=== PATIENT | male | born 1985 | race Caucasian/White ===

== ENCOUNTER 2021-10-20 22:40 | Emergency (ER) | payer MEDICARE, MEDICAID, SELFPAY ==
--- NOTE | ~2021-10-20 | XR_ITS ---
EXAMINATION: XR CHEST CLINICAL INFORMATION: Chest pain. COMPARISON: None TECHNIQUE: PA view of the chest was obtained. FINDINGS: Normal appearance of the cardiomediastinal silhouette. Adequately expanded lungs without airspace opacities, pleural effusions or pneumothorax. Healing bilateral rib fractures. No acute osseous abnormalities. XR/XR chest 1V IMPRESSION: No acute cardiopulmonary findings.
[2021-10-20 22:43] VITALS: BP 127/81; PULSE 85; RESP 18; TEMP 36.5; O2SAT 96; BMI 29.0
--- NOTE | 2021-10-20 22:50 | ECG_ITS ---
Test Reason : Chest Pain Blood Pressure : / mmHG Vent. Rate : 082 BPM Atrial Rate : 082 BPM P-R Int : 162 ms QRS Dur : 082 ms QT Int : 378 ms P-R-T Axes : 051 017 055 degrees QTc Int : 441 ms Normal sinus rhythm Normal ECG No previous ECGs available Referred By: Generic ED Physician Electronically Signed By:RYANN PALENCIA MD
--- NOTE | 2021-10-21 00:06 | ED_ITS ---
HPI - Chest Pain General Chief Complaint: Chest Pain Stated Complaint: Chest pain Time Seen by Provider: 10/21/21 00:06 Source: patient Mode of arrival: ambulatory Limitations: no limitations History of Present Illness HPI narrative: Patient with history of substance abuse cocaine and heroin clear for last 3 months smokes cigarettes no cardiac history noticed pain on the left side of chest after walking about 2 miles, patient does walk couple of miles every day which is usual for him. Pain is dull in character, constant since 16:00 no radiation get worse on palpation and movements , feels slight shortness of breath. Not been vaccinated lungs COVID no cough Related Data Allergies Allergy/AdvReac Type Severity Reaction Status Date / Time acetaminophen [ACETAMINOPHEN] Allergy Mild HIVES Unverified 08/15/20 17:23 Review of Systems Review of Systems: Yes all other systems are reviewed and are negative [facility] Past Medical History Medical History Drug abuse Social History Social History Alcohol intake: former Patient Tobacco Use Status: Current everyday Tobacco user Use of substances other than those prescribed or required for medical reasons: Unknown Advance Directives: No Advance Directives Information Provided: No Physical Exam Vital Signs: Vital Signs: Last Vital Signs Temp 97.9 F 10/21/21 00:16 Pulse 74 10/21/21 00:16 Resp 16 10/21/21 00:16 BP 123/90 H 10/21/21 00:16 Pulse Ox 98 10/21/21 00:16 Body Mass Index 29.0 Appearance: Alert. Oriented X3. No acute distress. Eyes: No pallor or icterus ENT: Pharynx normal. Oral Mucosa moist Neck: Normal inspection. Neck supple. CVS: Normal heart rate and rhythm. Pulses normal. Left chest wall tenderness++ Respiratory: No respiratory distress. Equal air entry bilateral, no wheezing/rales/rhonchi Abdomen: Soft and nontender. Bowel sounds are present, no mass palpable, no CVA tenderness Skin: Skin warm and dry. Normal skin color. Normal skin turgor. Extremities: No lower extremity edema. No calf tenderness Neuro: Oriented X 3. No motor deficit. MDM - Chest Pain MDM Narrative Medical decision making narrative: Patient atypical chest pain normal EKG normal high sensitive troponin with no risk factors heart score of 0 will discharge patient home advised to follow up with PCP/[facility] Lab Data Attestation: I reviewed the patient's lab results. Result diagrams: 10/21/21 00:14 10/21/21 00:14 Labs: Lab Results 10/21/21 10/21/21 10/21/21 Range/Units 00:14 00:14 00:14 WBC 11.3 H (4.8-10.8) X10*3/uL RBC 3.75 L (4.60-5.80) X10*6/uL Hgb 11.5 L (14.0-18.0) g/dl Hct 36.2 L (42.0-52.0) % MCV 96.5 (80.0-98.0) fL MCH 30.7 (27.0-33.0) pg MCHC 31.8 (31.0-36.0) g/dl RDW 14.0 (11.0-16.0) % Plt Count 463 H (160-400) X10*3/uL MPV 9.1 L (9.4-12.4) fL Immature Gran % (Auto) 0.4 (0.0-0.4) % Neut % (Auto) 53.0 (45-73) % Lymph % (Auto) 34.0 (20-40) % [place] % (Auto) 8.8 (2-11) % Eos % (Auto) 3.5 (0-4) % Baso % (Auto) 0.3 (0-2) % Lymph # (Auto) 3.8 (1.2-4.9) X10*3/uL [place] # (Auto) 1.0 (0.1-1.2) X10*3/uL Eos # (Auto) 0.4 (0.0-0.4) X10*3/uL Baso # (Auto) 0.0 (0.0-0.2) X10*3/uL Abs Immat Gran (auto) 0.05 H (0.00-0.03) X10*3/uL Absolute Neuts (auto) 6.0 (2.0-8.3) x10*3/uL Absolute Nucleated RBC 0.000 (0.0-0.012) X10*3/uL Nucleated RBC % (auto) 0.0 (0.0-0.2) /100WBC Sodium 144 (135-145) mmol/L Potassium 3.5 (3.3-5.1) mmol/L Chloride 106 (96-108) mmol/L Carbon Dioxide 31 H (22-29) mmol/L Anion Gap 11 L (12-20) BUN 15 (9-16) mg/dL Creatinine 1.22 (0.5-1.4) mg/dL Estim Creat Clear Calc 87.5 Estimated GFR > 60 Random Glucose 110 (60-115) mg/dL Calcium 9.1 (8.4-10.2) mg/dL Troponin I High Sens 4.2 (<3.5-35.0) ng/L ECG Data ECG #1: Interpretation: Normal sinus rhythm heart rate 82 beats per minute normal intervals normal axis no acute ST-T changes no acute ischemia impression normal EKG Scores Heart Score History: -0- slightly suspicious ECG: -0- normal Age: -0- < or = 45 Risk factory: -0- no risk factors known Troponin: -0- < or = normal limit Score: 0 Risk: 1.7% Discharge Plan Discharge Clinical Impression: Chest pain Qualifiers: Chest pain type: precordial pain Qualified Code(s): R07.2 - Precordial pain Patient Disposition: Home, Self-Care Instructions: Chest Pain (ED) Additional Instructions: Follow-up with your PCP for further evaluation your chest pain is unlikely from the heart Do not use cocaine
[2021-10-21 00:16] VITALS: BP 123/90; PULSE 74; RESP 16; TEMP 36.6; O2SAT 98
[2021-10-21 00:22] LABS: MANUAL DIFF FLAG NO
[2021-10-21 00:23] LABS: Basophils Percent Auto 0.3 % (0-2); Eosinophils Absolute Auto 0.4 X10*3/uL (0.0-0.4); Eosinophils Percent Auto 3.5 % (0-4); Hematocrit 36.2 % (42.0-52.0); Hemoglobin 11.5 g/dl (14.0-18.0); Imm Gran Abs Auto 0.05 X10*3/uL (0.00-0.03); Imm Gran Pct Auto 0.4 % (0.0-0.4); Lymphocytes Absolute Auto 3.8 X10*3/uL (1.2-4.9); Mean Corpuscular HGB Conc 31.8 g/dl (31.0-36.0); Mean Corpuscular Hemoglobin 30.7 pg (27.0-33.0); Mean Corpuscular Volume 96.5 fL (80.0-98.0); Mean Platelet Volume 9.1 fL (9.4-12.4); Monocytes Percent Auto 8.8 % (2-11); Platelet Count 463 X10*3/uL (160-400); Red Blood Count 3.75 X10*6/uL (4.60-5.80); White Blood Count 11.3 X10*3/uL (4.8-10.8)
[2021-10-21 00:37] LABS: Anion Gap 11 (12-20); Blood Urea Nitrogen 15 mg/dL (9-16); Calcium 9.1 mg/dL (8.4-10.2); Carbon Dioxide 31 mmol/L (22-29); Chloride 106 mmol/L (96-108); Creatinine Clr Calc Pharmacy 87.5; Estimated Glomerular Filt Rate > 60; Glucose Random 110 mg/dL (60-115); Potassium 3.5 mmol/L (3.3-5.1); Sodium 144 mmol/L (135-145)
[2021-10-21 00:42] LABS: Troponin-I High Sensitivity 4.2 ng/L (<3.5-35.0)
[2021-10-21] MEDS: Aspirin 81 MG TAB.CHEW 162 MG PO (00:51)
== END 2021-10-21 01:34 | disposition home or self-care (01) ==
PROVIDERS: Emergency Provider Internal Medicine
DX: R07.2 Precordial pain (principal); Z79.899 Other long term (current) drug therapy; Z87.891 Personal history of nicotine dependence
CPT/HCPCS: 36415; 71045; 80048; 84484; 85025; 93005; 99284; 99285

== ENCOUNTER 2021-11-24 14:32 | Emergency (ER) | payer MEDICARE, MEDICAID, SELFPAY ==
[2021-11-24 14:41] VITALS: BP 145/81; PULSE 18; O2SAT 95
== END 2021-11-24 19:03 | disposition left against medical advice (07) ==
PROVIDERS: Emergency Provider Emergency Medicine
DX: S01.91XA Laceration without foreign body of unspecified part of head, initial encounter (principal); X58.XXXA Exposure to other specified factors, initial encounter; Y93.9 Activity, unspecified; Y92.9 Unspecified place or not applicable; Y99.9 Unspecified external cause status

== ENCOUNTER 2022-09-18 22:40 | Emergency (ER) | payer MEDICARE, MEDICAID, SELFPAY ==
--- NOTE | ~2022-09-18 | XR_ITS ---
EXAMINATION: XR CHEST CLINICAL INFORMATION: Cough COMPARISON: 06/19/2021 TECHNIQUE: 2 views of the chest were obtained. FINDINGS: Streaky airspace opacities in the left perihilar region. Right hilar fullness favored to be projectional. Normal cardiac mediastinal silhouette. No pleural effusion or pneumothorax. No acute osseous abnormalities. XR/XR chest 2V IMPRESSION: Left perihilar streaky airspace opacity suspicious for pneumonia.
[2022-09-18 22:46] VITALS: PULSE 90; O2SAT 98; BMI 23.6
[2022-09-18 23:02] VITALS: BP 153/88; PULSE 88; RESP 16; TEMP 36.9; O2SAT 95
[2022-09-18 23:26] LABS: COVID-19 Test Negative (Negative)
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
--- NOTE | 2022-09-19 02:06 | PC.NURSE ---
Pt sleeping in no apparent distress. Breaths are even and unlabored with equal chest rises. Will continue to monitor.
[2022-09-19 06:01] VITALS: BP 125/66; PULSE 67; RESP 18; TEMP 36.5; O2SAT 98
[2022-09-19] MEDS: Naloxone HCl Nasal TAKE HOME 4 MG SPRAY NOSTRILALT (07:47)
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
== END 2022-09-19 08:11 | disposition home or self-care (01) ==
PROVIDERS: Emergency Provider Student in an Organized Health Care Education/Training Program
DX: F19.10 Other psychoactive substance abuse, uncomplicated (principal); J18.9 Pneumonia, unspecified organism; R45.1 Restlessness and agitation; F17.200 Nicotine dependence, unspecified, uncomplicated; Z20.822 Contact with and (suspected) exposure to COVID-19
CPT/HCPCS: 71046; 87635; 99283; 99284

== ENCOUNTER 2022-09-26 14:20 | Emergency (ER) | payer MEDICARE, MEDICAID, SELFPAY ==
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
[2022-09-26 14:29] VITALS: BP 128/80; PULSE 99; RESP 18; TEMP 36.7; O2SAT 95; BMI 23.5
--- NOTE | 2022-09-26 16:04 | ECG_ITS ---
Test Reason : CHEST PAIN Blood Pressure : / mmHG Vent. Rate : 078 BPM Atrial Rate : 078 BPM P-R Int : 152 ms QRS Dur : 078 ms QT Int : 366 ms P-R-T Axes : 057 050 052 degrees QTc Int : 417 ms Normal sinus rhythm Normal ECG When compared with ECG of 20-OCT-2021 22:57, No significant change was found Referred By: Wendy Jay Electronically Signed By:RYANN PALENCIA MD
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
[2022-09-26] MEDS: Diphth,Pertus(ACell),Tet Adult 0.5 ML SYRINGE IM (16:40)
[2022-09-26] MEDS: cefTRIAXone sodium 500 MG, Lidocaine HCl 1 % MPF 1 ML IM (17:12)
--- NOTE | 2022-09-26 17:12 | PC.NURSE ---
Nica from pharmacy instructed to orverride lidocaine from [facility] pyxis for ceftriaxone
== END 2022-09-26 17:17 | disposition home or self-care (01) ==
PROVIDERS: Emergency Provider Emergency Medicine
DX: S00.212A Abrasion of left eyelid and periocular area, initial encounter (principal); J18.9 Pneumonia, unspecified organism; R07.89 Other chest pain; F14.90 Cocaine use, unspecified, uncomplicated; Y04.2XXA Assault by strike against or bumped into by another person, initial encounter; Y93.9 Activity, unspecified; Y92.9 Unspecified place or not applicable; Y99.9 Unspecified external cause status; Z79.899 Other long term (current) drug therapy
CPT/HCPCS: 71046; 90471; 90715; 93005; 96372; 99284; J0696

== ENCOUNTER 2022-10-21 01:28 | Observation (INO) | payer MEDICARE, MEDICAID, SELFPAY ==
--- NOTE | ~2022-10-21 | CT_ITS ---
EXAMINATION: CT ELBOW, LEFT WITH CONTRAST CLINICAL INFORMATION: Pain. Rule out abscess. COMPARISON: None TECHNIQUE: Multidetector volumetric imaging of the left elbow performed after administration of 85 mL of Omnipaque 350 IV contrast. Coronal and sagittal reformatted images are obtained and reviewed. This CT examination was performed using dose optimization techniques as appropriate, variously including the following: *Automated exposure control *Adjustment of mA and/or kV according to patient size (this includes techniques or standardized protocols for targeted exams where dose is matched to indication/reason for exam; i.e. extremities or head) *Use of iterative reconstruction technique DLP: 108 mGy-cm FINDINGS: There is no fracture or dislocation. Appropriate alignment at the elbow. Joint spaces are maintained. There is no elbow joint effusion. There is a 0.4 cm radiopaque BB in the soft tissues along the radial aspect of the elbow at the level of the radial neck. This is within the musculature. Mild superficial edema over the dorsal aspect of the elbow. There is superficial skin irregularity. In this area there is more confluent fluid concerning for a developing collection. This measures approximately 1.9 x [address]/CT elbow LT w IV con IMPRESSION: 1. Superficial edema over the dorsal aspect of the elbow with superficial skin irregularity. There is underlying more confluent fluid concerning for a developing collection. This measures 1.9 x 1 x 1.2 cm. 2. Radiopaque BB in the musculature along the radial aspect of the elbow. 3. No acute osseous abnormality. No elbow joint effusion.
[2022-10-21 01:39] VITALS: BP 142/92; PULSE 92; RESP 18; TEMP 37.1; O2SAT 96; BMI 22.4
[2022-10-21 02:03] LABS: MANUAL DIFF FLAG NO
[2022-10-21 02:04] LABS: Basophils Absolute Auto 0.1 X10*3/uL (0.0-0.2); Basophils Percent Auto 0.6 % (0-2); Eosinophils Absolute Auto 0.3 X10*3/uL (0.0-0.4); Eosinophils Percent Auto 1.5 % (0-4); Hematocrit 38.3 % (42.0-52.0); Hemoglobin 12.3 g/dl (14.0-18.0); Imm Gran Abs Auto 0.07 X10*3/uL (0.00-0.03); Imm Gran Pct Auto 0.4 % (0.0-0.4); Lymphocytes Absolute Auto 3.1 X10*3/uL (1.2-4.9); Lymphocytes Percent Auto 19.2 % (20-40); Mean Corpuscular HGB Conc 32.1 g/dl (31.0-36.0); Mean Corpuscular Hemoglobin 28.3 pg (27.0-33.0); Mean Corpuscular Volume 88.2 fL (80.0-98.0); Mean Platelet Volume 8.9 fL (9.4-12.4); Monocytes Absolute Auto 1.1 X10*3/uL (0.1-1.2); Monocytes Percent Auto 6.9 % (2-11); Neutrophils Absolute Auto 11.7 x10*3/uL (2.0-8.3); Neutrophils Percent Auto 71.4 % (45-73); Platelet Count 423 X10*3/uL (160-400); Red Blood Count 4.34 X10*6/uL (4.60-5.80); Red Cell Distribution Width 12.7 % (11.0-16.0); White Blood Count 16.4 X10*3/uL (4.8-10.8)
[2022-10-21 02:14] VITALS: BP 143/93; PULSE 93; RESP 17; TEMP 37.3; O2SAT 96
[2022-10-21 02:18] LABS: Alanine Aminotransferase 18 U/L (0-40); Alkaline Phosphatase 90 U/L (39-117); Anion Gap 16 (12-20); Aspartate Amino Transferase 22 U/L (5-37); Bilirubin Direct < 0.2 mg/dL (0.0-0.5); Bilirubin Total 0.3 mg/dL (0.0-1.0); Blood Urea Nitrogen 12 mg/dL (9-16); Calcium 8.7 mg/dL (8.4-10.2); Carbon Dioxide 25 mmol/L (22-29); Chloride 98 mmol/L (96-108); Creatinine Clr Calc Pharmacy 121.7; Estimated Glomerular Filt Rate > 60; Glucose Random 215 mg/dL (60-115); Potassium 3.5 mmol/L (3.3-5.1); Sodium 135 mmol/L (135-145)
--- NOTE | 2022-10-21 02:45 | PC.NURSE ---
PT has been in restroom for approximately 15 min. This RN has knocked on door 3 times, each time pt reports not needing any help.
--- NOTE | 2022-10-21 03:10 | ED_ITS ---
HPI - Skin/Abscess/Foreign Bdy General Chief complaint: Skin/Abscess/Foreign Body Stated complaint: abscess on arm Time Seen by Provider: 10/21/22 02:15 Source: patient Mode of arrival: ambulatory Limitations: no limitations History of Present Illness HPI narrative: patient comes to the emergency room complaining of worsening abscess in the left elbow. Patient states it has been there for 4 days, started out with a scab which grew rapidly. Patient did went yesterday to a clinic, states that they were unwilling to drain the abscess and he was discharged home. The marked the area with a skin marker. The redness has significantly spread down his arm to his hand, no dorsum of the hand is swollen and erythematous. Patient denies fever chills. Patient was not started on antibiotics. Patient is willing to stay in the hospital if need be. Patient states that the joint itself does not hurt, it is the skin distal to the elbow that hurts the most. Patient denies fever/chills. Patient denies IV drug use, admits to snort drugs Related Data Previous Rx's Medication Instructions Recorded doxycycline hyclate 100 mg tablet 100 mg PO BID 5 days #10 tabs 09/19/22 Allergies Allergy/AdvReac Type Severity Reaction Status Date / Time acetaminophen [ACETAMINOPHEN] Allergy Mild HIVES Unverified 08/15/20 17:23 Review of Systems Review of Systems: Constitutional : No Weight loss, No Fever, No Chills, No Night Sweats, No Fatigue, No Malaise ENT/Mouth : No Hearing loss, No Ear Pain, No Nasal Congestion, No Sinus Pain, No Hoarseness, No sore throat, No Rhinorrhea, No Swallowing Difficulty Eyes: No Eye Pain, No Swelling, No Redness, No Foreign Body, No Discharge, No Vision Changes Cardiovascular : No Chest Pain, No SOB, No Dyspnea on Exertion, No Orthopnea, No Edema, No Palpitations Respiratory : No Cough, No Sputum, No Wheezing, No Smoke Exposure, No Dyspnea Gastrointestinal : No Nausea, No Vomiting, No Diarrhea, No Constipation, No abdominal Pain, No Hematochezia, No Melena Genitourinary : no irregular bleeding, No Dysuria, No Urinary Frequency, No Hematuria, No Urinary Incontinence, No Urgency, No Flank Pain, No Urinary Flow Changes, No Hesitancy Musculoskeletal : No joint pain, No Myalgias, No Joint Swelling Skin : complaining of cellulitis, erythema, draining abscess close to the left elbow Neuro : No Weakness, No Numbness, No Paresthesias, No Loss of Consciousness, No Dizziness, No Headache Psych : No Anxiety/Panic, No Depression, No SI/HI/AH/VH, No Social Issues, Heme/Lymph: No Bruising, No Bleeding,No Lymphadenopathy Endocrine : No Polyuria, No Polydipsia, No Temperature Intolerance [facility] Past Medical History Medical History Drug abuse Social History Social History Alcohol intake: never Patient Tobacco Use Status: Current everyday Tobacco user Substance Use Type: Crack/Cocaine Advance Directives: No Physical Exam Vital Signs: Vital Signs: Last Vital Signs Temp 99.2 F 10/21/22 02:14 Pulse 90 10/21/22 03:41 Resp 12 10/21/22 03:41 BP 119/70 10/21/22 03:41 Pulse Ox 99 10/21/22 03:41 O2 Del Method 10/21/22 03:41 BMI result Body Mass Index 22.4 Const: Other: Appearance: Alert. Oriented X3. No acute distress. Eyes: Pupils equal, round and reactive to light. ENT: Pharynx normal. Neck: Normal inspection. Neck supple. No lymph nodes noted. No crepitus CVS: Normal heart rate and rhythm. Pulses normal. Normal S1 and S2 Respiratory: No respiratory distress. Breath sounds normal. No Wheezing. No rales Abdomen: Soft and nontender. No rigidity. No distention. Skin: Skin warm and dry. on the left arm, there is significant erythema and swelling, the picture below Extremities: No lower extremity edema. patient able to flex and extend the elbow on the left side Neuro: Oriented X 3. No motor deficit. No sensory deficit. Moving all extremities. No slurred speech. CN 2 through 12 grossly intact Psych: calm, cooperative, normal affect Course Course Course Narrative: I discussed with the patient that he will need IV antibiotics, patient willing to stay. Labs and CT scan pending white blood cell count elevated, lactic acid within normal limits. No fever, normal blood pressure, sepsis not suspected. CT scan shows a possible fluid Collection patient received IV antibiotics, vancomycin and Zosyn I discussed the patient with Dr. Holloway, patient being admitted Medications Administered Discontinued Medications Generic Name Dose Route Start Last Admin Trade Name Freq PRN Reason Stop Dose Admin Piperacillin Sod/Tazobactam 50 mls @ 100 mls/hr 10/21/22 02:57 10/21/22 03:51 Sod 3.375 gm/ Sodium Chloride IV 10/21/22 03:26 100 mls/hr ONCE ONE Administration Iohexol 85 ml 10/21/22 03:42 10/21/22 03:43 Iohexol 350 Mg/Ml 100 Ml Infus..Btl IV 10/21/22 03:43 85 ml ONCE ONE Administration MDM - Skin/Abscess/Foreign Bdy Lab Data Result diagrams: 10/21/22 01:56 10/21/22 01:56 Labs: Lab Results 10/21/22 10/21/22 10/21/22 Range/Units 01:56 01:56 01:56 WBC 16.4 H (4.8-10.8) X10*3/uL RBC 4.34 L (4.60-5.80) X10*6/uL Hgb 12.3 L (14.0-18.0) g/dl Hct 38.3 L (42.0-52.0) % MCV 88.2 (80.0-98.0) fL MCH 28.3 (27.0-33.0) pg MCHC 32.1 (31.0-36.0) g/dl RDW 12.7 (11.0-16.0) % Plt Count 423 H (160-400) X10*3/uL MPV 8.9 L (9.4-12.4) fL Immature Gran % (Auto) 0.4 (0.0-0.4) % Neut % (Auto) 71.4 (45-73) % Lymph % (Auto) 19.2 L (20-40) % [place] % (Auto) 6.9 (2-11) % Eos % (Auto) 1.5 (0-4) % Baso % (Auto) 0.6 (0-2) % Lymph # (Auto) 3.1 (1.2-4.9) X10*3/uL [place] # (Auto) 1.1 (0.1-1.2) X10*3/uL Eos # (Auto) 0.3 (0.0-0.4) X10*3/uL Baso # (Auto) 0.1 (0.0-0.2) X10*3/uL Abs Immat Gran (auto) 0.07 H (0.00-0.03) X10*3/uL Absolute Neuts (auto) 11.7 H (2.0-8.3) x10*3/uL Absolute Nucleated RBC 0.000 (0.0-0.012) X10*3/uL Nucleated RBC % (auto) 0.0 (0.0-0.2) /100WBC ESR (0-15) MM/HR Sodium 135 (135-145) mmol/L Potassium 3.5 (3.3-5.1) mmol/L Chloride 98 (96-108) mmol/L Carbon Dioxide 25 (22-29) mmol/L Anion Gap 16 (12-20) BUN 12 (9-16) mg/dL Creatinine 0.77 (0.5-1.4) mg/dL Estim Creat Clear Calc 121.7 Estimated GFR > 60 Random Glucose 215 H (60-115) mg/dL Lactic Acid 2.0 (0.5-2.0) mmol/L Calcium 8.7 (8.4-10.2) mg/dL Total Bilirubin 0.3 (0.0-1.0) mg/dL Direct Bilirubin < 0.2 (0.0-0.5) mg/dL AST 22 (5-37) U/L ALT 18 (0-40) U/L Alkaline Phosphatase 90 (39-117) U/L C-Reactive Protein 10.20 H (< or = 0.50) mg/dL Total Protein 7.0 (6.5-8.0) g/dL Albumin 4.0 (3.5-5.0) g/dL 10/21/22 Range/Units 01:56 WBC (4.8-10.8) X10*3/uL RBC (4.60-5.80) X10*6/uL Hgb (14.0-18.0) g/dl Hct (42.0-52.0) % MCV (80.0-98.0) fL MCH (27.0-33.0) pg MCHC (31.0-36.0) g/dl RDW (11.0-16.0) % Plt Count (160-400) X10*3/uL MPV (9.4-12.4) fL Immature Gran % (Auto) (0.0-0.4) % Neut % (Auto) (45-73) % Lymph % (Auto) (20-40) % [place] % (Auto) (2-11) % Eos % (Auto) (0-4) % Baso % (Auto) (0-2) % Lymph # (Auto) (1.2-4.9) X10*3/uL [place] # (Auto) (0.1-1.2) X10*3/uL Eos # (Auto) (0.0-0.4) X10*3/uL Baso # (Auto) (0.0-0.2) X10*3/uL Abs Immat Gran (auto) (0.00-0.03) X10*3/uL Absolute Neuts (auto) (2.0-8.3) x10*3/uL Absolute Nucleated RBC (0.0-0.012) X10*3/uL Nucleated RBC % (auto) (0.0-0.2) /100WBC ESR 32 H (0-15) MM/HR Sodium (135-145) mmol/L Potassium (3.3-5.1) mmol/L Chloride (96-108) mmol/L Carbon Dioxide (22-29) mmol/L Anion Gap (12-20) BUN (9-16) mg/dL Creatinine (0.5-1.4) mg/dL Estim Creat Clear Calc Estimated GFR Random Glucose (60-115) mg/dL Lactic Acid (0.5-2.0) mmol/L Calcium (8.4-10.2) mg/dL Total Bilirubin (0.0-1.0) mg/dL Direct Bilirubin (0.0-0.5) mg/dL AST (5-37) U/L ALT (0-40) U/L Alkaline Phosphatase (39-117) U/L C-Reactive Protein (< or = 0.50) mg/dL Total Protein (6.5-8.0) g/dL Albumin (3.5-5.0) g/dL Discharge Plan Discharge Clinical Impression: Cellulitis Patient Disposition: Admitted As Inpatient
[2022-10-21 03:41] VITALS: BP 119/70; PULSE 90; RESP 12; O2SAT 99
[2022-10-21 03:42] LABS: Erythrocyte Sedimentation Rate 32 MM/HR (0-15)
[2022-10-21] MEDS: iohexoL 350 MG/ML 100 ML INFUS..BTL 85 ML IV (03:43)
[2022-10-21] MEDS: Piperacillin Sodium/Tazobactam 3.375 GM in 0.9 % Sodium Chloride 50 ML IV (03:51)
[2022-10-21] MEDS: vancomycin HCL 1,500 MG in 0.9 % Sodium Chloride 500 ML 333.33 MG IV (04:33)
[2022-10-21 04:56] LABS: COVID-19 Test Negative (Negative)
[2022-10-21 06:13] VITALS: BP 124/73; PULSE 85; RESP 12; TEMP 37.2; O2SAT 99
--- NOTE | 2022-10-21 06:13 | PC.NURSE ---
Pt given Food and drinks after checking with Johnson Hurtado. Pt requested the urinal and had a output of 600. Pt given call sol and two sandwiches and naila emily
--- NOTE | 2022-10-21 07:08 | P.HPHOSP_ITS ---
History of Present Illness Date of Service: 10/21/22 Chief Complaint: left elbow abscess 37-year-old male with past medical history of heroin abuse not by injection, presents the hospital with complaints of left elbow abscess. Patient is sleepy, but wakes up answers my questions and falls back asleep. Patient reported to the ED physician that he had this abscess about 4 days ago, started initially with a scab which grew rapidly. He went to a walk-in clinic yesterday, was recommended to drain the abscess but patient declined, who was given doxycycline and sent home. He comes back stating worsening redness swelling and pain. Denied fever chills, he has no difficulty with moving his elbow on no pain in the joint. On arrival to the ED patient hemodynamically stable with no significant abnormal vital Labs are significant for WBC count of 16.4, hemoglobin of 12.3, hematocrit 30.3, ESR 32, CRP of 10.2, COVID-19 negative Superficial edema over the dorsal aspect of the elbow superficial skin irregularity, underlying developing collection 1.1 x 1 x 1.2 cm. Abscess was drained in the ED and patient will be admitted for further management Review of Systems Review of Systems: Patient very sleepy, wakes up answers some questions and falls asleep Yes Unobtainable due to mental status PMFSH Medical History (Updated 10/21/22 @ 07:12 by Brodie Holloway MD) Drug abuse Heroin abuse Pertinent family history: Unknown Surgical History (Updated 10/21/22 @ 07:13 by Brodie Holloway MD) Surgical history unknown Social History (Updated 10/21/22 @ 07:13 by Brodie Holloway MD) Alcohol intake: never Patient Tobacco Use Status: Current everyday Tobacco user Use of substances other than those prescribed or required for medical reasons: Unknown Substance Use Type: Crack/Cocaine Advance Directives: No Meds Allergies Allergy/AdvReac Type Severity Reaction Status Date / Time acetaminophen [ACETAMINOPHEN] Allergy Mild HIVES Verified 10/21/22 04:23 Physical Exam Vital Signs and Narrative: Vital Signs: Last Vital Signs Temp 98.9 F 10/21/22 06:13 Pulse 85 10/21/22 06:13 Resp 12 10/21/22 06:13 BP 124/73 10/21/22 06:13 Pulse Ox 99 10/21/22 06:13 O2 Del Method 10/21/22 06:13 BMI result Body Mass Index 22.4 Skin: Other: Abscess at the left elbow, significant erythema edema tenderness and warmth of left arm from elbow to hand Results Labs CBC and Chem 7: 10/21/22 01:56 10/21/22 01:56 Labs: Laboratory Results - last 24 hr 10/21/22 10/21/22 10/21/22 01:56 01:56 01:56 MCV 88.2 MCH 28.3 MCHC 32.1 RDW 12.7 Plt Count 423 H MPV 8.9 L Immature Gran % (Auto) 0.4 Neut % (Auto) 71.4 Lymph % (Auto) 19.2 L [place] % (Auto) 6.9 Eos % (Auto) 1.5 Baso % (Auto) 0.6 Lymph # (Auto) 3.1 [place] # (Auto) 1.1 Eos # (Auto) 0.3 Baso # (Auto) 0.1 Abs Immat Gran (auto) 0.07 H Absolute Neuts (auto) 11.7 H Absolute Nucleated RBC 0.000 Nucleated RBC % (auto) 0.0 ESR Anion Gap 16 Estim Creat Clear Calc 121.7 Estimated GFR > 60 Random Glucose 215 H Lactic Acid 2.0 Calcium 8.7 Total Bilirubin 0.3 Direct Bilirubin < 0.2 AST 22 ALT 18 Alkaline Phosphatase 90 C-Reactive Protein 10.20 H Total Protein 7.0 Albumin 4.0 COVID-19 ([facility]) COVID-19 Clin Com 10/21/22 10/21/22 01:56 04:38 MCV MCH MCHC RDW Plt Count MPV Immature Gran % (Auto) Neut % (Auto) Lymph % (Auto) [place] % (Auto) Eos % (Auto) Baso % (Auto) Lymph # (Auto) [place] # (Auto) Eos # (Auto) Baso # (Auto) Abs Immat Gran (auto) Absolute Neuts (auto) Absolute Nucleated RBC Nucleated RBC % (auto) ESR 32 H Anion Gap Estim Creat Clear Calc Estimated GFR Random Glucose Lactic Acid Calcium Total Bilirubin Direct Bilirubin AST ALT Alkaline Phosphatase C-Reactive Protein Total Protein Albumin COVID-19 ([facility]) Negative COVID-19 Clin Com See Note Imaging Radiologist's Impressions: Impressions Elbow CT 10/21/22 03:23 IMPRESSION: 1. Superficial edema over the dorsal aspect of the elbow with superficial skin irregularity. There is underlying more confluent fluid concerning for a developing collection. This measures 1.9 x 1 x 1.2 cm. 2. Radiopaque BB in the musculature along the radial aspect of the elbow. 3. No acute osseous abnormality. No elbow joint effusion. Assessment and Plan (1) Cellulitis: Status: Acute (2) Abscess of left elbow: Status: Acute Plan 37-year-old male with past medical history of heroin crack abuse abuse by sniffing, denies IV drug use presents to the hospital with ulcer/abscess/cellulitis of left arm # cellulitis of left arm - will treat with IV antibiotics - failed outpatient therapy with doxycycline - follow cultures # abscess of left elbow -CT of the elbow shows collection 1.9 x 1 x 1.2 cm - abscess extraction was attempted in the ED - consult surgical team - continue IV antibiotics - follow cultures # heroin/crack cocaine abuse - reports no IV drug use, and sniffs both - monitor for drawl DVT prophylaxis: Lovenox Given need for IV antibiotics and failed outpatient therapy patient require minimum 2 night inpatient hospital Quality Stroke Does the patient have a stroke diagnosis?: No VTE Prior VTE?: No VTE Risk Level:: Medical - moderate - high VTE Device Contraindication: Treatment Not Indicated VTE Drug Contraindication: N/A - Med Ordered
[2022-10-21 07:45] VITALS: BP 135/83; PULSE 89; RESP 12; TEMP 36.4; O2SAT 99
[2022-10-21 08:23] VITALS: BMI 22.1
[2022-10-21 08:55] VITALS: BP 120/69; PULSE 87; RESP 12; TEMP 36.9; O2SAT 100
--- NOTE | 2022-10-21 09:29 | MHC.CM.PN ---
pt reports being home less covid vax x 2 pt will be seen by care team
[2022-10-21] MEDS: 0.9 % Sodium Chloride Flush 3 ML SYRINGE IVFLUSH (10:09)
--- NOTE | 2022-10-21 10:09 | PHA.MEDREC ---
Pharmacy Consult ? Medication Reconciliation Pharmacy has completed the medication reconciliation. Patient reports no home medications. Nica Iyer, HonorioD
--- NOTE | 2022-10-21 11:33 | P.CONGS_ITS ---
History of Present Illness Consult details Consult date: 10/21/22 Requesting physician: Brodie Holloway Narrative: 37-year-old male patient presenting to the emergency department with a left elbow abscess. He has a history of IV drug use and reports the abscess began approximately 4 days prior to presentation. The pain increased as did the swelling of the lower arm over the next several days. He presented initially to a walk-in clinic but refused incision and drainage. He was started on doxycycline was subsequently presented to the emergency department this morning. In the emergency department he was noted to have a WBC of 16.4. An area of black eschar was noted below the elbow with swelling extending down to the hand. A CT of the left elbow revealed superficial edema over the dorsal aspect of the elbow with superficial skin irregularity. There is underlying more confluent fluid concerning for developing collection measuring 1.9 x 1.0 x 1.2 cm. Radiopaque BB in the musculature along the radial aspect of the elbow is also noted. No acute osseous abnormality or elbow joint effusion. Incision and drainage was performed in the emergency department the ED physician. He was admitted to the hospitalist service for IV antibiotics. This morning patient reports improvement in the pain of his elbow. He is unaware of any BB in his arm. He denies fever or chills. Review of Systems Review of Systems: Yes all other systems are reviewed and are negative Constitutional: Constitutional: Denies chills and Denies fever(s) Musculoskeletal: Musculoskeletal: Reports as per HPI and Reports joint swelling Integumentary/Breasts: Skin/Breast: Reports as per HPI, Reports skin swelling, Reports sores and Reports wounds PMFSH Past Medical History Medical History Drug abuse Heroin abuse Surgical History Surgical History Surgical history unknown Social History Social History Household Members: Other Household Members Other:: Homeless Housing: Homeless Do you presently have visiting nurse or other home services: No Unable to assess alcohol history related to: Unable to respond Alcohol intake: never Patient Tobacco Use Status: Current everyday Tobacco user Tobacco use type: Cigarette Smoked in Last 30 Days: Yes Patient Interested in Nicotine Replacement: No Patient Given Instructions on How to Stop Smoking: No Use of substances other than those prescribed or required for medical reasons: Unknown Substance Use Type: Heroin Substance Use Frequency: Daily Last Used Substance: Just Prior to Admission Currently Displaying Signs/Symptoms of Drug Intoxication Withdrawal: No Have you been hit, kicked, punched, or otherwise hurt by someone within the past year? If so, by whom?: No Do you feel safe in your current relationship?: No Current Relationship Is there a partner from a previous relationship who is making you feel unsafe now?: No Are you made to feel afraid or neglected: No Advance Directives: No Do you have thoughts of harming others: None Do you have a plan to hurt others: No Plan Recently lost weight without trying: No Nutrition Risks: No Nutritional Risk Poor oral hygiene: No service: No Meds Allergies Allergy/AdvReac Type Severity Reaction Status Date / Time acetaminophen [ACETAMINOPHEN] Allergy Mild HIVES Verified 10/21/22 04:23 Active Medications: Current Medications Docusate Sodium (Docusate Sodium 100 Mg Capsule) 100 mg PO DAILY PRN PRN Reason: Constipation Vancomycin HCl 1,250 mg/ (Sodium Chloride) 250 mls @ 166.667 mls/hr IV Q12H [facility] Morphine Sulfate (Morphine Sulfate 4 Mg/Ml Cartridge) 4 mg IVPUSH Q4H PRN; Protocol PRN Reason: Pain, Severe (Pain Scale 7-10) Ondansetron HCl (Ondansetron Hcl 4 Mg/2 Ml Vial) 4 mg IVPUSH Q8H PRN PRN Reason: Nausea and Vomiting Pharmacy Consult (Consult Rx Vancomycin Dosing) 1 each MISCELLANE DAILY PRN PRN Reason: Consult order Sodium Chloride (0.9 % Sodium Chloride Flush 3 Ml Syringe) [facility] Admin: 10/21/22 10:09 Dose: 3 ml Physical Exam Vital Signs: Vital Signs: Last Vital Signs Temp 98.5 F 10/21/22 08:55 Pulse 87 10/21/22 08:55 Resp 12 10/21/22 08:55 BP 120/69 10/21/22 08:55 Pulse Ox 100 10/21/22 08:55 O2 Del Method 10/21/22 08:55 BMI result Body Mass Index 22.1 Const: General: no acute distress Nutritional Appearance: thin Orientation/consciousness: patient oriented x3 Neck: Neck: Yes full ROM and Yes supple Resp: Effort & Inspection: normal respiratory effort, no audible wheezes, no cough and no respiratory distress GI: Inspection: Yes normal to inspection Skin: General skin exam: no rashes or lesions noted Neuro: General: patient oriented x3 Extrem: Other: Left dorsal forearm with an open wound measuring approximately 1 cm in diameter with dark dried blood at the surface. Wound is open and draining serosanguineous fluid. No abscess is noted at this time. There is significant edema involving the arm and forearm extending to the fingers and light erythema especially around the elbow. Clean dressings were applied. Elbow/forearm/wrist images: 1. Abscess cavity left elbow Results Labs Result diagrams: 10/21/22 01:56 10/21/22 01:56 Labs: Abnormal lab results 10/21/22 10/21/22 10/21/22 Range/Units 01:56 01:56 01:56 WBC 16.4 H (4.8-10.8) X10*3/uL RBC 4.34 L (4.60-5.80) X10*6/uL Hgb 12.3 L (14.0-18.0) g/dl Hct 38.3 L (42.0-52.0) % Plt Count 423 H (160-400) X10*3/uL MPV 8.9 L (9.4-12.4) fL Lymph % (Auto) 19.2 L (20-40) % Abs Immat Gran (auto) 0.07 H (0.00-0.03) X10*3/uL Absolute Neuts (auto) 11.7 H (2.0-8.3) x10*3/uL ESR 32 H (0-15) MM/HR Random Glucose 215 H (60-115) mg/dL C-Reactive Protein 10.20 H (< or = 0.50) mg/dL Short CBC 10/21/22 Range/Units 01:56 WBC 16.4 H (4.8-10.8) X10*3/uL Hgb 12.3 L (14.0-18.0) g/dl Hct 38.3 L (42.0-52.0) % Plt Count 423 H (160-400) X10*3/uL BMP 10/21/22 01:56 Sodium 135 Potassium 3.5 Chloride 98 Carbon Dioxide 25 BUN 12 Creatinine 0.77 Calcium 8.7 Liver Function 10/21/22 Range/Units 01:56 Total Bilirubin 0.3 (0.0-1.0) mg/dL Direct Bilirubin < 0.2 (0.0-0.5) mg/dL AST 22 (5-37) U/L ALT 18 (0-40) U/L Alkaline Phosphatase 90 (39-117) U/L Albumin 4.0 (3.5-5.0) g/dL All other labs normal. Assessment and Plan (1) Abscess of left elbow: Status: Acute (2) Cellulitis: Status: Acute Plan 37-year-old male patient with history of IV drug use presenting with an abscess of the left dorsal forearm, status post incision and drainage in the emergency department earlier today. Wound does appear improved in certainly would benefit from IV antibiotics. The patient apparently wishes to be discharged today. He should keep the arm elevated as much as possible and taking antibiotics as prescribed. He may follow up my office in approximately 1 week for wound check and should keep the wound dressed on a daily basis. Procedures Date of Service Date of Service: 10/21/22
--- NOTE | 2022-10-21 11:43 | PM.DS ---
DS: Providers Provider Date of Service: 10/21/22 Date of admission: 10/21/22 07:05 Primary care physician: Unknown Physician Consults: 10/21/22 07:05 Consult to General Surgery Routine Consulting Provider: Shar Coelho Reason for consultation: Abscess Has provider been notified: No 10/21/22 11:08 Addiction Medicine Routine Consulting Provider: Addiction Covering Reason for consultation: methadone DS: Diagnosis Discharge Diagnosis (1) Cellulitis: Status: Acute (2) Abscess of left elbow: Status: Acute DS: Summary Hospital Course Hospital Course: Patient was admitted for management of abscess and cellulitis in setting of IV heroin use, he was to be treated with IV vancomycin and surgical evaluation, he elected to leave AMA without offering any compelling reason, addiction med has seen him and was working with him to start on meds. He was completly lucid, aler oriented to self, place, and time and understand he is making a decision that may not be in his best interest but is still leaving. He take responsibility for his health and understand complication can happen including even . Surgery has offered to see him in the office, I am sending Doxycyline to the pharmacy for him--he is aware of this. Time Spent with Patient Time attestation: Total time spent providing and/or coordinating discharge services: Discharge coordination time: Greater than 30 minutes Quality: Safe Use of Opioids Does Pt have an Active Cancer Diagnosis on the Problem List?: No Quality: Stroke Does the patient have a stroke diagnosis?: No Physical Exam Vital Signs: Vital Signs: Last Vital Signs Temp 98.5 F 10/21/22 08:55 Pulse 87 10/21/22 08:55 Resp 12 10/21/22 08:55 BP 120/69 10/21/22 08:55 Pulse Ox 100 10/21/22 08:55 O2 Del Method 10/21/22 08:55 BMI result Body Mass Index 22.1 DS: Data Data Completed and Pending Labs on day of discharge: Laboratory Results - last 24 hr 10/21/22 10/21/22 10/21/22 01:56 01:56 01:56 WBC 16.4 H RBC 4.34 L Hgb 12.3 L Hct 38.3 L MCV 88.2 MCH 28.3 MCHC 32.1 RDW 12.7 Plt Count 423 H MPV 8.9 L Immature Gran % (Auto) 0.4 Neut % (Auto) 71.4 Lymph % (Auto) 19.2 L [place] % (Auto) 6.9 Eos % (Auto) 1.5 Baso % (Auto) 0.6 Lymph # (Auto) 3.1 [place] # (Auto) 1.1 Eos # (Auto) 0.3 Baso # (Auto) 0.1 Abs Immat Gran (auto) 0.07 H Absolute Neuts (auto) 11.7 H Absolute Nucleated RBC 0.000 Nucleated RBC % (auto) 0.0 ESR Sodium 135 Potassium 3.5 Chloride 98 Carbon Dioxide 25 Anion Gap 16 BUN 12 Creatinine 0.77 Estim Creat Clear Calc 121.7 Estimated GFR > 60 Random Glucose 215 H Lactic Acid 2.0 Calcium 8.7 Total Bilirubin 0.3 Direct Bilirubin < 0.2 AST 22 ALT 18 Alkaline Phosphatase 90 C-Reactive Protein 10.20 H Total Protein 7.0 Albumin 4.0 COVID-19 (JORGE) COVID-19 [facility] 10/21/22 10/21/22 01:56 04:38 WBC RBC Hgb Hct MCV MCH MCHC RDW Plt Count MPV Immature Gran % (Auto) Neut % (Auto) Lymph % (Auto) [place] % (Auto) Eos % (Auto) Baso % (Auto) Lymph # (Auto) [place] # (Auto) Eos # (Auto) Baso # (Auto) Abs Immat Gran (auto) Absolute Neuts (auto) Absolute Nucleated RBC Nucleated RBC % (auto) ESR 32 H Sodium Potassium Chloride Carbon Dioxide Anion Gap BUN Creatinine Estim Creat Clear Calc Estimated GFR Random Glucose Lactic Acid Calcium Total Bilirubin Direct Bilirubin AST ALT Alkaline Phosphatase C-Reactive Protein Total Protein Albumin COVID-19 (JORGE) Negative COVID-19 Clin Com See Note Discharge Plan Discharge Anticipated Discharge Date/Time: 10/21/22 11:37 Patient Disposition: Left Against Medical Advice Discharge Diagnosis: Left elbow abscess and Cellulitis Referrals: Shar Coelho MD [Physician] - 1 Week (Call for appointment) PhysicianSylvia [Primary Care Provider] - 1 Week Discharge Medications: New doxycycline hyclate 100 mg tablet 100 mg PO BID 7 Days Qty: 14 0RF Discharge Orders: Discharge Order (Routine); Ordered 10/21/22 Ordered By: Frederick Darling Diet: Advance to usual diet Activity on Discharge: As tolerated Care Plan Goals: Full recovery from cellulitis Health Concerns: Substance use desorder cellulitis and abscess of left elbow Plan of Treatment: Take Doxycyline as recommended and follow up with Dr. Coelho in week, You understand you are leaving against medical or doctor's advise and take full responsibility for your health and complications, including the possibility of Assessment: as above
--- NOTE | 2022-10-21 11:46 | MHC.RECOVRN ---
Met with pt in 453 to discuss substance use and assess for withdrawal symptoms. Upon entering pts room, pt in bed, restless and diaphoretic, reporting desire to discharge. Pt reports heroin use, 5 bags daily, IN, as well as crack, INH, a lot. Pt educated regarding medications available to address withdrawal symptoms. Pt declines medications at this time and would like to discharge and return to the hospital at a later time. Pt respectful and grateful for options. Discussed with RN.
--- NOTE | 2022-10-21 12:40 | PHA.PROG ---
"Admission Date/Time: October 21, 2022 07:05 Indication: Abscess Weight in k.98 kg Adjusted body weight in K.2 kg [place] body weight in K.1 kg Obesity Dosing Indication % IBW: N/A Serum Creatinine - Last 168 Hours 10/21/22 01:56 Creatinine 0.77 Estimated CrCl and GFR - Last 168 Hours 10/21/22 01:56 Estim Creat Clear Calc 121.7 Estimated GFR > 60 Vancomycin Loading Dose: 1500 mg Current Vancomycin Dosing Regimen: 1250 mg Q12H Date and Time for next Vancomycin Level to be drawn: 10/22 @ 1500 Pharmacist Comments on Vancomycin Plan: Patient received loading dose overnight in the ER 06/20 @ 0433. Maintenance dose scheduled to start 06/20 @ 1700. Expected AUC 548 with a trough of 15.8. Trough to be drawn prior to 4th dose Pharmacy to monitor renal function daily. Nica Iyer, Honoriod Vancomycin dosing will take advantage of [employer] as a clinical decision support tool that uses Bayesian modeling to calculate individual patient's pharmacokinetic parameters and forecast the patient's drug concentration time course with the target goal AUC 24 range of 400 - 600 mg/L/hr."
== END 2022-10-21 13:15 | disposition left against medical advice (07) ==
LOC: HO.ED 03:17 → HO.EDOVER 07:26 → HO.IMC 07:37
PROVIDERS: Admitting Provider Internal Medicine; Emergency Provider Emergency Medicine; Visit Provider Internal Medicine
DX: F19.10 Other psychoactive substance abuse, uncomplicated (principal); L03.114 Cellulitis of left upper limb; L02.414 Cutaneous abscess of left upper limb; F14.10 Cocaine abuse, uncomplicated; F17.210 Nicotine dependence, cigarettes, uncomplicated; Z20.822 Contact with and (suspected) exposure to COVID-19
CPT/HCPCS: 36415; 73201; 80053; 82248; 83605; 85025; 85652; 86140; 87040; 87070; 87077; 87186; 87205; 87635; 96365; 96366; 96367; 99219; 99285; J2543; J3370; Q9967

== ENCOUNTER 2022-10-29 04:42 | Emergency (ER) | payer MEDICARE, MEDICAID, SELFPAY ==
--- NOTE | ~2022-10-29 | XR_ITS ---
EXAMINATION: XR ELBOW, LEFT CLINICAL INFORMATION: Pain COMPARISON: 10/21/2022 TECHNIQUE: AP, lateral, and oblique views of the left elbow. FINDINGS: Osseous alignment is anatomic. No acute fracture is seen. Dorsal soft tissue swelling is noted overlying the olecranon. Redemonstrated BB adjacent to the proximal radius. XR/XR elbow LT 2V IMPRESSION: No acute osseous findings. Dorsal soft tissue swelling overlying the olecranon.
[2022-10-29 04:47] VITALS: BP 143/111; PULSE 76; RESP 20; TEMP 36.1; O2SAT 98; BMI 25.8
[2022-10-29 05:31] VITALS: BP 163/98; PULSE 70
--- NOTE | 2022-10-29 06:46 | ED.WOUNDLAC ---
HPI - Wound/Laceration General Chief Complaint: Wound/Laceration Stated Complaint: wound infection on arm Time Seen by Provider: 10/29/22 06:42 Source: patient Mode of arrival: ambulatory History of Present Illness HPI narrative: 37-year-old male with no significant past medical history presents to the emergency department today complaining of left elbow pain. Patient states he noticed a scab on the elbow approximately a week and a half ago. Patient states he picked it and became infected. Was given antibiotics, although he does not remember where he was seen or the name of the antibiotic. Presents to the emergency department today complaining of continued pain and swelling of the left elbow. States it does seem better, but is not gone away. Denies fevers, shaking chills. Review of the patient's chart reveals that the patient was actually here on the 21 of October. He was given IV antibiotics here in the emergency department, and admitted to the hospital. He was seen in consultation by surgery, but left against medical advice. Patient was given a prescription for doxycycline on discharge. Onset (ago): week(s) Extremity Location: left: elbow Patient tetanus UTD: Yes Context: accidental Associated symptoms: pain Related Data Previous Rx's Medication Instructions Recorded doxycycline hyclate 100 mg tablet 100 mg PO BID 7 days #14 tabs 10/21/22 Allergies Allergy/AdvReac Type Severity Reaction Status Date / Time acetaminophen [ACETAMINOPHEN] Allergy Mild HIVES Verified 10/29/22 04:51 Review of Systems Constitutional: Constitutional: Reports as per HPI, Denies chills and Denies fever(s) Eyes: Eyes: Denies blurry vision and Denies diplopia ENT: Reports system reviewed and no additional complaints, except as documented Cardiovascular: Cardiovascular: Reports no additional cardiovascular complaints and Denies dyspnea Respiratory: Respiratory: Denies cough and Denies dyspnea Musculoskeletal: Musculoskeletal: Reports no additional musculoskeletal complaints Integumentary/Breasts: Skin/Breast: Reports as per HPI and Reports wounds Neurologic: Reports system reviewed and no additional complaints, except as documented and Denies confusion Psychiatric: Psychiatric: Denies confusion PMFSH Past Medical History Medical History Drug abuse Heroin abuse Surgical History Surgical history unknown Social History Social History Household Members: Other Household Members Other:: Homeless Housing: Homeless Do you presently have visiting nurse or other home services: No Unable to assess alcohol history related to: Unable to respond Alcohol intake: never Patient Tobacco Use Status: Current everyday Tobacco user Tobacco use type: Cigarette Substance Use Type: Heroin Advance Directives: No service: No Physical Exam Vital Signs: Vital Signs: Last Vital Signs Temp 96.9 F 10/29/22 04:47 Pulse 70 10/29/22 05:31 Resp 20 10/29/22 04:47 BP 163/98 H 10/29/22 05:31 Pulse Ox 98 10/29/22 04:47 O2 Del Method 10/29/22 04:47 BMI result Body Mass Index 25.8 Vital signs noted to be normal. Afebrile Const: General: cooperative and no acute distress; No combative, confusion or intoxicated appearing Nutritional Appearance: average body habitus Orientation/consciousness: patient oriented x3 and No confusion Resp: Effort & Inspection: normal respiratory effort, no cough and respiratory effort not decreased Cardio: Rate: regular rate Rhythm: regular rhythm Skin: Other: There is an area of redness in the area of the olecranon bursa measuring approximately 3.5 cm diameter. Comparison with pictures which are in the chart from previous visit, the wound and area appear to be significantly improved. There is no fluctuance and mild to moderate tenderness of the area. There is no active discharge. Neuro: General: patient oriented x3 and No confusion Course Reevaluation(s) Reevaluation #1: Notified that patient has eloped from the ED. Did not notify me that he was leaving. The RN was able to remove the IV prior to elopement. Time: 10:31 Medications Administered Discontinued Medications Generic Name Dose Route Start Last Admin Trade Name Freq PRN Reason Stop Dose Admin Vancomycin HCl 1,000 mg/ 270 mls @ 270 mls/hr 10/29/22 06:57 10/29/22 07:19 Sodium Chloride IV 10/29/22 07:56 270 mls/hr ONCE ONE Administration MDM - Wound/Laceration MDM Narrative Medical decision making narrative: 37-year-old male with cellulitis of the left elbow in the olecranon bursa area. Cultures were positive for MRSA previously. The patient did receive some antibiotics here in the emergency department, and the plan was to discharge with oral antibiotics, however the patient decided to elope prior to formal discharge. Antibiotics were not prescribed. Medical Records Attestation: I reviewed the patient's medical records. Medical records narrative: Wound culture from the October 21 reveals MRSA. Discharge Plan Discharge Clinical Impression: Abscess, Cellulitis Patient Disposition: Elopement Prescriptions: No Action doxycycline hyclate 100 mg tablet 100 mg PO BID 7 Days Qty: 14 0RF Interventions: ED Discharge Assessment Last Done: 10/29/22 10:33 Discharge Date/Time: 10/29/22 10:34
[2022-10-29] MEDS: vancomycin HCL 1,000 MG in 0.9 % Sodium Chloride 250 ML 270 MG IV (07:19)
--- NOTE | 2022-10-29 10:34 | PC.NURSE ---
Pt states he is feeling ready to go after toast and naila emily. Refusing to stay, IV removed
== END 2022-10-29 10:34 | disposition left against medical advice (07) ==
PROVIDERS: Emergency Provider Emergency Medicine
DX: L03.114 Cellulitis of left upper limb (principal); L02.414 Cutaneous abscess of left upper limb; F19.10 Other psychoactive substance abuse, uncomplicated; F17.210 Nicotine dependence, cigarettes, uncomplicated
CPT/HCPCS: 73070; 99283; 99284; J3370

== ENCOUNTER 2022-11-01 19:42 | Emergency (ER) | payer MEDICARE, MEDICAID, SELFPAY ==
--- NOTE | ~2022-11-01 | XR_ITS ---
EXAMINATION: XR ELBOW, LEFT CLINICAL INFORMATION: Infection COMPARISON: 10/29/2022 TECHNIQUE: AP, lateral, and oblique views of the left elbow. FINDINGS: No joint effusion. No acute osseous abnormality. Mild degenerative changes at the medial aspect with small marginal osteophytes. Posterior soft tissue swelling, possibly olecranon bursitis. No underlying periostitis or cortical erosion. There is a metallic the BB soft tissues lateral to the proximal radius. XR/XR elbow LT 2V IMPRESSION: 1. Posterior soft tissue swelling, possibly olecranon bursitis. No acute osseous abnormality. No joint effusion. Mild degenerative change.
[2022-11-01 19:43] VITALS: BP 171/84; PULSE 86; RESP 17; TEMP 36.8; O2SAT 98; BMI 23.5
--- NOTE | 2022-11-01 19:45 | ED_ITS ---
HPI - Skin/Abscess/Foreign Bdy General Chief complaint: Wound/Laceration <Josefa Sifuentes NP - Last Filed: 11/01/22 19:50> Stated complaint: infection on L elbow <Josefa Sifuentes NP - Last Filed: 11/01/22 19:50> Time Seen by Provider: 11/01/22 21:29 <Josefa Sifuentes NP - Last Filed: 11/01/22 19:50> Source: patient <WINSTON Sykes - Last Filed: 11/02/22 00:25> Mode of arrival: ambulatory <WINSTON Sykes - Last Filed: 11/02/22 00:25> Limitations: no limitations <WINSTON Sykes - Last Filed: 11/02/22 00:25> History of Present Illness HPI narrative: This is a 37-year-old male past medical history significant for substance use disorder, presents to the emergency department with redness to left elbow, that has not gone away tells me that redness has been present for weeks in the started around September.? Tells me he has been on antibiotics however he is not taking them as prescribed.? He tells me it looks much better than before.? Before he was to have pain with range of motion he tells me he is no longer having that however the redness is not going away.? He tells me his left elbow is red and warm to the touch.? Patient is also seeking detox for heroin and crack cocaine last use today.? Appears to be under the influence upon my history taking.? He denies fevers, chills, numbness, tingling, chest pain, shortness of breath, nausea, vomiting, abdominal pain, headache, vision changes in dizziness.? Patient up-to-date on tetanus shot.? Unknown if he has history of MRSA per patient.? He tells me that he typically snorts drugs however does not use them intravenously.? And never has. <WINSTON Sykes - Last Filed: 11/02/22 00:25> Related Data Home medications: Previous Rx's Medication Instructions Recorded doxycycline hyclate 100 mg tablet 100 mg PO BID 7 days #14 tabs 10/21/22 cephalexin 500 mg tablet 500 mg PO Q6H 10 days #40 tabs 11/01/22 doxycycline hyclate 100 mg capsule 100 mg PO BID 10 days #20 caps 11/01/22 <Josefa Sifuentes NP - Last Filed: 11/01/22 19:50> Allergies/Adverse reactions: Allergies Allergy/AdvReac Type Severity Reaction Status Date / Time acetaminophen [ACETAMINOPHEN] Allergy Mild HIVES Verified 11/01/22 19:43 <Josefa Sifuentes NP - Last Filed: 11/01/22 19:50> Review of Systems Review of Systems: Constitutional : No Weight loss, No Fever, No Chills, No Fatigue, No Malaise ENT/Mouth : No sore throat, No Rhinorrhea Eyes: No Eye Pain, No Swelling, No Redness Cardiovascular : No Chest Pain, No SOB, No Dyspnea on Exertion, No Orthopnea, No Edema, No Palpitations Respiratory : No Cough, No Sputum, No Wheezing Gastrointestinal : No Nausea, No Vomiting, No Diarrhea, No Constipation, No abdominal Pain, No Hematochezia, No Melena Genitourinary : No Dysuria, No Urinary Frequency, No Hematuria, Musculoskeletal : + joint pain, No Myalgias, No Joint Swelling Skin : No Skin Lesions, No rash Neuro : No Weakness, No Numbness, No Dizziness, No Headache Psych : No Anxiety/Panic, No Depression <WINSTON Sykes - Last Filed: 11/02/22 00:25> Yes all other systems are reviewed and are negative <WINSTON Sykes - Last Filed: 11/02/22 00:25> [facility] Past Medical History Attestation statement: The following information was validated with the patient. <WINSTON Sykes - Last Filed: 11/02/22 00:25> Source: old records reviewed and nursing notes reviewed <WINSTON Sykes - Last Filed: 11/02/22 00:25> Medical History: Medical History Drug abuse Heroin abuse <Josefa Sifuentes NP - Last Filed: 11/01/22 19:50> Surgical History: Surgical History Surgical history unknown <Josefa Sifuentes NP - Last Filed: 11/01/22 19:50> Social History Social History: Social History Household Members: Other Household Members Other:: Homeless Housing: Homeless Do you presently have visiting nurse or other home services: No Unable to assess alcohol history related to: Unable to respond Alcohol intake: never Patient Tobacco Use Status: Current everyday Tobacco user Tobacco use type: Cigarette Substance Use Type: Heroin Advance Directives: No Advance Directives Information Provided: Yes service: No <Josefa Sifuentes NP - Last Filed: 11/01/22 19:50> Physical Exam Vital Signs: Vital Signs: Last Vital Signs Temp 98.2 F 11/01/22 19:43 Pulse 86 11/01/22 19:43 Resp 17 11/01/22 19:43 BP 171/84 H 11/01/22 19:43 Pulse Ox 98 11/01/22 19:43 O2 Del Method 11/01/22 19:43 BMI result Body Mass Index 23.5 <Josefa Sifuentes NP - Last Filed: 11/01/22 19:50> Vital Signs: Last Vital Signs Temp 98.2 F 11/01/22 19:43 Pulse 86 11/01/22 19:43 Resp 17 11/01/22 19:43 BP 171/84 H 11/01/22 19:43 Pulse Ox 98 11/01/22 19:43 O2 Del Method 11/01/22 19:43 BMI result Body Mass Index 23.5 vss <WINSTON Sykes - Last Filed: 11/02/22 00:25> Vital signs stable.? Appearance: Alert.? Oriented X3.? No acute distress.? Patient appears to be under the influence of drugs.? Slightly drowsy. Head:? Normocephalic, atraumatic, no step-offs or deformities Eyes: Pupils equal, round and reactive to light.? ENT: Pharynx normal.? Neck: Normal inspection.? Neck supple.? CVS: Normal heart rate and rhythm.? Pulses normal.? Respiratory: No respiratory distress.? Breath sounds normal.? Abdomen: Soft and nontender.? Skin: Skin warm and dry.? Normal skin color.? Normal skin turgor.? Extremities: No lower extremity edema.? No calf ttp.? 5/5 strength to bilateral upper and lower extremities full range of motion to bilateral elbows.? Left elbow with slight erythema and warmth, unable to identify any swelling to the left elbow.? Range of motion is pain-free to bilateral elbows.? No streaking to left upper extremity.? 2+ radial pulses equal bilateral.? Normal sensation to bilateral upper extremities.? Capillary refill less than 2 seconds. Neuro: Oriented X 3.? No motor deficit.? No sensory deficit. CN 2-12 intact <WINSTON Sykes - Last Filed: 11/02/22 00:25> Course Course Course Narrative: This is a rapid medical exam. Deferred additional HPI, ROS, PE to primary provider. This is a 37-year-old male who was seen here October 21 for left elbow cellulitis. He was admitted to the hospital for IV antibiotics but left against medical advice. He was discharged with doxycycline for 10 days. Patient returned on October 29 but eloped from the department before disposition was made. He returns today for continued pain the left elbow. He did complete the doxycycline. No fevers or chills. Patient reports he is sniffing cocaine and heroin daily and is looking for detox resources. Over the left elbow there is a healing wound. There is full range of motion of the elbow. There is some pain on palpation. On review of previous images this appears much improved from previous. Will obtain labs, tox screen. Patient would like to speak to organ recovery coordinator about detox. VSS <Josefa Sifuentes NP - Last Filed: 11/01/22 19:50> Reevaluation(s) Reevaluation #1: CBC within normal limits, no leukocytosis, normocytic anemia noted, chemistry with no acute findings requiring intervention.? Ethanol negative.? I ordered blood cultures and lactic acid. <WINSTON Sykes - Last Filed: 11/02/22 00:25> Time: 23:13 <WINSTON Sykes - Last Filed: 11/02/22 00:25> Reevaluation #2: Lactic acid negative.? At this time patient medically cleared.? Patient will be placed in physician observation to allow more time to be evaluated by the care team for a substance use disorder evaluation.? At time observation was started patient common cooperative no acute distress.? I ordered doxycycline and Keflex scheduled for left elbow cellulitis. <WINSTON Sykes - Last Filed: 11/02/22 00:25> Time: 00:22 <WINSTON Sykes - Last Filed: 11/02/22 00:25> Medications Administered Discontinued Medications Generic Name Dose Route Start Last Admin Trade Name Freq PRN Reason Stop Dose Admin Cephalexin HCl 500 mg 11/01/22 23:14 11/01/22 23:56 Cephalexin 500 Mg Capsule PO 11/01/22 23:15 500 mg ONCE ONE Administration Doxycycline Monohydrate 100 mg 11/01/22 23:14 11/01/22 23:56 Doxycycline Monohydrate 100 Mg Capsule PO 11/01/22 23:15 100 mg ONCE ONE Administration <Josefa Sifuentes NP - Last Filed: 11/01/22 19:50> Medications Administered Discontinued Medications Generic Name Dose Route Start Last Admin Trade Name Freq PRN Reason Stop Dose Admin Cephalexin HCl 500 mg 11/01/22 23:14 11/01/22 23:56 Cephalexin 500 Mg Capsule PO 11/01/22 23:15 500 mg ONCE ONE Administration Doxycycline Monohydrate 100 mg 11/01/22 23:14 11/01/22 23:56 Doxycycline Monohydrate 100 Mg Capsule PO 11/01/22 23:15 100 mg ONCE ONE Administration <WINSTON Sykes - Last Filed: 11/02/22 00:25> MDM - Skin/Abscess/Foreign Bdy MDM Narrative Medical decision making narrative: [id number] 37-year-old male presents with left elbow pain as been going on for few weeks, patient not taking antibiotics as prescribed.? Also seeking detox from crack and heroin.? Last use today.? Denies SI and HI. Physical examination significant for? No lower extremity edema.? No calf ttp.? 5/5 strength to bilateral upper and lower extremities full range of motion to bilateral elbows.? Left elbow with slight erythema and warmth, unable to identify any swelling to the left elbow.? Range of motion is pain-free to bilateral elbows.? No streaking to left upper extremity.? 2+ radial pulses equal bilateral.? Normal sensation to bilateral upper extremities.? Capillary refill less than 2 seconds. Concerns for superficial cellulitis.? Other differentials include bursitis.? I do not suspect septic joint or septic bursitis. Plan at this time labs, imaging.? Will put in a behavioral health evaluation. <WINSTON Sykes - Last Filed: 11/02/22 00:25> Medical Records Attestation: I reviewed the patient's medical records. <WINSTON Sykes - Last Filed: 11/02/22 00:25> Lab Data Attestation: I reviewed the patient's lab results. <WINSTON Sykes - Last Filed: 11/02/22 00:25> Result diagrams: : 11/01/22 19:58 11/01/22 19:58 <Josefa Sifuentes NP - Last Filed: 11/01/22 19:50> Labs: Lab Results 11/01/22 11/01/22 11/01/22 Range/Units 19:58 19:58 19:58 WBC 10.6 (4.8-10.8) X10*3/uL RBC 4.66 (4.60-5.80) X10*6/uL Hgb 13.1 L (14.0-18.0) g/dl Hct 40.3 L (42.0-52.0) % MCV 86.5 (80.0-98.0) fL MCH 28.1 (27.0-33.0) pg MCHC 32.5 (31.0-36.0) g/dl RDW 12.9 (11.0-16.0) % Plt Count 510 H (160-400) X10*3/uL MPV 8.5 L (9.4-12.4) fL Immature Gran % (Auto) 0.3 (0.0-0.4) % Neut % (Auto) 55.9 (45-73) % Lymph % (Auto) 32.5 (20-40) % [place] % (Auto) 8.9 (2-11) % Eos % (Auto) 1.9 (0-4) % Baso % (Auto) 0.5 (0-2) % Lymph # (Auto) 3.4 (1.2-4.9) X10*3/uL [place] # (Auto) 0.9 (0.1-1.2) X10*3/uL Eos # (Auto) 0.2 (0.0-0.4) X10*3/uL Baso # (Auto) 0.1 (0.0-0.2) X10*3/uL Abs Immat Gran (auto) 0.03 (0.00-0.03) X10*3/uL Absolute Neuts (auto) 5.9 (2.0-8.3) x10*3/uL Absolute Nucleated RBC 0.000 (0.0-0.012) X10*3/uL Nucleated RBC % (auto) 0.0 (0.0-0.2) /100WBC Sodium 139 (135-145) mmol/L Potassium 3.9 (3.3-5.1) mmol/L Chloride 98 (96-108) mmol/L Carbon Dioxide 27 (22-29) mmol/L Anion Gap 18 (12-20) BUN 17 H (9-16) mg/dL Creatinine 0.83 (0.5-1.4) mg/dL Estim Creat Clear Calc 115.0 Estimated GFR > 60 Random Glucose 103 (60-115) mg/dL Lactic Acid (0.5-2.0) mmol/L Calcium 9.0 (8.4-10.2) mg/dL Ethyl Alcohol < 10 mg/dL 11/01/22 Range/Units 23:55 WBC (4.8-10.8) X10*3/uL RBC (4.60-5.80) X10*6/uL Hgb (14.0-18.0) g/dl Hct (42.0-52.0) % MCV (80.0-98.0) fL MCH (27.0-33.0) pg MCHC (31.0-36.0) g/dl RDW (11.0-16.0) % Plt Count (160-400) X10*3/uL MPV (9.4-12.4) fL Immature Gran % (Auto) (0.0-0.4) % Neut % (Auto) (45-73) % Lymph % (Auto) (20-40) % [place] % (Auto) (2-11) % Eos % (Auto) (0-4) % Baso % (Auto) (0-2) % Lymph # (Auto) (1.2-4.9) X10*3/uL [place] # (Auto) (0.1-1.2) X10*3/uL Eos # (Auto) (0.0-0.4) X10*3/uL Baso # (Auto) (0.0-0.2) X10*3/uL Abs Immat Gran (auto) (0.00-0.03) X10*3/uL Absolute Neuts (auto) (2.0-8.3) x10*3/uL Absolute Nucleated RBC (0.0-0.012) X10*3/uL Nucleated RBC % (auto) (0.0-0.2) /100WBC Sodium (135-145) mmol/L Potassium (3.3-5.1) mmol/L Chloride (96-108) mmol/L Carbon Dioxide (22-29) mmol/L Anion Gap (12-20) BUN (9-16) mg/dL Creatinine (0.5-1.4) mg/dL Estim Creat Clear Calc Estimated GFR Random Glucose (60-115) mg/dL Lactic Acid 0.8 (0.5-2.0) mmol/L Calcium (8.4-10.2) mg/dL Ethyl Alcohol mg/dL <Josefa Sifuentes, [employer] - Last Filed: 11/01/22 19:50> Lab Results 11/01/22 11/01/22 11/01/22 Range/Units 19:58 19:58 19:58 WBC 10.6 (4.8-10.8) X10*3/uL RBC 4.66 (4.60-5.80) X10*6/uL Hgb 13.1 L (14.0-18.0) g/dl Hct 40.3 L (42.0-52.0) % MCV 86.5 (80.0-98.0) fL MCH 28.1 (27.0-33.0) pg MCHC 32.5 (31.0-36.0) g/dl RDW 12.9 (11.0-16.0) % Plt Count 510 H (160-400) X10*3/uL MPV 8.5 L (9.4-12.4) fL Immature Gran % (Auto) 0.3 (0.0-0.4) % Neut % (Auto) 55.9 (45-73) % Lymph % (Auto) 32.5 (20-40) % [place] % (Auto) 8.9 (2-11) % Eos % (Auto) 1.9 (0-4) % Baso % (Auto) 0.5 (0-2) % Lymph # (Auto) 3.4 (1.2-4.9) X10*3/uL [place] # (Auto) 0.9 (0.1-1.2) X10*3/uL Eos # (Auto) 0.2 (0.0-0.4) X10*3/uL Baso # (Auto) 0.1 (0.0-0.2) X10*3/uL Abs Immat Gran (auto) 0.03 (0.00-0.03) X10*3/uL Absolute Neuts (auto) 5.9 (2.0-8.3) x10*3/uL Absolute Nucleated RBC 0.000 (0.0-0.012) X10*3/uL Nucleated RBC % (auto) 0.0 (0.0-0.2) /100WBC Sodium 139 (135-145) mmol/L Potassium 3.9 (3.3-5.1) mmol/L Chloride 98 (96-108) mmol/L Carbon Dioxide 27 (22-29) mmol/L Anion Gap 18 (12-20) BUN 17 H (9-16) mg/dL Creatinine 0.83 (0.5-1.4) mg/dL Estim Creat Clear Calc 115.0 Estimated GFR > 60 Random Glucose 103 (60-115) mg/dL Lactic Acid (0.5-2.0) mmol/L Calcium 9.0 (8.4-10.2) mg/dL Ethyl Alcohol < 10 mg/dL 11/01/22 Range/Units 23:55 WBC (4.8-10.8) X10*3/uL RBC (4.60-5.80) X10*6/uL Hgb (14.0-18.0) g/dl Hct (42.0-52.0) % MCV (80.0-98.0) fL MCH (27.0-33.0) pg MCHC (31.0-36.0) g/dl RDW (11.0-16.0) % Plt Count (160-400) X10*3/uL MPV (9.4-12.4) fL Immature Gran % (Auto) (0.0-0.4) % Neut % (Auto) (45-73) % Lymph % (Auto) (20-40) % [place] % (Auto) (2-11) % Eos % (Auto) (0-4) % Baso % (Auto) (0-2) % Lymph # (Auto) (1.2-4.9) X10*3/uL [place] # (Auto) (0.1-1.2) X10*3/uL Eos # (Auto) (0.0-0.4) X10*3/uL Baso # (Auto) (0.0-0.2) X10*3/uL Abs Immat Gran (auto) (0.00-0.03) X10*3/uL Absolute Neuts (auto) (2.0-8.3) x10*3/uL Absolute Nucleated RBC (0.0-0.012) X10*3/uL Nucleated RBC % (auto) (0.0-0.2) /100WBC Sodium (135-145) mmol/L Potassium (3.3-5.1) mmol/L Chloride (96-108) mmol/L Carbon Dioxide (22-29) mmol/L Anion Gap (12-20) BUN (9-16) mg/dL Creatinine (0.5-1.4) mg/dL Estim Creat Clear Calc Estimated GFR Random Glucose (60-115) mg/dL Lactic Acid 0.8 (0.5-2.0) mmol/L Calcium (8.4-10.2) mg/dL Ethyl Alcohol mg/dL <WINSTON Sykes - Last Filed: 11/02/22 00:25> Critical Care Time Critical Care Time Critical Care Time: No <WINSTON Sykes - Last Filed: 11/02/22 00:25> Discharge Plan Discharge Clinical Impression: Cellulitis, Left elbow pain, Polysubstance abuse <Josefa Sifuentes NP - Last Filed: 11/01/22 19:50> Patient Disposition: Still a Patient <Josefa Sifuentes NP - Last Filed: 11/01/22 19:50> Prescriptions: New cephalexin 500 mg tablet 500 mg PO Q6H 10 Days Qty: 40 0RF doxycycline hyclate 100 mg capsule 100 mg PO BID 10 Days Qty: 20 0RF No Action doxycycline hyclate 100 mg tablet 100 mg PO BID 7 Days Qty: 14 0RF <Josefa Sifuentes NP - Last Filed: 11/01/22 19:50>
[2022-11-01 20:03] LABS: MANUAL DIFF FLAG NO
[2022-11-01 20:04] LABS: Basophils Absolute Auto 0.1 X10*3/uL (0.0-0.2); Basophils Percent Auto 0.5 % (0-2); Eosinophils Absolute Auto 0.2 X10*3/uL (0.0-0.4); Eosinophils Percent Auto 1.9 % (0-4); Hematocrit 40.3 % (42.0-52.0); Hemoglobin 13.1 g/dl (14.0-18.0); Imm Gran Abs Auto 0.03 X10*3/uL (0.00-0.03); Imm Gran Pct Auto 0.3 % (0.0-0.4); Lymphocytes Absolute Auto 3.4 X10*3/uL (1.2-4.9); Lymphocytes Percent Auto 32.5 % (20-40); Mean Corpuscular HGB Conc 32.5 g/dl (31.0-36.0); Mean Corpuscular Hemoglobin 28.1 pg (27.0-33.0); Mean Corpuscular Volume 86.5 fL (80.0-98.0); Mean Platelet Volume 8.5 fL (9.4-12.4); Monocytes Absolute Auto 0.9 X10*3/uL (0.1-1.2); Monocytes Percent Auto 8.9 % (2-11); Neutrophils Absolute Auto 5.9 x10*3/uL (2.0-8.3); Neutrophils Percent Auto 55.9 % (45-73); Platelet Count 510 X10*3/uL (160-400); Red Blood Count 4.66 X10*6/uL (4.60-5.80); Red Cell Distribution Width 12.9 % (11.0-16.0); White Blood Count 10.6 X10*3/uL (4.8-10.8)
[2022-11-01 20:18] LABS: Ethanol < 10 mg/dL
[2022-11-01 20:19] LABS: Anion Gap 18 (12-20); Blood Urea Nitrogen 17 mg/dL (9-16); Carbon Dioxide 27 mmol/L (22-29); Chloride 98 mmol/L (96-108); Estimated Glomerular Filt Rate > 60; Glucose Random 103 mg/dL (60-115); Potassium 3.9 mmol/L (3.3-5.1); Sodium 139 mmol/L (135-145)
--- NOTE | 2022-11-01 23:07 | ED_ITS ---
HPI - Wound/Laceration General Chief Complaint: Wound/Laceration Stated Complaint: infection on L elbow Time Seen by Provider: 11/01/22 21:29 Source: patient Mode of arrival: ambulatory Limitations: no limitations History of Present Illness HPI narrative: This is a 37-year-old male past medical history significant for substance use disorder, presents to the emergency department with redness to left elbow, that has not gone away tells me that redness has been present for weeks in the started around September. Tells me he has been on antibiotics however he is not taking them as prescribed. He tells me it looks much better than before. Before he was to have pain with range of motion he tells me he is no longer having that however the redness is not going away. He tells me his left elbow is red and warm to the touch. Patient is also seeking detox for heroin and crack cocaine last use today. Appears to be under the influence upon my history taking. He denies fevers, chills, numbness, tingling, chest pain, shortness of breath, nausea, vomiting, abdominal pain, headache, vision changes in dizziness. Patient up-to-date on tetanus shot. Unknown if he has history of MRSA per patient. He tells me that he typically snorts drugs however does not use them intravenously. And never has. Related Data Previous Rx's Medication Instructions Recorded doxycycline hyclate 100 mg tablet 100 mg PO BID 7 days #14 tabs 10/21/22 cephalexin 500 mg tablet 500 mg PO Q6H 10 days #40 tabs 11/01/22 doxycycline hyclate 100 mg capsule 100 mg PO BID 10 days #20 caps 11/01/22 Allergies Allergy/AdvReac Type Severity Reaction Status Date / Time acetaminophen [ACETAMINOPHEN] Allergy Mild HIVES Verified 11/01/22 19:43 Review of Systems Review of Systems: Constitutional : No Weight loss, No Fever, No Chills, No Fatigue, No Malaise ENT/Mouth : No sore throat, No Rhinorrhea Eyes: No Eye Pain, No Swelling, No Redness Cardiovascular : No Chest Pain, No SOB, No Dyspnea on Exertion, No Orthopnea, No Edema, No Palpitations Respiratory : No Cough, No Sputum, No Wheezing Gastrointestinal : No Nausea, No Vomiting, No Diarrhea, No Constipation, No abdominal Pain, No Hematochezia, No Melena Genitourinary : No Dysuria, No Urinary Frequency, No Hematuria, Musculoskeletal : + joint pain, No Myalgias, No Joint Swelling Skin : No Skin Lesions, No rash Neuro : No Weakness, No Numbness, No Dizziness, No Headache Psych : No Anxiety/Panic, No Depression All other systems reviewed and are negative Yes all other systems are reviewed and are negative [facility], [facility] Past Medical History Attestation statement: The following information was validated with the patient. Source: old records reviewed and nursing notes reviewed Medical History Drug abuse Heroin abuse Surgical History Surgical history unknown Social History Social History Household Members: Other Household Members Other:: Homeless Housing: Homeless Do you presently have visiting nurse or other home services: No Unable to assess alcohol history related to: Unable to respond Alcohol intake: never Patient Tobacco Use Status: Current everyday Tobacco user Tobacco use type: Cigarette Substance Use Type: Heroin Advance Directives: No Advance Directives Information Provided: Yes service: No Physical Exam Vital Signs: Vital Signs: Last Vital Signs Temp 98.2 F 11/01/22 19:43 Pulse 86 11/01/22 19:43 Resp 17 11/01/22 19:43 BP 171/84 H 11/01/22 19:43 Pulse Ox 98 11/01/22 19:43 O2 Del Method 11/01/22 19:43 BMI result Body Mass Index 23.5 Vital signs stable. Appearance: Alert.? Oriented X3.? No acute distress.? Patient appears to be under the influence of drugs. Slightly drowsy. Head: Normocephalic, atraumatic, no step-offs or deformities Eyes: Pupils equal, round and reactive to light.? ENT: Pharynx normal.? Neck: Normal inspection.? Neck supple.? CVS: Normal heart rate and rhythm.? Pulses normal.? Respiratory: No respiratory distress.? Breath sounds normal.? Abdomen: Soft and nontender.? Skin: Skin warm and dry.? Normal skin color.? Normal skin turgor.? Extremities: No lower extremity edema.? No calf ttp. 5/5 strength to bilateral upper and lower extremities full range of motion to bilateral elbows. Left elbow with slight erythema and warmth, unable to identify any swelling to the left elbow. Range of motion is pain-free to bilateral elbows. No streaking to left upper extremity. 2+ radial pulses equal bilateral. Normal sensation to bilateral upper extremities. Capillary refill less than 2 seconds. Neuro: Oriented X 3.? No motor deficit.? No sensory deficit. CN 2-12 intact Course Reevaluation(s) Reevaluation #1: CBC within normal limits, no leukocytosis, normocytic anemia noted, chemistry with no acute findings requiring intervention. Ethanol negative. I ordered blood cultures and lactic acid. Time: 23:13 Reevaluation #2: Lactic acid negative. At this time patient medically cleared. Patient will be placed in physician observation to allow more time to be evaluated by the av emerson for a substance use disorder evaluation. At time observation was started patient common cooperative no acute distress. I ordered doxycycline and Keflex scheduled for left elbow cellulitis. Time: 00:22 Medications Administered Discontinued Medications Generic Name Dose Route Start Last Admin Trade Name Pravinq PRN Reason Stop Dose Admin Cephalexin HCl 500 mg 11/01/22 23:14 11/01/22 23:56 Cephalexin 500 Mg Capsule PO 11/01/22 23:15 500 mg ONCE ONE Administration Doxycycline Monohydrate 100 mg 11/01/22 23:14 11/01/22 23:56 Doxycycline Monohydrate 100 Mg Capsule PO 11/01/22 23:15 100 mg ONCE ONE Administration MDM - Wound/Laceration MDM Narrative Medical decision making narrative: [id number] 37-year-old male presents with left elbow pain as been going on for few weeks, patient not taking antibiotics as prescribed. Also seeking detox from crack and heroin. Last use today. Denies SI and HI. Physical examination significant for No lower extremity edema.? No calf ttp. 5/5 strength to bilateral upper and lower extremities full range of motion to bilateral elbows. Left elbow with slight erythema and warmth, unable to identify any swelling to the left elbow. Range of motion is pain-free to bilateral elbows. No streaking to left upper extremity. 2+ radial pulses equal bilateral. Normal sensation to bilateral upper extremities. Capillary refill less than 2 seconds. Concerns for superficial cellulitis. Other differentials include bursitis. I do not suspect septic joint or septic bursitis. Plan at this time labs, imaging. Will put in a behavioral health evaluation. Medical Records Attestation: I reviewed the patient's medical records. Lab Data Attestation: I reviewed the patient's lab results. Result diagrams: 11/01/22 19:58 11/01/22 19:58 Labs: Lab Results 11/01/22 11/01/22 11/01/22 Range/Units 19:58 19:58 19:58 WBC 10.6 (4.8-10.8) X10*3/uL RBC 4.66 (4.60-5.80) X10*6/uL Hgb 13.1 L (14.0-18.0) g/dl Hct 40.3 L (42.0-52.0) % MCV 86.5 (80.0-98.0) fL MCH 28.1 (27.0-33.0) pg MCHC 32.5 (31.0-36.0) g/dl RDW 12.9 (11.0-16.0) % Plt Count 510 H (160-400) X10*3/uL MPV 8.5 L (9.4-12.4) fL Immature Gran % (Auto) 0.3 (0.0-0.4) % Neut % (Auto) 55.9 (45-73) % Lymph % (Auto) 32.5 (20-40) % Laporte % (Auto) 8.9 (2-11) % Eos % (Auto) 1.9 (0-4) % Baso % (Auto) 0.5 (0-2) % Lymph # (Auto) 3.4 (1.2-4.9) X10*3/uL [place] # (Auto) 0.9 (0.1-1.2) X10*3/uL Eos # (Auto) 0.2 (0.0-0.4) X10*3/uL Baso # (Auto) 0.1 (0.0-0.2) X10*3/uL Abs Immat Gran (auto) 0.03 (0.00-0.03) X10*3/uL Absolute Neuts (auto) 5.9 (2.0-8.3) x10*3/uL Absolute Nucleated RBC 0.000 (0.0-0.012) X10*3/uL Nucleated RBC % (auto) 0.0 (0.0-0.2) /100WBC Sodium 139 (135-145) mmol/L Potassium 3.9 (3.3-5.1) mmol/L Chloride 98 (96-108) mmol/L Carbon Dioxide 27 (22-29) mmol/L Anion Gap 18 (12-20) BUN 17 H (9-16) mg/dL Creatinine 0.83 (0.5-1.4) mg/dL Estim Creat Clear Calc 115.0 Estimated GFR > 60 Random Glucose 103 (60-115) mg/dL Lactic Acid (0.5-2.0) mmol/L Calcium 9.0 (8.4-10.2) mg/dL Ethyl Alcohol < 10 mg/dL 11/01/22 Range/Units 23:55 WBC (4.8-10.8) X10*3/uL RBC (4.60-5.80) X10*6/uL Hgb (14.0-18.0) g/dl Hct (42.0-52.0) % MCV (80.0-98.0) fL MCH (27.0-33.0) pg MCHC (31.0-36.0) g/dl RDW (11.0-16.0) % Plt Count (160-400) X10*3/uL MPV (9.4-12.4) fL Immature Gran % (Auto) (0.0-0.4) % Neut % (Auto) (45-73) % Lymph % (Auto) (20-40) % [place] % (Auto) (2-11) % Eos % (Auto) (0-4) % Baso % (Auto) (0-2) % Lymph # (Auto) (1.2-4.9) X10*3/uL [place] # (Auto) (0.1-1.2) X10*3/uL Eos # (Auto) (0.0-0.4) X10*3/uL Baso # (Auto) (0.0-0.2) X10*3/uL Abs Immat Gran (auto) (0.00-0.03) X10*3/uL Absolute Neuts (auto) (2.0-8.3) x10*3/uL Absolute Nucleated RBC (0.0-0.012) X10*3/uL Nucleated RBC % (auto) (0.0-0.2) /100WBC Sodium (135-145) mmol/L Potassium (3.3-5.1) mmol/L Chloride (96-108) mmol/L Carbon Dioxide (22-29) mmol/L Anion Gap (12-20) BUN (9-16) mg/dL Creatinine (0.5-1.4) mg/dL Estim Creat Clear Calc Estimated GFR Random Glucose (60-115) mg/dL Lactic Acid 0.8 (0.5-2.0) mmol/L Calcium (8.4-10.2) mg/dL Ethyl Alcohol mg/dL Discharge Plan Discharge Clinical Impression: Cellulitis, Left elbow pain, Polysubstance abuse Patient Disposition: Still a Patient Prescriptions: New cephalexin 500 mg tablet 500 mg PO Q6H 10 Days Qty: 40 0RF doxycycline hyclate 100 mg capsule 100 mg PO BID 10 Days Qty: 20 0RF No Action doxycycline hyclate 100 mg tablet 100 mg PO BID 7 Days Qty: 14 0RF
[2022-11-01] MEDS: cephALEXin 500 MG CAPSULE PO (23:56)
[2022-11-01] MEDS: Doxycycline Monohydrate 100 MG CAPSULE PO (23:56)
[2022-11-02 00:15] LABS: Lactic Acid 0.8 mmol/L (0.5-2.0)
--- NOTE | 2022-11-02 01:49 | PC.NURSE ---
Smart sheet submitted.
--- NOTE | 2022-11-02 01:53 | PC.NURSE ---
Med req completed
--- NOTE | 2022-11-02 02:29 | PC.NURSE ---
Pt sleeping in no apparent distress. Breaths are even and unlabored with equal chest rises. Will continue to monitor.
[2022-11-02 02:35] LABS: COVID-19 Test Negative (Negative); IDNOW Serial# 16C4AD1C
[2022-11-02 03:03] VITALS: BP 170/69; PULSE 72; RESP 16; TEMP 36.8; O2SAT 99
[2022-11-02 03:03] LABS: Amphetamine Screen Urine Not Detected (Not Detect); Barbiturates, Urine Not Detected (Not Detect); Benzodiazepines Screen Urine Not Detected (Not Detect); Cannabinoid Screen Urine Not Detected (Not Detect); Cocaine Screen Urine POSITIVE (Not Detect); Fentanyl, urine POSITIVE (Not Detect); Opiate Screen Urine POSITIVE (Not Detect); Phencyclidine Screen Urine Not Detected (Not Detect)
[2022-11-02 03:17] LABS: Appearance Urine Clear; Color Urine Yellow; Glucose Urine UA Negative (Negative); Leukocyte Esterase Urine Negative (Negative); Nitrite Urine Negative (Negative); Urine Blood Negative (Negative); Urine Ketones Negative (Negative); Urine Protein Negative (Neg-Trace)
--- NOTE | 2022-11-02 05:29 | PC.NURSE ---
Pt up and ambulating to the bathroom, diaphoretic. Pt refused attempt to collect vital signs at this time and reports wanting to be left alone. Pt returned to sleeping at the bedside in no apparent distress. Will continue to monitor.
[2022-11-02 07:35] VITALS: BP 149/87; PULSE 96; RESP 16; TEMP 37.6; O2SAT 97
[2022-11-02] MEDS: cephALEXin 500 MG CAPSULE PO (09:01)
[2022-11-02] MEDS: Doxycycline Monohydrate 100 MG CAPSULE PO (09:01)
[2022-11-02] MEDS: methADONE HCl 20 MG/2 ML ORAL.CONC 30 MG PO (09:44)
--- NOTE | 2022-11-02 09:44 | MHC.RECOVRN ---
Briefly met with pt in [facility] to discuss substance use and desire for ATS. Pt visibly uncomfortable and experiencing withdrawal. Diaphoretic, restless, rhinorrhea, body aches. Pt interested in methadone to address withdrawal. Also interested in ATS. Spoke with ED provider, pt to receive 30 mg methadone and t/w will conduct ATS bedsearch.
--- NOTE | 2022-11-02 10:42 | MHC.RECOVRN ---
Bed secured at [facility] for 12:45, however, pt dc prior to information being relayed to pt.
== END 2022-11-02 10:30 | disposition home or self-care (01) ==
PROVIDERS: Nurse Practitioner Family; Physician Assistant; Emergency Provider Internal Medicine
DX: L03.114 Cellulitis of left upper limb (principal); F11.10 Opioid abuse, uncomplicated; Z20.822 Contact with and (suspected) exposure to COVID-19; Z79.899 Other long term (current) drug therapy
CPT/HCPCS: 36415; 73070; 80048; 80307; 81003; 82077; 83605; 85025; 87040; 87635; 99284

== ENCOUNTER 2023-01-31 19:04 | Inpatient (IN) | payer MEDICARE, MEDICAID, SELFPAY ==
--- NOTE | ~2023-01-31 | XR_ITS ---
EXAMINATION: X-RAY RIGHT FOOT X-RAY LEFT FOOT CLINICAL INFORMATION: Evaluate for osteomyelitis. COMPARISON: No similar priors. TECHNIQUE: 3 views of each foot. FINDINGS: Right foot: No acute fractures or subluxation. No cortical disruption or erosive changes to suspect osteomyelitis by radiograph. No unexpected radiopaque foreign bodies. Left foot: No acute fractures or subluxation. No cortical disruption or erosive changes to suspect osteomyelitis by radiograph. No unexpected radiopaque foreign bodies. XR/XR foot RT 2V IMPRESSION: No radiographic evidence of osteomyelitis. However, early osteomyelitis can be radiographically occult, and if there is clinical suspicious for osteomyelitis, correlation with an MR could be obtain.
--- NOTE | ~2023-01-31 | CT_ITS ---
EXAMINATION: CT FOOT WITH CONTRAST, RIGHT CLINICAL INFORMATION: Right foot swelling and redness. Pain. COMPARISON: Right foot radiographs done earlier the same day. TECHNIQUE: Contiguous axial CT images of the right foot were obtained following the IV administration of 85 mL Omnipaque 350 contrast. Multiplanar reformats were provided and reviewed. This CT examination was performed using dose optimization techniques as appropriate, variously including the following: *Automated exposure control *Adjustment of mA and/or kV according to patient size (this includes techniques or standardized protocols for targeted exams where dose is matched to indication/reason for exam; i.e. extremities or head) *Use of iterative reconstruction technique DLP: 188 mGy-cm FINDINGS: Mild plantar skin thickening and subcutaneous edema. No organized fluid collection or abscess formation. No cortical erosion or periosteal reaction to suggest acute osteomyelitis. No acute fracture or dislocation. No concerning lytic or blastic osseous lesion. No joint space narrowing or marginal osteophytes. No talar osteochondral lesion. The visualized muscles and tendons are grossly intact, however, evaluation is limited on CT examination. Unremarkable vascular structures. No enhancing soft tissue mass. CT/CT foot RT w IV con IMPRESSION: 1. Mild plantar skin thickening and subcutaneous edema. No organized fluid collection or abscess formation. 2. No acute osseous abnormality.
--- NOTE | ~2023-01-31 | XR_ITS ---
EXAMINATION: X-RAY RIGHT FOOT X-RAY LEFT FOOT CLINICAL INFORMATION: Evaluate for osteomyelitis. COMPARISON: No similar priors. TECHNIQUE: 3 views of each foot. FINDINGS: Right foot: No acute fractures or subluxation. No cortical disruption or erosive changes to suspect osteomyelitis by radiograph. No unexpected radiopaque foreign bodies. Left foot: No acute fractures or subluxation. No cortical disruption or erosive changes to suspect osteomyelitis by radiograph. No unexpected radiopaque foreign bodies. XR/XR foot LT 2V IMPRESSION: No radiographic evidence of osteomyelitis. However, early osteomyelitis can be radiographically occult, and if there is clinical suspicious for osteomyelitis, correlation with an MR could be obtain.
[2023-01-31 19:15] VITALS: BP 153/96; PULSE 113; O2SAT 98
[2023-01-31 19:26] VITALS: BP 148/92; PULSE 97; RESP 20; TEMP 36.1; O2SAT 97; BMI 25.0
--- NOTE | 2023-01-31 19:44 | ED_ITS ---
HPI - Wound/Laceration General Chief Complaint: Wound/Laceration <Josefa Ibarra NP - Last Filed: 01/31/23 19:46> Stated Complaint: LEG PAIN <Josefa Ibarra NP - Last Filed: 01/31/23 19:46> Time Seen by Provider: 01/31/23 21:11 <Josefa Ibarra NP - Last Filed: 01/31/23 19:46> Source: patient <Lola Whitfield MD - Last Filed: 01/31/23 21:44> Mode of arrival: EMS <Lola Whitfield MD - Last Filed: 01/31/23 21:44> History of Present Illness HPI narrative: 37-year-old male with substance use disorder arrives via EMS with si gnificant foot pain, right greater than left, significant erythema but denies fevers or chills. He otherwise denies any history of COPD/diabetes/hypertension. <Lola Whitfield MD - Last Filed: 01/31/23 21:44> Related Data Home Medications: Previous Rx's Medication Instructions Recorded cephalexin 500 mg tablet 500 mg PO Q6H 10 days #40 tabs 11/01/22 doxycycline hyclate 100 mg capsule 100 mg PO BID 10 days #20 caps 11/01/22 <Josefa Ibarra NP - Last Filed: 01/31/23 19:46> Allergies/Adverse Reactions: Allergies Allergy/AdvReac Type Severity Reaction Status Date / Time No Known Allergies Allergy Verified 01/31/23 19:29 <Josefa Ibarra NP - Last Filed: 01/31/23 19:46> Review of Systems Review of Systems: Pertinent positives and negatives as stated in HPI <Lola Whitfield MD - Last Filed: 01/31/23 21:44> PMFSH Past Medical History Source: nursing notes reviewed <Lola Whitfield MD - Last Filed: 01/31/23 21:44> Medical History: Medical History Drug abuse Heroin abuse Tobacco use (~01/31/23) <Josefa Ibarra NP - Last Filed: 01/31/23 19:46> Surgical History: Surgical History Surgical history unknown <Josefa Ibarra NP - Last Filed: 01/31/23 19:46> Social History Social History: Social History Household Members: Other Household Members Other:: Homeless Housing: Homeless Do you presently have visiting nurse or other home services: No Unable to assess alcohol history related to: Unable to respond Alcohol intake: never Patient Tobacco Use Status: Current everyday Tobacco user Tobacco use type: Cigarette Substance Use Type: Crack/Cocaine Advance Directives: No Advance Directives Information Provided: No service: No <Josefa Ibarra NP - Last Filed: 01/31/23 19:46> Physical Exam Vital Signs: Vital Signs: Last Vital Signs Temp 97 F 01/31/23 19:26 Pulse 97 01/31/23 19:26 Resp 20 01/31/23 19:26 BP 148/92 H 01/31/23 19:26 Pulse Ox 97 01/31/23 19:26 O2 Del Method 01/31/23 19:26 BMI result Body Mass Index 25.0 <Josefa Ibarra NP - Last Filed: 01/31/23 19:46> Vital Signs: Last Vital Signs Temp 97 F 01/31/23 19:26 Pulse 97 01/31/23 19:26 Resp 20 01/31/23 19:26 BP 148/92 H 01/31/23 19:26 Pulse Ox 97 01/31/23 19:26 O2 Del Method 01/31/23 19:26 BMI result Body Mass Index 25.0 VITAL SIGNS: Reviewed. GENERAL: Unkempt, chronically ill, in no acute distress. HEAD: Normocephalic/atraumatic EYES: PERRLA, EOMI EARS: Ext canals without abnormality, TMs non-bulging and non-erythematous; RIGHT EAR: There is a sore near patient's right ear lobe without drainage but mild surrounding erythema NOSE: Nares patent bilateral OROPHARYNX: no oral lesions noted, posterior pharynx clear, and there are multiple sores around the outer left side of patient's mouth NECK: Supple, no adenopathy LUNGS: Normal breath sounds. No adventitious sounds or accessory muscle use. SpO2<97> CARDIOVASCULAR: Tachycardic rate and rhythm with noted murmurs, no JVD or lower extremity edema. ABDOMEN: Soft, non-tender, non-distended with bowel sounds. MUSCULOSKELETAL: No tenderness, deformities, or effusions noted on gross inspection. EXTREMITIES: No cyanosis, clubbing or edema; BILATERAL FEET: Erythematous, swollen, there is a specific ulcer/wound noted at the base of the 2nd right toe with significant surrounding erythema and the right lower extremity is noted to have warmth and mild erythema proximal to the knee without overt induration; LEFT UPPER EXTREMITY: There is a small eschar noted to elbow as well as ring finger of left hand with surrounding erythema and swelling. SKIN: Inspection of the skin reveals no rashes, as described above NEUROLOGIC: Alert and oriented x 4. Strength and sensation to light touch were grossly intact x 4. <Lola Whitfield MD - Last Filed: 01/31/23 21:44> Course Course Course Narrative: 1945-This is a rapid medical exam. Defer additional HPI, ROS and PE to primary provider. 37-year-old male with a history of polysubstance abuse who is currently homeless who presents with bilateral feet pain with wounds for the last 2 days. Patient reports he is currently homeless in his feet often get wet and stay in his wet shoes and socks. He reports over the last 2 days increasing pain right greater than left foot with redness and swelling. Patient also complaining of generalized myalgias and headache. No fever. Patient denies any IV drug use. Patient reports he is sniffing heroin and cocaine daily. He is currently on methadone 45 mg but did not receive his morning dose as he is unable to ambulate due to pain. On exam patient with bilateral foot wounds right greater than left with swelling and erythema extending over the dorsum of both feet. Will obtain labs, COVID screen, drug screen. At this time infection is suspected. Antibiotics ordered. Patient may need admission <Josefa Ibarra NP - Last Filed: 01/31/23 19:46> Medications Administered Discontinued Medications Generic Name Dose Route Start Last Admin Trade Name Freq PRN Reason Stop Dose Admin Piperacillin Sod/Tazobactam 50 mls @ 100 mls/hr 01/31/23 19:44 01/31/23 20:18 Sod 3.375 gm/ Sodium Chloride IV 01/31/23 20:13 100 mls/hr ONCE ONE Administration <Josefa Ibarra NP - Last Filed: 01/31/23 19:46> Medications Administered Discontinued Medications Generic Name Dose Route Start Last Admin Trade Name Kennedi PRN Reason Stop Dose Admin Piperacillin Sod/Tazobactam 50 mls @ 100 mls/hr 01/31/23 19:44 01/31/23 20:18 Sod 3.375 gm/ Sodium Chloride IV 01/31/23 20:13 100 mls/hr ONCE ONE Administration <Lola Whitfield MD - Last Filed: 01/31/23 21:44> Medical Decision Making Medical Decision Making MDM Narrative: 37-year-old male with history and clinical presentation after review of all investigations consistent with cellulitis and suspect osteomyelitis of the right 2nd toe and auscultation heart sounds with noted murmur and longstanding history of substance use disorder. Patient will be given fluids, antibiotics, and I discussed the case with the inpatient hospitalist who accepts admission. Patient will also receive a 20 mg dose of methadone until his usual dose can be verified. He is otherwise hemodynamically stable. <Lola Whitfield MD - Last Filed: 01/31/23 21:44> Differential Diagnosis Please see the discussion above <Lola Whitfield MD - Last Filed: 01/31/23 21:44> Consult Healthcare Provider Management of the patient was discussed with: Hospitalist <Lola Whitfield MD - Last Filed: 01/31/23 21:44> Please see the discussion above <Lola Whitfield MD - Last Filed: 01/31/23 21:44> Lab Data Please see the discussion above <Lola Whitfield MD - Last Filed: 01/31/23 21:44> Result Diagrams: 01/31/23 20:08 01/31/23 20:08 <Josefa Ibarra NP - Last Filed: 01/31/23 19:46> Labs: Lab Results 01/31/23 01/31/23 01/31/23 Range/Units 20:08 20:08 20:08 WBC 17.3 H (4.8-10.8) X10*3/uL RBC 4.23 L (4.60-5.80) X10*6/uL Hgb 12.2 L (14.0-18.0) g/dl Hct 37.6 L (42.0-52.0) % MCV 88.9 (80.0-98.0) fL MCH 28.8 (27.0-33.0) pg MCHC 32.4 (31.0-36.0) g/dl RDW 13.2 (11.0-16.0) % Plt Count 432 H (160-400) X10*3/uL MPV 9.0 L (9.4-12.4) fL Immature Gran % (Auto) 0.5 H (0.0-0.4) % Neut % (Auto) 77.8 H (45-73) % Lymph % (Auto) 13.3 L (20-40) % [place] % (Auto) 6.9 (2-11) % Eos % (Auto) 1.2 (0-4) % Baso % (Auto) 0.3 (0-2) % Lymph # (Auto) 2.3 (1.2-4.9) X10*3/uL [place] # (Auto) 1.2 (0.1-1.2) X10*3/uL Eos # (Auto) 0.2 (0.0-0.4) X10*3/uL Baso # (Auto) 0.1 (0.0-0.2) X10*3/uL Abs Immat Gran (auto) 0.09 H (0.00-0.03) X10*3/uL Absolute Neuts (auto) 13.5 H (2.0-8.3) x10*3/uL Absolute Nucleated RBC 0.000 (0.0-0.012) X10*3/uL Nucleated RBC % (auto) 0.0 (0.0-0.2) /100WBC ESR 29 H (0-15) MM/HR Sodium 140 (135-145) mmol/L Potassium 3.7 (3.3-5.1) mmol/L Chloride 100 (96-108) mmol/L Carbon Dioxide 29 (22-29) mmol/L Anion Gap 15 (12-20) BUN 12 (9-16) mg/dL Creatinine 0.77 (0.5-1.4) mg/dL Estim Creat Clear Calc 123.9 Estimated GFR > 60 Random Glucose 109 (60-115) mg/dL Lactic Acid (0.5-2.0) mmol/L Calcium 8.8 (8.4-10.2) mg/dL Magnesium 2.1 (1.6-2.6) mg/dL Total Bilirubin 0.5 (0.0-1.0) mg/dL Direct Bilirubin 0.2 (0.0-0.5) mg/dL AST 36 (5-37) U/L ALT 28 (0-40) U/L Alkaline Phosphatase 95 (39-117) U/L C-Reactive Protein 9.51 H (< or = 0.50) mg/dL Total Protein 6.9 (6.5-8.0) g/dL Albumin 4.0 (3.5-5.0) g/dL COVID-19 (JORGE) (Negative) COVID-19 Clin Com 01/31/23 01/31/23 Range/Units 20:08 20:08 WBC (4.8-10.8) X10*3/uL RBC (4.60-5.80) X10*6/uL Hgb (14.0-18.0) g/dl Hct (42.0-52.0) % MCV (80.0-98.0) fL MCH (27.0-33.0) pg MCHC (31.0-36.0) g/dl RDW (11.0-16.0) % Plt Count (160-400) X10*3/uL MPV (9.4-12.4) fL Immature Gran % (Auto) (0.0-0.4) % Neut % (Auto) (45-73) % Lymph % (Auto) (20-40) % [place] % (Auto) (2-11) % Eos % (Auto) (0-4) % Baso % (Auto) (0-2) % Lymph # (Auto) (1.2-4.9) X10*3/uL [place] # (Auto) (0.1-1.2) X10*3/uL Eos # (Auto) (0.0-0.4) X10*3/uL Baso # (Auto) (0.0-0.2) X10*3/uL Abs Immat Gran (auto) (0.00-0.03) X10*3/uL Absolute Neuts (auto) (2.0-8.3) x10*3/uL Absolute Nucleated RBC (0.0-0.012) X10*3/uL Nucleated RBC % (auto) (0.0-0.2) /100WBC ESR (0-15) MM/HR Sodium (135-145) mmol/L Potassium (3.3-5.1) mmol/L Chloride (96-108) mmol/L Carbon Dioxide (22-29) mmol/L Anion Gap (12-20) BUN (9-16) mg/dL Creatinine (0.5-1.4) mg/dL Estim Creat Clear Calc Estimated GFR Random Glucose (60-115) mg/dL Lactic Acid 1.2 (0.5-2.0) mmol/L Calcium (8.4-10.2) mg/dL Magnesium (1.6-2.6) mg/dL Total Bilirubin (0.0-1.0) mg/dL Direct Bilirubin (0.0-0.5) mg/dL AST (5-37) U/L ALT (0-40) U/L Alkaline Phosphatase (39-117) U/L C-Reactive Protein (< or = 0.50) mg/dL Total Protein (6.5-8.0) g/dL Albumin (3.5-5.0) g/dL COVID-19 (JORGE) Negative (Negative) COVID-19 Clin Com See Note <Josefa Ibarra, FORENSIC IDENTIFICATION SPECIALIST - Last Filed: 01/31/23 19:46> Lab Results 01/31/23 01/31/23 01/31/23 Range/Units 20:08 20:08 20:08 WBC 17.3 H (4.8-10.8) X10*3/uL RBC 4.23 L (4.60-5.80) X10*6/uL Hgb 12.2 L (14.0-18.0) g/dl Hct 37.6 L (42.0-52.0) % MCV 88.9 (80.0-98.0) fL MCH 28.8 (27.0-33.0) pg MCHC 32.4 (31.0-36.0) g/dl RDW 13.2 (11.0-16.0) % Plt Count 432 H (160-400) X10*3/uL MPV 9.0 L (9.4-12.4) fL Immature Gran % (Auto) 0.5 H (0.0-0.4) % Neut % (Auto) 77.8 H (45-73) % Lymph % (Auto) 13.3 L (20-40) % [place] % (Auto) 6.9 (2-11) % Eos % (Auto) 1.2 (0-4) % Baso % (Auto) 0.3 (0-2) % Lymph # (Auto) 2.3 (1.2-4.9) X10*3/uL [place] # (Auto) 1.2 (0.1-1.2) X10*3/uL Eos # (Auto) 0.2 (0.0-0.4) X10*3/uL Baso # (Auto) 0.1 (0.0-0.2) X10*3/uL Abs Immat Gran (auto) 0.09 H (0.00-0.03) X10*3/uL Absolute Neuts (auto) 13.5 H (2.0-8.3) x10*3/uL Absolute Nucleated RBC 0.000 (0.0-0.012) X10*3/uL Nucleated RBC % (auto) 0.0 (0.0-0.2) /100WBC ESR 29 H (0-15) MM/HR Sodium 140 (135-145) mmol/L Potassium 3.7 (3.3-5.1) mmol/L Chloride 100 (96-108) mmol/L Carbon Dioxide 29 (22-29) mmol/L Anion Gap 15 (12-20) BUN 12 (9-16) mg/dL Creatinine 0.77 (0.5-1.4) mg/dL Estim Creat Clear Calc 123.9 Estimated GFR > 60 Random Glucose 109 (60-115) mg/dL Lactic Acid (0.5-2.0) mmol/L Calcium 8.8 (8.4-10.2) mg/dL Magnesium 2.1 (1.6-2.6) mg/dL Total Bilirubin 0.5 (0.0-1.0) mg/dL Direct Bilirubin 0.2 (0.0-0.5) mg/dL AST 36 (5-37) U/L ALT 28 (0-40) U/L Alkaline Phosphatase 95 (39-117) U/L C-Reactive Protein 9.51 H (< or = 0.50) mg/dL Total Protein 6.9 (6.5-8.0) g/dL Albumin 4.0 (3.5-5.0) g/dL COVID-19 (JORGE) (Negative) COVID-19 Clin Com 01/31/23 01/31/23 Range/Units 20:08 20:08 WBC (4.8-10.8) X10*3/uL RBC (4.60-5.80) X10*6/uL Hgb (14.0-18.0) g/dl Hct (42.0-52.0) % MCV (80.0-98.0) fL MCH (27.0-33.0) pg MCHC (31.0-36.0) g/dl RDW (11.0-16.0) % Plt Count (160-400) X10*3/uL MPV (9.4-12.4) fL Immature Gran % (Auto) (0.0-0.4) % Neut % (Auto) (45-73) % Lymph % (Auto) (20-40) % [place] % (Auto) (2-11) % Eos % (Auto) (0-4) % Baso % (Auto) (0-2) % Lymph # (Auto) (1.2-4.9) X10*3/uL [place] # (Auto) (0.1-1.2) X10*3/uL Eos # (Auto) (0.0-0.4) X10*3/uL Baso # (Auto) (0.0-0.2) X10*3/uL Abs Immat Gran (auto) (0.00-0.03) X10*3/uL Absolute Neuts (auto) (2.0-8.3) x10*3/uL Absolute Nucleated RBC (0.0-0.012) X10*3/uL Nucleated RBC % (auto) (0.0-0.2) /100WBC ESR (0-15) MM/HR Sodium (135-145) mmol/L Potassium (3.3-5.1) mmol/L Chloride (96-108) mmol/L Carbon Dioxide (22-29) mmol/L Anion Gap (12-20) BUN (9-16) mg/dL Creatinine (0.5-1.4) mg/dL Estim Creat Clear Calc Estimated GFR Random Glucose (60-115) mg/dL Lactic Acid 1.2 (0.5-2.0) mmol/L Calcium (8.4-10.2) mg/dL Magnesium (1.6-2.6) mg/dL Total Bilirubin (0.0-1.0) mg/dL Direct Bilirubin (0.0-0.5) mg/dL AST (5-37) U/L ALT (0-40) U/L Alkaline Phosphatase (39-117) U/L C-Reactive Protein (< or = 0.50) mg/dL Total Protein (6.5-8.0) g/dL Albumin (3.5-5.0) g/dL COVID-19 (JORGE) Negative (Negative) COVID-19 Clin Com See Note <Lola Whitfield MD - Last Filed: 01/31/23 21:44> Radiology Impression Radiologist Impression: My interpretation of the imaging studies is not complete fully in agreement with radiology's impression, I feel that there may be small amount of periosteal inflammation noted to the lateral side of the proximal 2nd right toe. <Lola Whitfield MD - Last Filed: 01/31/23 21:44> External Record Review External record reviewed: Outpatient record and Prior outpatient labs <Lola Whitfield MD - Last Filed: 01/31/23 21:44> Chronic Conditions Substance use disorder <Lola Whitfield MD - Last Filed: 01/31/23 21:44> Critical Care Time Critical Care Time Critical Care Time: Yes <Lola Whitfield MD - Last Filed: 01/31/23 21:44> Total Critical Care Time: 30 <Lola Whitfield MD - Last Filed: 01/31/23 21:44> Attestation: I personally attest to this time spent taking care of the patient. <Lola Whitfield MD - Last Filed: 01/31/23 21:44> Discharge Plan Discharge Clinical Impression: Cellulitis, Osteomyelitis, Substance use disorder, Heart murmur <Josefa Ibarra NP - Last Filed: 01/31/23 19:46> Patient Disposition: Admitted As Inpatient <Josefa Ibarra NP - Last Filed: 01/31/23 19:46> Prescriptions: No Action cephalexin 500 mg tablet 500 mg PO Q6H 10 Days Qty: 40 0RF doxycycline hyclate 100 mg capsule 100 mg PO BID 10 Days Qty: 20 0RF <Josefa Ibarra NP - Last Filed: 01/31/23 19:46>
[2023-01-31 20:15] LABS: MANUAL DIFF FLAG NO
[2023-01-31] MEDS: Piperacillin Sodium/Tazobactam 3.375 GM in 0.9 % Sodium Chloride 50 ML IV (20:18)
[2023-01-31 20:22] LABS: Basophils Absolute Auto 0.1 X10*3/uL (0.0-0.2); Basophils Percent Auto 0.3 % (0-2); Eosinophils Absolute Auto 0.2 X10*3/uL (0.0-0.4); Eosinophils Percent Auto 1.2 % (0-4); Hematocrit 37.6 % (42.0-52.0); Hemoglobin 12.2 g/dl (14.0-18.0); Imm Gran Abs Auto 0.09 X10*3/uL (0.00-0.03); Imm Gran Pct Auto 0.5 % (0.0-0.4); Lymphocytes Absolute Auto 2.3 X10*3/uL (1.2-4.9); Lymphocytes Percent Auto 13.3 % (20-40); Mean Corpuscular HGB Conc 32.4 g/dl (31.0-36.0); Mean Corpuscular Hemoglobin 28.8 pg (27.0-33.0); Mean Corpuscular Volume 88.9 fL (80.0-98.0); Monocytes Absolute Auto 1.2 X10*3/uL (0.1-1.2); Monocytes Percent Auto 6.9 % (2-11); Neutrophils Absolute Auto 13.5 x10*3/uL (2.0-8.3); Neutrophils Percent Auto 77.8 % (45-73); Platelet Count 432 X10*3/uL (160-400); Red Blood Count 4.23 X10*6/uL (4.60-5.80); Red Cell Distribution Width 13.2 % (11.0-16.0); White Blood Count 17.3 X10*3/uL (4.8-10.8)
[2023-01-31 20:41] LABS: Lactic Acid 1.2 mmol/L (0.5-2.0)
[2023-01-31 20:44] LABS: Alanine Aminotransferase 28 U/L (0-40); Alkaline Phosphatase 95 U/L (39-117); Anion Gap 15 (12-20); Aspartate Amino Transferase 36 U/L (5-37); Bilirubin Direct 0.2 mg/dL (0.0-0.5); Bilirubin Total 0.5 mg/dL (0.0-1.0); Blood Urea Nitrogen 12 mg/dL (9-16); C Reactive Protein 9.51 mg/dL (< or = 0.50); COVID-19 Test Negative (Negative); Calcium 8.8 mg/dL (8.4-10.2); Carbon Dioxide 29 mmol/L (22-29); Chloride 100 mmol/L (96-108); Creatinine Clr Calc Pharmacy 123.9; Estimated Glomerular Filt Rate > 60; Glucose Random 109 mg/dL (60-115); IDNOW Serial# 6674DD1D; Magnesium 2.1 mg/dL (1.6-2.6); Potassium 3.7 mmol/L (3.3-5.1); Sodium 140 mmol/L (135-145); Total Protein 6.9 g/dL (6.5-8.0)
[2023-01-31 21:11] LABS: Erythrocyte Sedimentation Rate 29 MM/HR (0-15)
--- NOTE | 2023-01-31 21:26 | PM.IMHP ---
History of Present Illness Date of Service: 01/31/23 Chief Complaint: Foot pain This is a 37-year-old male with pertinent history of substance use disorder, tobacco use disorder who presents to the emergency department for evaluation of right foot pain. Patient states he has had right foot pain for the last 2 days. Associated with swelling and redness. Patient denies fever, chills. Denies similar complaints in the past. Denies IV substance use disorder, states he sniffs cocaine and heroin. Denies being on prescription medications and pertinent past medical history. Patient states his right great toe has been hurting and it has gotten worse over the last 2 days, constant and without any relieving factors. Also has associated generalized malaise. He is homeless and his feet often get weight and patient stays in wet shoes and socks. Patient denies chest discomfort, palpitations, shortness of breath, abdominal pain, changes in urinary bowel habits. In the emergency department, patient was found to be septic. Review of Systems Constitutional: Constitutional: Reports fatigue and Reports malaise Cardiovascular: Cardiovascular: Reports no additional cardiovascular complaints Respiratory: Respiratory: Reports no additional respiratory complaints Gastrointestinal: Gastrointestinal: Reports no additional gastrointestinal complaints Genitourinary: Genitourinary: Reports no additional male genitourinary complaints Musculoskeletal: Musculoskeletal: Reports arthralgias Endocrine: Endocrine: Reports fatigue PMFSH Medical History Drug abuse Heroin abuse Tobacco use (~01/31/23) Pertinent family history: No family history of CAD Surgical History Surgical history unknown Social History Household Members: Other Household Members Other:: Homeless Housing: Homeless Do you presently have visiting nurse or other home services: No Unable to assess alcohol history related to: Unable to respond Alcohol intake: never Patient Tobacco Use Status: Current everyday Tobacco user Tobacco use type: Cigarette Substance Use Type: Crack/Cocaine Advance Directives: No Advance Directives Information Provided: No service: No Meds Allergies Allergy/AdvReac Type Severity Reaction Status Date / Time No Known Allergies Allergy Verified 01/31/23 19:29 Physical Exam Vital Signs and Narrative: Vital Signs: Last Vital Signs Temp 97 F 01/31/23 19:26 Pulse 97 01/31/23 19:26 Resp 20 01/31/23 19:26 BP 148/92 H 01/31/23 19:26 Pulse Ox 97 01/31/23 19:26 O2 Del Method 01/31/23 19:26 BMI result Body Mass Index 25.0 Middle-aged male lying in bed in no distress Neck supple, no JVD Regular rate and rhythm, S1-S2 heard Regular breath sounds bilaterally, no wheezing or crackles appreciated Abdomen soft nontender, no guarding, no rigidity Patient is awake, alert and oriented to self, place, time and person ; no focal motor deficit Musculoskeletal: Nondraining wound over base of 2nd right toe with surrounding erythema, swelling, warmth and tenderness ; eschar over left elbow and left 3rd finger Psych: Normal mood No pedal edema Results Labs 01/31/23 20:08 01/31/23 20:08 Labs: Laboratory Results - last 24 hr 01/31/23 01/31/23 01/31/23 20:08 20:08 20:08 MCV 88.9 MCH 28.8 MCHC 32.4 RDW 13.2 Plt Count 432 H MPV 9.0 L Immature Gran % (Auto) 0.5 H Neut % (Auto) 77.8 H Lymph % (Auto) 13.3 L [place] % (Auto) 6.9 Eos % (Auto) 1.2 Baso % (Auto) 0.3 Lymph # (Auto) 2.3 [place] # (Auto) 1.2 Eos # (Auto) 0.2 Baso # (Auto) 0.1 Abs Immat Gran (auto) 0.09 H Absolute Neuts (auto) 13.5 H Absolute Nucleated RBC 0.000 Nucleated RBC % (auto) 0.0 ESR 29 H Anion Gap 15 Estim Creat Clear Calc 123.9 Estimated GFR > 60 Random Glucose 109 Lactic Acid Calcium 8.8 Magnesium 2.1 Total Bilirubin 0.5 Direct Bilirubin 0.2 AST 36 ALT 28 Alkaline Phosphatase 95 C-Reactive Protein 9.51 H Total Protein 6.9 Albumin 4.0 COVID-19 (JORGE) COVID-19 Clin Com 01/31/23 01/31/23 20:08 20:08 MCV MCH MCHC RDW Plt Count MPV Immature Gran % (Auto) Neut % (Auto) Lymph % (Auto) [place] % (Auto) Eos % (Auto) Baso % (Auto) Lymph # (Auto) [place] # (Auto) Eos # (Auto) Baso # (Auto) Abs Immat Gran (auto) Absolute Neuts (auto) Absolute Nucleated RBC Nucleated RBC % (auto) ESR Anion Gap Estim Creat Clear Calc Estimated GFR Random Glucose Lactic Acid 1.2 Calcium Magnesium Total Bilirubin Direct Bilirubin AST ALT Alkaline Phosphatase C-Reactive Protein Total Protein Albumin COVID-19 (JORGE) Negative COVID-19 Clin Com See Note Imaging Radiologist's Impressions: Impressions Foot X-Ray 01/31/23 19:54 IMPRESSION: No radiographic evidence of osteomyelitis. However, early osteomyelitis can be radiographically occult, and if there is clinical suspicious for osteomyelitis, correlation with an MR could be obtain. Foot X-Ray 01/31/23 19:54 IMPRESSION: No radiographic evidence of osteomyelitis. However, early osteomyelitis can be radiographically occult, and if there is clinical suspicious for osteomyelitis, correlation with an MR could be obtain. Assessment and Plan (1) Cellulitis: Status: Acute Plan This is a 37-year-old male with pertinent history of substance use disorder, tobacco use disorder who presents to the emergency department for evaluation of right foot pain. #. Sepsis due to right 2nd toe cellulitis: Will admit patient and initiate IV vancomycin. Obtaining CAT scan to rule out osteomyelitis. Unable to obtain MRI as MRI foot unavailable in the facility. Blood culture and lactic acid obtained. Resuscitated with IV crystalloids #. Substance use disorders: Admits to use using cocaine and heroin. On methadone program. Consulting CARE team and addiction team. UDS pending #. Homelessness: Consulting outreach and education social worker #. Tobacco use disorder: Offering nicotine patch in the hospital DVT prophylaxis: Lovenox 40 mg daily Full code Regular diet Admit as inpatient and will require two night minimum hospital stay for IV antibiotics Time Spent With Patient Time: Total time managing care of this patient today ____ minutes. Quality Stroke Does the patient have a stroke diagnosis?: No VTE Prior VTE?: No VTE Risk Level:: Medical - moderate - high VTE Device Contraindication: Treatment Not Indicated VTE Drug Contraindication: N/A - Med Ordered
--- NOTE | 2023-01-31 21:41 | ECG_ITS ---
Test Reason : RO SEPSIS Blood Pressure : / mmHG Vent. Rate : 092 BPM Atrial Rate : 092 BPM P-R Int : 156 ms QRS Dur : 082 ms QT Int : 368 ms P-R-T Axes : 059 030 046 degrees QTc Int : 455 ms Normal sinus rhythm Normal ECG When compared with ECG of 26-SEP-2022 16:08, No significant change was found Referred By: Lola Whitfield Electronically Signed By:BERNARDO ENGLISH
--- NOTE | 2023-01-31 22:00 | PHA.PROG ---
Admission Date/Time: January 31, 2023 21:24 Indication: SKIN AND SKIN STRUCTURE Weight in k.575 kg Adjusted body weight in K.7 [place] body weight in Kg: Obesity Dosing Indication % IBW:9.83% OVER IBW Serum Creatinine - Last 168 Hours 01/31/23 20:08 Creatinine 0.77 Estimated CrCl and GFR - Last 168 Hours 01/31/23 20:08 Estim Creat Clear Calc 123.9 Estimated GFR > 60 Vancomycin Loading Dose: 1750 MG Current Vancomycin Dosing Regimen: 1250 mg q 12 hours Vancomycin Monitoring using AUC goal of 400 - 600 range with trough as surrogate marker: Date and Time for next Vancomycin Level to be drawn:02/02/23 0800 Pharmacist Comments on Vancomycin Plan:predicted auc of 503 Vancomycin dosing will take advantage of [employer] as a clinical decision support tool that uses Bayesian modeling to calculate individual patient's pharmacokinetic parameters and forecast the patient's drug concentration time course with the target goal AUC 24 range of 400 - 600 mg/L/hr.
[2023-01-31] MEDS: vancomycin HCL 1,000 MG, vancomycin HCL 750 MG in 0.9 % Sodium Chloride 500 ML 267.5 MG IV (22:23)
[2023-01-31] MEDS: Nicotine 14 MG PATCH.TD24 TRANSDERMA (22:24)
[2023-01-31] MEDS: Enoxaparin Sodium 40 MG/0.4 ML SYRINGE SUBCUT (22:24)
[2023-01-31] MEDS: methADONE HCl 20 MG/2 ML ORAL.CONC PO (22:25)
[2023-01-31] MEDS: iohexoL 350 MG/ML 100 ML INFUS..BTL IV (22:27)
[2023-01-31] MEDS: 0.9 % Sodium Chloride 1,000 ML 999 ML IV (22:28)
[2023-01-31 22:40] VITALS: BP 135/92; PULSE 98; RESP 16; O2SAT 96
[2023-01-31 23:20] LABS: Appearance Urine Clear; Color Urine Yellow; Glucose Urine UA Negative (Negative); Leukocyte Esterase Urine Negative (Negative); Nitrite Urine Negative (Negative); PH 6.5 (5.0-9.0); Specific Gravity - Urine >= 1.030 (1.005-1.025); Urine Blood Negative (Negative); Urine Ketones Negative (Negative); Urine Protein Trace mg/dL (Neg-Trace)
[2023-01-31 23:32] LABS: Amphetamine Screen Urine Not Detected (Not Detect); Barbiturates, Urine Not Detected (Not Detect); Benzodiazepines Screen Urine Not Detected (Not Detect); Cannabinoid Screen Urine Not Detected (Not Detect); Cocaine Screen Urine POSITIVE (Not Detect); Fentanyl, urine POSITIVE (Not Detect); Opiate Screen Urine POSITIVE (Not Detect); Phencyclidine Screen Urine Not Detected (Not Detect)
[2023-01-31 23:55] VITALS: BP 136/79; PULSE 86; RESP 16; O2SAT 97
[2023-02-01 00:27] VITALS: BP 142/93; PULSE 92; RESP 16; TEMP 37.4; O2SAT 96
[2023-02-01 03:43] VITALS: BP 143/104; PULSE 89; RESP 18; TEMP 37.4; O2SAT 96
[2023-02-01 06:23] LABS: MANUAL DIFF FLAG NO
[2023-02-01 06:26] LABS: Basophils Absolute Auto 0.1 X10*3/uL (0.0-0.2); Basophils Percent Auto 0.5 % (0-2); Eosinophils Absolute Auto 0.3 X10*3/uL (0.0-0.4); Eosinophils Percent Auto 2.2 % (0-4); Hematocrit 35.2 % (42.0-52.0); Hemoglobin 11.4 g/dl (14.0-18.0); Imm Gran Abs Auto 0.08 X10*3/uL (0.00-0.03); Imm Gran Pct Auto 0.6 % (0.0-0.4); Lymphocytes Absolute Auto 2.6 X10*3/uL (1.2-4.9); Lymphocytes Percent Auto 19.6 % (20-40); Mean Corpuscular HGB Conc 32.4 g/dl (31.0-36.0); Mean Corpuscular Hemoglobin 29.2 pg (27.0-33.0); Mean Platelet Volume 9.3 fL (9.4-12.4); Monocytes Absolute Auto 1.2 X10*3/uL (0.1-1.2); Monocytes Percent Auto 8.7 % (2-11); Neutrophils Absolute Auto 9.1 x10*3/uL (2.0-8.3); Neutrophils Percent Auto 68.4 % (45-73); Platelet Count 422 X10*3/uL (160-400); Red Blood Count 3.91 X10*6/uL (4.60-5.80); Red Cell Distribution Width 13.5 % (11.0-16.0); White Blood Count 13.3 X10*3/uL (4.8-10.8)
[2023-02-01 06:44] LABS: Anion Gap 13 (12-20); Blood Urea Nitrogen 11 mg/dL (9-16); Calcium 8.1 mg/dL (8.4-10.2); Carbon Dioxide 27 mmol/L (22-29); Chloride 105 mmol/L (96-108); Creatinine Clr Calc Pharmacy 132.6; Estimated Glomerular Filt Rate > 60; Glucose Random 106 mg/dL (60-115); Potassium 3.8 mmol/L (3.3-5.1); Sodium 141 mmol/L (135-145)
[2023-02-01 07:43] VITALS: BP 139/76; PULSE 85; RESP 18; TEMP 37.7; O2SAT 98
[2023-02-01] MEDS: vancomycin HCL 1,250 MG in 0.9 % Sodium Chloride 250 ML 166.67 MG IV ×2 (09:10→21:34)
[2023-02-01] MEDS: 0.9 % Sodium Chloride Flush 3 ML SYRINGE IVFLUSH ×2 (09:10→15:28)
--- NOTE | 2023-02-01 09:10 | PHA.MEDREC ---
Pharmacy Consult ? Medication Reconciliation Pharmacy has completed the medication reconciliation. Pt states no medications
--- NOTE | 2023-02-01 09:42 | MHC.RECOVRN ---
Met with pt in 383 after consult placed to Addiction Medicine. Pt reports using heroin, not much, maybe 5 bags daily, IN, as well as crack cocaine use, approx 2 grams, INH. When asked how patient is feeling, states I could use a dose. Pt reports going to [facility] on [facility] x 1 week, currently receiving 45 mg methadone. Pt denies questions or concerns for t/w at this time. Discussed with RN as well as Allison López APRN.
--- NOTE | 2023-02-01 11:04 | HE.PHANOTE ---
Methadone Maintenance Clinic Verification Form . N . Methadone Dose 45 mg . Last dose 01/30/23
[2023-02-01] MEDS: methADONE HCl 20 MG/2 ML ORAL.CONC 50 MG PO (12:51)
--- NOTE | 2023-02-01 13:11 | HO.PM.IMPN ---
Subjective Subjective Date of Service: 02/01/23 Interval History: no acute issues overnight. Tolerating therapies. Describes pain is 5 05/08 Review of Systems denies chest pain Denies shortness of breath Denies nausea vomiting diarrhea Denies fever chills Physical Exam Vital Signs: Vital Signs: Last Vital Signs Temp 99.8 F 02/01/23 07:43 Pulse 85 02/01/23 07:43 Resp 18 02/01/23 07:43 BP 139/76 02/01/23 07:43 Pulse Ox 98 02/01/23 07:43 O2 Del Method 02/01/23 07:43 BMI result Body Mass Index 25.0 Const: Other: awake alert; appears uncomfortable in bed Resp: Other: clear to auscultation bilaterally no rales rhonchi wheezes Cardio: Other: no S4; positive S1-S2; no S3 murmurs rubs or gallops GI: Other: soft nontender nondistended normoactive bowel sounds Extrem: Other: ulcer wound at the base of the right 2nd toe with significant erythema; right extremity erythematous and warm Objective Data Active Medications Acetaminophen (Acetaminophen 325 Mg Tablet) 650 mg PO Q6H PRN PRN Reason: Pain, Mild (Pain Scale 1-3) Enoxaparin Sodium (Enoxaparin Sodium 40 Mg/0.4 Ml Syringe) 40 mg SUBCUT Q24H [facility] Last Admin: 01/31/23 22:24 Dose: 40 mg Documented By: COCO Vancomycin HCl 1,250 mg/ (Sodium Chloride) 250 mls @ 166.667 mls/hr IV Q12H [facility] Last Infusion: 02/01/23 11:36 Dose: 0 mls/hr Documented By: DAVION Melatonin (Melatonin 3 Mg Tablet) 6 mg PO BEDTIME PRN PRN Reason: Insomnia Methadone HCl (Methadone Hcl 20 Mg/2 Ml Oral.Conc) 50 mg PO DAILY [facility] Last Admin: 02/01/23 12:51 Dose: 50 mg Documented By: DAVION Ondansetron HCl (Ondansetron Hcl 4 Mg/2 Ml Vial) 4 mg IVPUSH Q8H PRN PRN Reason: Nausea and Vomiting Pharmacy Consult (Consult Rx Vancomycin Dosing) 1 each MISCELLANE DAILY PRN PRN Reason: Consult order Sodium Chloride (0.9 % Sodium Chloride Flush 3 Ml Syringe) 3 ml IVFLUSH QSHIFT [facility] Last Admin: 02/01/23 09:10 Dose: 3 ml Documented By: DAVION Labs 02/01/23 05:34 02/01/23 05:34 Labs: Laboratory Results - last 24 hr 01/31/23 01/31/23 01/31/23 20:08 20:08 20:08 MCV 88.9 MCH 28.8 MCHC 32.4 RDW 13.2 Plt Count 432 H MPV 9.0 L Immature Gran % (Auto) 0.5 H Neut % (Auto) 77.8 H Lymph % (Auto) 13.3 L [place] % (Auto) 6.9 Eos % (Auto) 1.2 Baso % (Auto) 0.3 Lymph # (Auto) 2.3 [place] # (Auto) 1.2 Eos # (Auto) 0.2 Baso # (Auto) 0.1 Abs Immat Gran (auto) 0.09 H Absolute Neuts (auto) 13.5 H Absolute Nucleated RBC 0.000 Nucleated RBC % (auto) 0.0 ESR 29 H Anion Gap 15 Estim Creat Clear Calc 123.9 Estimated GFR > 60 Random Glucose 109 Lactic Acid Calcium 8.8 Magnesium 2.1 Total Bilirubin 0.5 Direct Bilirubin 0.2 AST 36 ALT 28 Alkaline Phosphatase 95 C-Reactive Protein 9.51 H Total Protein 6.9 Albumin 4.0 Urine Color Urine Appearance Urine pH Ur Specific [place] Urine Protein Urine Glucose (UA) Urine Ketones Urine Blood Urine Nitrite Ur Leukocyte Esterase Urine Opiates Screen Urine Fentanyl Screen Ur Barbiturates Screen Ur Phencyclidine Scrn Ur Amphetamines Screen U Benzodiazepines Scrn Urine Cocaine Screen U Marijuana (THC) Screen COVID-19 ([facility]) COVID-19 Clin Com 01/31/23 01/31/23 01/31/23 20:08 20:08 22:50 MCV MCH MCHC RDW Plt Count MPV Immature Gran % (Auto) Neut % (Auto) Lymph % (Auto) [place] % (Auto) Eos % (Auto) Baso % (Auto) Lymph # (Auto) [place] # (Auto) Eos # (Auto) Baso # (Auto) Abs Immat Gran (auto) Absolute Neuts (auto) Absolute Nucleated RBC Nucleated RBC % (auto) ESR Anion Gap Estim Creat Clear Calc Estimated GFR Random Glucose Lactic Acid 1.2 Calcium Magnesium Total Bilirubin Direct Bilirubin AST ALT Alkaline Phosphatase C-Reactive Protein Total Protein Albumin Urine Color Yellow Urine Appearance Clear Urine pH 6.5 Ur Specific [place] >= 1.030 H Urine Protein Trace Urine Glucose (UA) Negative Urine Ketones Negative Urine Blood Negative Urine Nitrite Negative Ur Leukocyte Esterase Negative Urine Opiates Screen Urine Fentanyl Screen Ur Barbiturates Screen Ur Phencyclidine Scrn Ur Amphetamines Screen U Benzodiazepines Scrn Urine Cocaine Screen U Marijuana (THC) Screen COVID-19 ([facility]) Negative COVID-19 Clin Com See Note 01/31/23 02/01/23 02/01/23 22:50 05:34 05:34 MCV 90.0 MCH 29.2 MCHC 32.4 RDW 13.5 Plt Count 422 H MPV 9.3 L Immature Gran % (Auto) 0.6 H Neut % (Auto) 68.4 Lymph % (Auto) 19.6 L [place] % (Auto) 8.7 Eos % (Auto) 2.2 Baso % (Auto) 0.5 Lymph # (Auto) 2.6 [place] # (Auto) 1.2 Eos # (Auto) 0.3 Baso # (Auto) 0.1 Abs Immat Gran (auto) 0.08 H Absolute Neuts (auto) 9.1 H Absolute Nucleated RBC 0.000 Nucleated RBC % (auto) 0.0 ESR Anion Gap 13 Estim Creat Clear Calc 132.6 Estimated GFR > 60 Random Glucose 106 Lactic Acid Calcium 8.1 L D Magnesium Total Bilirubin Direct Bilirubin AST ALT Alkaline Phosphatase C-Reactive Protein Total Protein Albumin Urine Color Urine Appearance Urine pH Ur Specific [place] Urine Protein Urine Glucose (UA) Urine Ketones Urine Blood Urine Nitrite Ur Leukocyte Esterase Urine Opiates Screen POSITIVE H Urine Fentanyl Screen POSITIVE H Ur Barbiturates Screen Not Detected Ur Phencyclidine Scrn Not Detected Ur Amphetamines Screen Not Detected U Benzodiazepines Scrn Not Detected Urine Cocaine Screen POSITIVE H U Marijuana (THC) Screen Not Detected COVID-19 ([facility]) COVID-19 Clin Com Assessment and Plan (1) Sepsis: Status: Acute (2) Cellulitis: Status: Acute (3) Substance use disorder: Status: Acute Plan This is a 37-year-old male with pertinent history of substance use disorder, tobacco use disorder who presents to the emergency department for evaluation of right foot pain. 1.Sepsis due to right 2nd toe cellulitis - elevated CRP - continue vanco and Vishal(2) - ID consult question further imaging or treating for osteo 2.Substance use disorders - seen by add Addiction Medicine - methadone dose verified and ordered Lovenox 40 mg daily Full code requires ongoing hospitalization for IV antibiotics to treat cellulitis question osteomyelitis Time Spent With Patient Time: Total time managing care of this patient today ____ minutes. Quality Stroke Does the patient have a stroke diagnosis?: No VTE Prior VTE?: No VTE Risk Level:: Medical - moderate - high VTE Device Contraindication: Treatment Not Indicated VTE Drug Contraindication: N/A - Med Ordered
--- NOTE | 2023-02-01 14:14 | HO.ADDICTCON ---
History of Present Illness Date of Service: 02/01/2023 Chief Complaint: Foot infection Reason for Consult: OUD HPI Narrative: Patient is a 37 year old male currently medically admitted with cellulitis Consult requested as patient with +UDS and engaged with OTP. 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 Did receive methadone dose for today. Recently connected with [facility]. Review of Systems Constitutional: Reports as per HPI Diagnostics Vital Signs (24Hr): Vital Signs - 24 hr 01/31/23 19:26 01/31/23 22:40 02/01/23 00:27 Temperature 97 F 99.4 F Pulse Rate 97 98 92 Respiratory Rate 20 16 16 Blood Pressure 148/92 H 135/92 H 142/93 H Pulse Oximetry 97 96 96 Oxygen Delivery Method Room Air Room Air Room Air 01/31/23 23:55 02/01/23 03:43 02/01/23 07:43 Temperature 99.4 F 99.8 F Pulse Rate 86 89 85 Respiratory Rate 16 18 18 Blood Pressure 136/79 143/104 H 139/76 Pulse Oximetry 97 96 98 Oxygen Delivery Method Room Air Room Air Room Air BMI result Body Mass Index 25.0 Labs 02/01/23 05:34 02/01/23 05:34 Labs: Laboratory Results - last 48 hr 01/31/23 01/31/23 01/31/23 20:08 20:08 20:08 WBC 17.3 H RBC 4.23 L Hgb 12.2 L Hct 37.6 L MCV 88.9 MCH 28.8 MCHC 32.4 RDW 13.2 Plt Count 432 H MPV 9.0 L Immature Gran % (Auto) 0.5 H Neut % (Auto) 77.8 H Lymph % (Auto) 13.3 L [place] % (Auto) 6.9 Eos % (Auto) 1.2 Baso % (Auto) 0.3 Lymph # (Auto) 2.3 [place] # (Auto) 1.2 Eos # (Auto) 0.2 Baso # (Auto) 0.1 Abs Immat Gran (auto) 0.09 H Absolute Neuts (auto) 13.5 H Absolute Nucleated RBC 0.000 Nucleated RBC % (auto) 0.0 ESR 29 H Sodium 140 Potassium 3.7 Chloride 100 Carbon Dioxide 29 Anion Gap 15 BUN 12 Creatinine 0.77 Estim Creat Clear Calc 123.9 Estimated GFR > 60 Random Glucose 109 Lactic Acid Calcium 8.8 Magnesium 2.1 Total Bilirubin 0.5 Direct Bilirubin 0.2 AST 36 ALT 28 Alkaline Phosphatase 95 C-Reactive Protein 9.51 H Total Protein 6.9 Albumin 4.0 Urine Color Urine Appearance Urine pH Ur Specific [place] Urine Protein Urine Glucose (UA) Urine Ketones Urine Blood Urine Nitrite Ur Leukocyte Esterase Urine Opiates Screen Urine Fentanyl Screen Ur Barbiturates Screen Ur Phencyclidine Scrn Ur Amphetamines Screen U Benzodiazepines Scrn Urine Cocaine Screen U Marijuana (THC) Screen COVID-19 ([facility]ORGE) COVID-19 [employer] Com 01/31/23 01/31/23 01/31/23 20:08 20:08 22:50 WBC RBC Hgb Hct MCV MCH MCHC RDW Plt Count MPV Immature Gran % (Auto) Neut % (Auto) Lymph % (Auto) [place] % (Auto) Eos % (Auto) Baso % (Auto) Lymph # (Auto) [place] # (Auto) Eos # (Auto) Baso # (Auto) Abs Immat Gran (auto) Absolute Neuts (auto) Absolute Nucleated RBC Nucleated RBC % (auto) ESR Sodium Potassium Chloride Carbon Dioxide Anion Gap BUN Creatinine Estim Creat Clear Calc Estimated GFR Random Glucose Lactic Acid 1.2 Calcium Magnesium Total Bilirubin Direct Bilirubin AST ALT Alkaline Phosphatase C-Reactive Protein Total Protein Albumin Urine Color Yellow Urine Appearance Clear Urine pH 6.5 Ur Specific [place] >= 1.030 H Urine Protein Trace Urine Glucose (UA) Negative Urine Ketones Negative Urine Blood Negative Urine Nitrite Negative Ur Leukocyte Esterase Negative Urine Opiates Screen Urine Fentanyl Screen Ur Barbiturates Screen Ur Phencyclidine Scrn Ur Amphetamines Screen U Benzodiazepines Scrn Urine Cocaine Screen U Marijuana (THC) Screen COVID-19 ([facility]ORGE) Negative COVID-19 [employer] Com See Note 01/31/23 02/01/23 02/01/23 22:50 05:34 05:34 WBC 13.3 H RBC 3.91 L Hgb 11.4 L Hct 35.2 L MCV 90.0 MCH 29.2 MCHC 32.4 RDW 13.5 Plt Count 422 H MPV 9.3 L Immature Gran % (Auto) 0.6 H Neut % (Auto) 68.4 Lymph % (Auto) 19.6 L [place] % (Auto) 8.7 Eos % (Auto) 2.2 Baso % (Auto) 0.5 Lymph # (Auto) 2.6 [place] # (Auto) 1.2 Eos # (Auto) 0.3 Baso # (Auto) 0.1 Abs Immat Gran (auto) 0.08 H Absolute Neuts (auto) 9.1 H Absolute Nucleated RBC 0.000 Nucleated RBC % (auto) 0.0 ESR Sodium 141 Potassium 3.8 Chloride 105 Carbon Dioxide 27 Anion Gap 13 BUN 11 Creatinine 0.72 Estim Creat Clear Calc 132.6 Estimated GFR > 60 Random Glucose 106 Lactic Acid Calcium 8.1 L D Magnesium Total Bilirubin Direct Bilirubin AST ALT Alkaline Phosphatase C-Reactive Protein Total Protein Albumin Urine Color Urine Appearance Urine pH Ur Specific [place] Urine Protein Urine Glucose (UA) Urine Ketones Urine Blood Urine Nitrite Ur Leukocyte Esterase Urine Opiates Screen POSITIVE H Urine Fentanyl Screen POSITIVE H Ur Barbiturates Screen Not Detected Ur Phencyclidine Scrn Not Detected Ur Amphetamines Screen Not Detected U Benzodiazepines Scrn Not Detected Urine Cocaine Screen POSITIVE H U Marijuana (THC) Screen Not Detected COVID-19 ([facility]ORGE) COVID-19 Clin Com Imaging Radiology Impressions: ITS Impressions Foot X-Ray 01/31/23 19:54 IMPRESSION: No radiographic evidence of osteomyelitis. However, early osteomyelitis can be radiographically occult, and if there is clinical suspicious for osteomyelitis, correlation with an MR could be obtain. Foot X-Ray 01/31/23 19:54 IMPRESSION: No radiographic evidence of osteomyelitis. However, early osteomyelitis can be radiographically occult, and if there is clinical suspicious for osteomyelitis, correlation with an MR could be obtain. Foot CT 01/31/23 22:36 IMPRESSION: 1. Mild plantar skin thickening and subcutaneous edema. No organized fluid collection or abscess formation. 2. No acute osseous abnormality. Mental Status Exam Mental Status Exam Patient Appearance: Unkempt Mood Description: Calm Affect Description: Calm Medications Medications Current Medications Acetaminophen (Acetaminophen 325 Mg Tablet) 650 mg PO Q6H PRN PRN Reason: Pain, Mild (Pain Scale 1-3) Enoxaparin Sodium (Enoxaparin Sodium 40 Mg/0.4 Ml Syringe) 40 mg SUBCUT Q24H [facility] Last Admin: 01/31/23 22:24 Dose: 40 mg Vancomycin HCl 1,250 mg/ (Sodium Chloride) 250 mls @ 166.667 mls/hr IV Q12H [facility] Last Infusion: 02/01/23 11:36 Dose: Infused Melatonin (Melatonin 3 Mg Tablet) 6 mg PO BEDTIME PRN PRN Reason: Insomnia Methadone HCl (Methadone Hcl 20 Mg/2 Ml Oral.Conc) 50 mg PO DAILY [facility] Last Admin: 02/01/23 12:51 Dose: 50 mg Ondansetron HCl (Ondansetron Hcl 4 Mg/2 Ml Vial) 4 mg IVPUSH Q8H PRN PRN Reason: Nausea and Vomiting Oxycodone HCl (Oxycodone Hcl Immed Release 5 Mg Tablet) 10 mg PO Q6H PRN PRN Reason: Pain, Moderate (Pain Scale 4-6 Pharmacy Consult (Consult Rx Vancomycin Dosing) 1 each MISCELLANE DAILY PRN PRN Reason: Consult order Sodium Chloride (0.9 % Sodium Chloride Flush 3 Ml Syringe) 3 ml IVFLUSH QSHIFT [facility] Last Admin: 02/01/23 09:10 Dose: 3 ml Allergies Allergies Allergy/AdvReac Type Severity Reaction Status Date / Time No Known Allergies Allergy Verified 01/31/23 19:29 Assessment & Plan Assessment & Plan (1) Opioid use disorder: Status: Acute Code(s): F11.90 - Opioid use, unspecified, uncomplicated Assessment and Plan: methadone already ordered patient allowed to rest will follow up tomorrow Total time managing care of this patient today _15___ minutes. PMFSH Past Medical History Medical History Drug abuse Heroin abuse Tobacco use (~01/31/23) Surgical History Surgical History Surgical history unknown Social History Social History Household Members: None Household Members Other:: Homeless Housing: Homeless Do you presently have visiting nurse or other home services: No Unable to assess alcohol history related to: Unable to respond Alcohol intake: never Patient Tobacco Use Status: Current everyday Tobacco user Tobacco use type: Cigarette Substance Use Type: Crack/Cocaine, Heroin and Opiates service: No
--- NOTE | 2023-02-01 15:40 | W.PM.IDCN ---
History of Present Illness Data of Consult Service Date: 02/01/23 Requesting physician: Micheal Toure Primary Care Provider: None Physician HPI Reason for consult: right foot redness He presents with right foot redness and swelling for last two days. He denies being out in or walking in snow. He has CT scan no osteomyelitis. Review of Systems Review of Systems: Yes all other systems are reviewed and are negative PMFSH Past Medical History Medical History Drug abuse Heroin abuse Tobacco use (~01/31/23) Family History Family history: reviewed and not pertinent Surgical History Surgical History Surgical history unknown Social History Social History Household Members: None Household Members Other:: Homeless Housing: Homeless Do you presently have visiting nurse or other home services: No Unable to assess alcohol history related to: Unable to respond Alcohol intake: never Patient Tobacco Use Status: Current everyday Tobacco user Tobacco use type: Cigarette Substance Use Type: Crack/Cocaine, Heroin and Opiates service: No Meds Allergies Allergy/AdvReac Type Severity Reaction Status Date / Time No Known Allergies Allergy Verified 01/31/23 19:29 Active Medications: Current Medications Acetaminophen (Acetaminophen 325 Mg Tablet) 650 mg PO Q6H PRN PRN Reason: Pain, Mild (Pain Scale 1-3) Enoxaparin Sodium (Enoxaparin Sodium 40 Mg/0.4 Ml Syringe) 40 mg SUBCUT Q24H [facility] Last Admin: 01/31/23 22:24 Dose: 40 mg Vancomycin HCl 1,250 mg/ (Sodium Chloride) 250 mls @ 166.667 mls/hr IV Q12H [facility] Last Infusion: 02/01/23 11:36 Dose: Infused Melatonin (Melatonin 3 Mg Tablet) 6 mg PO BEDTIME PRN PRN Reason: Insomnia Methadone HCl (Methadone Hcl 20 Mg/2 Ml Oral.Conc) 50 mg PO DAILY [facility] Last Admin: 02/01/23 12:51 Dose: 50 mg Ondansetron HCl (Ondansetron Hcl 4 Mg/2 Ml Vial) 4 mg IVPUSH Q8H PRN PRN Reason: Nausea and Vomiting Oxycodone HCl (Oxycodone Hcl Immed Release 5 Mg Tablet) 10 mg PO Q6H PRN PRN Reason: Pain, Moderate (Pain Scale 4-6 Pharmacy Consult (Consult Rx Vancomycin Dosing) 1 each MISCELLANE DAILY PRN PRN Reason: Consult order Sodium Chloride (0.9 % Sodium Chloride Flush 3 Ml [facility]ringe) [facility] Last Admin: 02/01/23 15:28 Dose: 3 ml Home Medications Medication Instructions Recorded Confirmed Last Taken Type methadone 10 mg/mL injection 45 mg 02/01/23 Unknown History solution Physical Exam Vital Signs: Vital Signs: Last Vital Signs Temp 99.8 F 02/01/23 07:43 Pulse 85 02/01/23 07:43 Resp 18 02/01/23 07:43 BP 139/76 02/01/23 07:43 Pulse Ox 98 02/01/23 07:43 O2 Del Method 02/01/23 07:43 BMI result Body Mass Index 25.0 Const: General: cooperative HEENT: Head: Yes normal to inspection Face and sinus: Yes normal facial exam Mouth: Normal oral and palatal mucosa present Teeth and gingiva: dentition normal Eyes: General: appearance normal, both eyes and all related structures Pupils: Equal, round and reactive pupils present Resp: Effort & Inspection: normal respiratory effort Cardio: Rate: regular rate Rhythm: regular rhythm GI: Palpation (GI): Soft to palpation and nontender : General: Yes no CVA tenderness Back/Spine/Pelvis: Back: no CVA tenderness Skin: General skin exam: no rashes or lesions noted Neuro: General: moves all extremities Cranial nerves: Yes Equal, round and reactive pupils present Extrem: Other: redness right foot especially right second toe Psych: Appearance: grossly normal Results Labs 02/01/23 05:34 02/01/23 05:34 Labs: Short CBC 01/31/23 02/01/23 Range/Units 20:08 05:34 WBC 17.3 H 13.3 H (4.8-10.8) X10*3/uL Hgb 12.2 L 11.4 L (14.0-18.0) g/dl Hct 37.6 L 35.2 L (42.0-52.0) % Plt Count 432 H 422 H (160-400) X10*3/uL BMP 01/31/23 02/01/23 20:08 05:34 Sodium 140 141 Potassium 3.7 3.8 Chloride 100 105 Carbon Dioxide 29 27 BUN 12 11 Creatinine 0.77 0.72 Calcium 8.8 8.1 L D Liver Function 01/31/23 Range/Units 20:08 Total Bilirubin 0.5 (0.0-1.0) mg/dL Direct Bilirubin 0.2 (0.0-0.5) mg/dL AST 36 (5-37) U/L ALT 28 (0-40) U/L Alkaline Phosphatase 95 (39-117) U/L Albumin 4.0 (3.5-5.0) g/dL Urine 01/31/23 Range/Units 22:50 Urine Color Yellow Urine Appearance Clear Urine pH 6.5 (5.0-9.0) Ur Specific [place] >= 1.030 H (1.005-1.025) Urine Protein Trace (Neg-Trace) mg/dL Urine Glucose (UA) Negative (Negative) mg/dL Assessment and Plan (1) Cellulitis: Status: Acute This appears to be frostbite with some cellulitis He doesnt have high glucose as concern. (2) Sepsis: Status: Acute (3) Substance use disorder: Status: Acute Plan Doxycycline and Augmentin for fourteen days Follow surgery Check HIV and Hepatitis C. Time Spent With Patient Time: Total time managing care of this patient today ____ minutes.
[2023-02-01 15:54] VITALS: BP 137/85; PULSE 66; RESP 16; TEMP 37.2; O2SAT 99
[2023-02-01 19:45] VITALS: BP 120/67; PULSE 74; RESP 15; TEMP 37; O2SAT 96
[2023-02-01] MEDS: Enoxaparin Sodium 40 MG/0.4 ML SYRINGE SUBCUT (21:35)
[2023-02-01] MEDS: oxyCODONE HCl Immed Release 5 MG TABLET 10 MG PO (23:08)
[2023-02-02 03:37] VITALS: BP 134/81; PULSE 65; RESP 16; TEMP 36.4; O2SAT 97
[2023-02-02 07:24] LABS: MANUAL DIFF FLAG NO
[2023-02-02] MEDS: methADONE HCl 20 MG/2 ML ORAL.CONC 50 MG PO (07:32)
[2023-02-02 07:38] LABS: Basophils Absolute Auto 0.1 X10*3/uL (0.0-0.2); Basophils Percent Auto 0.5 % (0-2); Eosinophils Absolute Auto 0.3 X10*3/uL (0.0-0.4); Eosinophils Percent Auto 2.8 % (0-4); Hematocrit 39.7 % (42.0-52.0); Hemoglobin 12.6 g/dl (14.0-18.0); Imm Gran Abs Auto 0.05 X10*3/uL (0.00-0.03); Imm Gran Pct Auto 0.5 % (0.0-0.4); Lymphocytes Absolute Auto 2.3 X10*3/uL (1.2-4.9); Mean Corpuscular HGB Conc 31.7 g/dl (31.0-36.0); Mean Corpuscular Hemoglobin 28.5 pg (27.0-33.0); Mean Corpuscular Volume 89.8 fL (80.0-98.0); Monocytes Absolute Auto 0.9 X10*3/uL (0.1-1.2); Monocytes Percent Auto 8.1 % (2-11); Neutrophils Absolute Auto 7.3 x10*3/uL (2.0-8.3); Neutrophils Percent Auto 67.1 % (45-73); Platelet Count 449 X10*3/uL (160-400); Red Blood Count 4.42 X10*6/uL (4.60-5.80); Red Cell Distribution Width 13.6 % (11.0-16.0); White Blood Count 10.9 X10*3/uL (4.8-10.8)
[2023-02-02] MEDS: oxyCODONE HCl Immed Release 5 MG TABLET 10 MG PO (07:39)
[2023-02-02 07:41] LABS: Alanine Aminotransferase 21 U/L (0-40); Albumin Level 3.5 g/dL (3.5-5.0); Alkaline Phosphatase 80 U/L (39-117); Anion Gap 14 (12-20); Aspartate Amino Transferase 19 U/L (5-37); Bilirubin Total 0.4 mg/dL (0.0-1.0); Blood Urea Nitrogen 10 mg/dL (9-16); Calcium 8.7 mg/dL (8.4-10.2); Carbon Dioxide 27 mmol/L (22-29); Chloride 105 mmol/L (96-108); Creatinine Clr Calc Pharmacy 132.6; Estimated Glomerular Filt Rate > 60; Glucose Fasting 103 mg/dL (60-99); Sodium 142 mmol/L (135-145); Total Protein 6.3 g/dL (6.5-8.0)
[2023-02-02] MEDS: 0.9 % Sodium Chloride Flush 3 ML SYRINGE IVFLUSH (07:41)
[2023-02-02 07:58] LABS: Vancomycin Trough 8.2 mcg/mL (10.0-20.0)
--- NOTE | 2023-02-02 08:09 | HE.PHANOTE ---
RE: vanco Pt's renal function is steady, trough on 02/02/23 came back at 8.3mg/L. Increased dose to 1000mg Q8H with predicted AUC 451mg/L, trough of 12.3. Next level to be drawn 02/03 @0800
--- NOTE | 2023-02-02 09:23 | MHC.CM.PN ---
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 IMM LEFT BEDSIDE FOR REVIEW CASE MANAGEMENT NAME AND DC PLAN WRITTEN ON WHITE BOARD IMM 02/02 FIRST ATTEMPT IN CHART
[2023-02-02] MEDS: vancomycin HCL 1,000 MG in 0.9 % Sodium Chloride 250 ML 270 MG IV (10:21)
--- NOTE | 2023-02-02 10:44 | MHC.CM.PN ---
POTENTIAL FOR PATIENT TO DC ON PO ABX. CASE MANAGEMENT FOLLOWING
--- NOTE | 2023-02-02 11:41 | PM.DS ---
DS: Providers Provider Date of Service: 02/02/23 Date of admission: 01/31/23 21:24 Date of discharge: 02/02/23 Primary care physician: None Physician Consults: 01/31/23 21:26 Addiction Medicine Routine Consulting Provider: Candace Goyal Reason for consultation: substance use disorder Consult to Care Team Routine Comment: Reason for consultation: substance use disorder 02/01/23 07:06 Consult to Infectious Diseases Stat Consulting Provider: Rita Bergman Reason for consultation: Query osteo Has provider been notified: Yes DS: Diagnosis Discharge Diagnosis (1) Opioid use disorder: Status: Acute DS: Summary Hospital Course Hospital Course: 37-year-old male with pertinent history of substance use disorder, tobacco use disorder who presents to the emergency department for evaluation of right foot pain.? Patient states he has had right foot pain for the last 2 days.? Associated with swelling and redness.? Patient denies fever, chills.? Denies similar complaints in the past.? Denies IV substance use disorder, states he sniffs cocaine and heroin.? Denies being on prescription medications and pertinent past medical history.? Patient states his right great toe has been hurting and it has gotten worse over the last 2 days, constant and without any relieving factors.? Also has associated generalized malaise.? He is homeless and his feet often get weight and patient stays in wet shoes and socks.? Patient denies chest discomfort, palpitations, shortness of breath, abdominal pain, changes in urinary bowel habits. Hospital Course Admitted to general medical floor and started on IV vancomycin. Patient currently does not have PCP and has a history of opiate abuse. Discussed with ID. No evidence of osteomyelitis on CT scan. Will DC on 14 day course of Augmentin and doxycycline. Patient encouraged abstinence from opiates and to seek primary care at [facility]. Patient is able to restate the risks of not completing therapy in of persistent opiate abuse. Time Spent with Patient Time attestation: Total time managing care of this patient today ____ minutes. Discharge coordination time: Greater than 30 minutes Quality: Safe Use of Opioids Does Pt have an Active Cancer Diagnosis on the Problem List?: No Quality: Stroke Does the patient have a stroke diagnosis?: No Physical Exam Vital Signs: Vital Signs: Last Vital Signs Temp 97.5 F 02/02/23 03:37 Pulse 65 02/02/23 03:37 Resp 16 02/02/23 03:37 BP 134/81 02/02/23 03:37 Pulse Ox 97 02/02/23 03:37 O2 Del Method 02/02/23 03:37 BMI result Body Mass Index 25.0 Const: Other: awake alert; appears uncomfortable in bed Resp: Other: clear to auscultation bilaterally no rales rhonchi wheezes Cardio: Other: no S4; positive S1-S2; no S3 murmurs rubs or gallops GI: Other: soft nontender nondistended normoactive bowel sounds Extrem: Other: ulcer wound at the base of the right 2nd toe with significant erythema; right extremity erythematous and warm DS: Data Data Completed and Pending Labs on day of discharge: Laboratory Results - last 24 hr 02/02/23 02/02/23 02/02/23 07:09 07:09 07:09 WBC 10.9 H RBC 4.42 L Hgb 12.6 L Hct 39.7 L MCV 89.8 MCH 28.5 MCHC 31.7 RDW 13.6 Plt Count 449 H MPV 9.0 L Immature Gran % (Auto) 0.5 H Neut % (Auto) 67.1 Lymph % (Auto) 21.0 [place] % (Auto) 8.1 Eos % (Auto) 2.8 Baso % (Auto) 0.5 Lymph # (Auto) 2.3 [place] # (Auto) 0.9 Eos # (Auto) 0.3 Baso # (Auto) 0.1 Abs Immat Gran (auto) 0.05 H Absolute Neuts (auto) 7.3 Absolute Nucleated RBC 0.000 Nucleated RBC % (auto) 0.0 Sodium 142 Potassium 4.0 Chloride 105 Carbon Dioxide 27 Anion Gap 14 BUN 10 Creatinine 0.72 Estim Creat Clear Calc 132.6 Estimated GFR > 60 Fasting Glucose 103 H Calcium 8.7 D Total Bilirubin 0.4 AST 19 ALT 21 Alkaline Phosphatase 80 Total Protein 6.3 L Albumin 3.5 Vancomycin Trough 8.2 L Preliminary micro results at discharge 01/31/23 20:17 Blood Culture - Preliminary Blood - Venous No growth after 24 hours. 01/31/23 20:08 Blood Culture - Preliminary Blood - Venous No growth after 24 hours. Discharge Plan Discharge Anticipated Discharge Date/Time: 03/07/23 11:36 Patient Disposition: Home, Self-Care Discharge Diagnosis: cellulitis Referrals: Physician,None [Primary Care Provider] - 1 Week Discharge Medications: New amoxicillin-pot clavulanate 875-125 mg tablet 1 tab PO BID Qty: 28 0RF doxycycline hyclate 100 mg tablet 100 mg PO BID 14 Days Qty: 28 0RF Continued methadone 10 mg/mL Solution 45 mg Discharge Orders: Discharge Order (Routine); Ordered 02/02/23 Ordered By: Micheal Toure Diet: Advance to usual diet Activity on Discharge: As tolerated Stand Alone Forms: Patient Portal Discharge page Care Plan Goals: complete course of Augmentin twice daily for 10 days along with doxycycline twice daily for 10 days. Health Concerns: He did find a PCP. Call [facility] to arrange new visit with new PCP Plan of Treatment: Encouraged abstinence from opioids Assessment: see discharge summary
--- NOTE | 2023-02-02 11:44 | MHC.CM.PN ---
PATIENT IS DISCHARGED. RN AWARE OF PLAN.
--- NOTE | 2023-02-02 11:56 | MHC.CM.PN ---
PATIENT TELLS THIS BLENDING TECHNICIAN THAT HE NEEDS TRANSPORT TO HIS BANK AND THEN TO HIS APARTMENT TO PAYTHE RENT PATIENT INFORMED THAT SHUTTLE CAN ONLY GO TO ONE STOP PATIENT REPORTS WELL, I NEED MY MONEY, SO THE BANK IT IS WHEN ASKED FOR ADDRESS OF APARTMENT, PATIENT DOES NOT RECALL. SHUTTLE SCHEDULED FOR 12:15 VOUCHER PROVIDED. RN AWARE OF PLAN
--- NOTE | 2023-02-02 12:02 | PC.NURSE ---
Pt AxOx3 d/c home with no svcs. Pt denies chest pain, sob or headache. Pt IV was removed. Pt ambulate with w/c to the lobby accompany by the staff. Pt belongings was given.
== END 2023-02-02 12:05 | disposition home or self-care (01) | DRG 872 ==
LOC: HO.ED 21:44 → HO.EDOVER 21:45 → HO.S3 02-01 01:47
PROVIDERS: Nurse Practitioner Family; Admitting Provider Student in an Organized Health Care Education/Training Program; Emergency Provider Student in an Organized Health Care Education/Training Program; Visit Provider Hospitalist
DX: A41.9 Sepsis, unspecified organism (principal); F11.20 Opioid dependence, uncomplicated; L03.031 Cellulitis of right toe; F17.210 Nicotine dependence, cigarettes, uncomplicated; Z20.822 Contact with and (suspected) exposure to COVID-19; Z59.02 Unsheltered homelessness; Z71.6 Tobacco abuse counseling; Z79.899 Other long term (current) drug therapy
CPT/HCPCS: 36415; 73620; 73701; 80048; 80053; 80076; 80202; 80307; 81003; 83605; 83735; 85025; 85652; 86140; 87040; 87635; 93005; 99285; J1650; J2543; J3370; J3371; Q9967

== ENCOUNTER 2023-02-02 22:01 | Inpatient (IN) | payer MEDICARE, MEDICAID, SELFPAY ==
--- NOTE | ~2023-02-02 | MR_ITS ---
EXAMINATION: MR FOOT WITHOUT AND WITH CONTRAST, RIGHT CLINICAL INFORMATION: Right foot cellulitis. Concern for osteomyelitis. COMPARISON: Multiple priors, most recent right foot CT dated 01/31/2023. TECHNIQUE: Multisequence MR imaging of the right foot was obtained before and after the IV administration of 7.5 mL Gadavist contrast on a high-field strength scanner. FINDINGS: Along the dorsal aspect of the 2nd and 3rd metatarsophalangeal joints, there is a complex, peripherally enhancing fluid collection measuring approximately 2.7 x 2.3 x 0.7 cm with peripheral postcontrast enhancement as well as significant subcutaneous edema and enhancement as well as adjacent fat stranding. Findings are more prominent when compared to the prior CT. This is consistent with cellulitis and abscess formation. No underlying marrow edema or enhancement to suggest acute osteomyelitis. No abnormal marrow signal. No stress reaction or fracture. No concerning lytic or blastic osseous lesion. The visualized flexor and extensor tendons are intact. No transverse tear or tendon retraction. Intact Lisfranc ligament. Dorsal subcutaneous edema extending proximally along the foot without an additional fluid collection. MR/MR foot RT wo/w con IMPRESSION: Cellulitis and abscess formation along the dorsal aspect of the 2nd and 3rd metatarsophalangeal joints, more prominent when compared to the prior CT. No underlying osteomyelitis.
--- NOTE | 2023-02-02 22:04 | ECG_ITS ---
Test Reason : dizziness Blood Pressure : / mmHG Vent. Rate : 091 BPM Atrial Rate : 091 BPM P-R Int : 148 ms QRS Dur : 078 ms QT Int : 350 ms P-R-T Axes : 072 033 053 degrees QTc Int : 430 ms Normal sinus rhythm Normal ECG When compared with ECG of 31-JAN-2023 22:34, Nonspecific T wave abnormality no longer evident in Anterior leads Referred By: Generic ED Physician Electronically Signed By:BERNARDO ENGLISH
[2023-02-02 22:05] VITALS: BP 144/96; PULSE 97; RESP 18; TEMP 36.4; O2SAT 100; BMI 23.1
[2023-02-02 22:24] LABS: MANUAL DIFF FLAG NO
[2023-02-02 22:29] LABS: Basophils Absolute Auto 0.1 X10*3/uL (0.0-0.2); Basophils Percent Auto 0.3 % (0-2); Eosinophils Absolute Auto 0.1 X10*3/uL (0.0-0.4); Eosinophils Percent Auto 0.6 % (0-4); Hematocrit 37.9 % (42.0-52.0); Hemoglobin 12.3 g/dl (14.0-18.0); Imm Gran Abs Auto 0.14 X10*3/uL (0.00-0.03); Imm Gran Pct Auto 0.7 % (0.0-0.4); Lymphocytes Absolute Auto 3.2 X10*3/uL (1.2-4.9); Lymphocytes Percent Auto 16.7 % (20-40); Mean Corpuscular HGB Conc 32.5 g/dl (31.0-36.0); Mean Corpuscular Hemoglobin 28.9 pg (27.0-33.0); Mean Corpuscular Volume 89.2 fL (80.0-98.0); Mean Platelet Volume 8.7 fL (9.4-12.4); Monocytes Percent Auto 5.4 % (2-11); Neutrophils Absolute Auto 14.7 x10*3/uL (2.0-8.3); Neutrophils Percent Auto 76.3 % (45-73); Platelet Count 490 X10*3/uL (160-400); Red Blood Count 4.25 X10*6/uL (4.60-5.80); Red Cell Distribution Width 13.6 % (11.0-16.0); White Blood Count 19.3 X10*3/uL (4.8-10.8)
[2023-02-02 22:39] LABS: COVID-19 Test Negative (Negative); IDNOW Serial# 6674DD1D
[2023-02-02 22:40] LABS: Amphetamine Screen Urine Not Detected (Not Detect); Barbiturates, Urine Not Detected (Not Detect); Benzodiazepines Screen Urine Not Detected (Not Detect); Cannabinoid Screen Urine Not Detected (Not Detect); Cocaine Screen Urine POSITIVE (Not Detect); Fentanyl, urine POSITIVE (Not Detect); Opiate Screen Urine POSITIVE (Not Detect); Phencyclidine Screen Urine Not Detected (Not Detect)
[2023-02-02 22:42] LABS: Alanine Aminotransferase 24 U/L (0-40); Albumin Level 4.1 g/dL (3.5-5.0); Alkaline Phosphatase 84 U/L (39-117); Anion Gap 15 (12-20); Aspartate Amino Transferase 28 U/L (5-37); Bilirubin Direct < 0.2 mg/dL (0.0-0.5); Bilirubin Total 0.3 mg/dL (0.0-1.0); Blood Urea Nitrogen 21 mg/dL (9-16); Carbon Dioxide 28 mmol/L (22-29); Chloride 102 mmol/L (96-108); Creatinine Clr Calc Pharmacy 71.2; Estimated Glomerular Filt Rate > 60; Glucose Random 110 mg/dL (60-115); Lipase 16 U/L (8-78); Sodium 141 mmol/L (135-145); Total Protein 7.2 g/dL (6.5-8.0)
[2023-02-02 22:49] LABS: Troponin-I High Sensitivity 3.5 ng/L (<3.5-35.0)
--- NOTE | 2023-02-03 00:33 | ED.DIZZY ---
HPI - Dizziness General Chief Complaint: Dizziness Stated Complaint: Dizziness/Nauseas Time Seen by Provider: 02/03/23 00:05 Source: patient Mode of arrival: ambulatory Limitations: no limitations History of Present Illness HPI Narrative: Patient homeless history of substance abuse smoker walks long hours had a small blister on the right 2nd toe about 6 days ago got worse was admitted on 01/31 treated with oral antibiotic discharged yesterday comes back as patient is not feeling good nauseated dizzy weak and right foot seems to be worse than when he came. Patient has not able to take his doxycycline yesterday. Had x-ray and CT of right foot done which did not show any bony erosion in ER obvious pus discharge from the foot with surrounding warmth and redness Related Data Home Medications Medication Instructions Recorded Confirmed methadone 10 mg/mL injection 45 mg 02/01/23 solution Allergies Allergy/AdvReac Type Severity Reaction Status Date / Time No Known Allergies Allergy Verified 02/03/23 04:20 Review of Systems Review of Systems: Yes all other systems are reviewed and are negative [facility] Past Medical History Medical History Drug abuse Heroin abuse Tobacco use (~01/31/23) Surgical History Surgical history unknown Social History Social History Household Members: None Household Members Other:: Homeless Housing: Homeless Do you presently have visiting nurse or other home services: No Unable to assess alcohol history related to: Unable to respond Alcohol intake: unknown Patient Tobacco Use Status: Current everyday Tobacco user Tobacco use type: Cigarette Smoked in Last 30 Days: Yes Patient Interested in Nicotine Replacement: No Patient Given Instructions on How to Stop Smoking: Yes Date Education Initiated: 02/03/23 Second Hand Smoke Exposure: No Use of substances other than those prescribed or required for medical reasons: Yes Substance Use Type: Crack/Cocaine, Heroin and Opiates Currently Displaying Signs/Symptoms of Drug Intoxication Withdrawal: No Any prior treatment program specific to substance use: No Have you been hit, kicked, punched, or otherwise hurt by someone within the past year? If so, by whom?: No Do you feel safe in your current relationship?: No Current Relationship Is there a partner from a previous relationship who is making you feel unsafe now?: No Are you made to feel afraid or neglected: No Advance Directives: No Advance Directives Information Provided: Yes Do you have thoughts of harming others: None Do you have a plan to hurt others: No Plan Recently lost weight without trying: Unsure Eating poorly because of decreased appetite: No Nutrition Risks: Poor intake 0-25% >4 days service: No Current occupational status: unemployed Physical Exam Vital Signs: Vital Signs: Last Vital Signs Temp 98.3 F 02/03/23 02:00 Pulse 78 02/03/23 02:00 Resp 18 02/03/23 02:00 BP 121/82 02/03/23 02:00 Pulse Ox 96 02/03/23 02:00 O2 Del Method 02/03/23 02:00 BMI result Body Mass Index 23.1 Appearance: Alert. Oriented X3. No acute distress. Eyes: PERRLA, No Nystagmus ENT: Pharynx normal. Oral Mucosa moist Neck: Normal inspection. Neck supple. CVS: Normal heart rate and rhythm. Pulses normal. Respiratory: No respiratory distress. Equal air entry bilateral, no wheezing/rales/rhonchi Abdomen: Soft and nontender. Bowel sounds are present, no mass palpable, no CVA tenderness Skin: Skin warm and dry. Normal skin color. Normal skin turgor. Extremities: No lower extremity edema. No calf tenderness Neuro: Oriented X 3. No motor deficit. No sensory deficit.No cerebellar signs , cranial nerves II-XII intact Medications Administered Generic Name Dose Route Start Last Admin Trade Name Freq PRN Reason Stop Dose Admin Heparin Sodium (Porcine) 5,000 unit 02/03/23 06:00 02/03/23 05:19 Heparin Sodium,Porcine 5,000 Unit/Ml Vial SUBCUT Not Given Q8H ARLENE Discontinued Medications Generic Name Dose Route Start Last Admin Trade Name Freq PRN Reason Stop Dose Admin Piperacillin Sod/Tazobactam 50 mls @ 100 mls/hr 02/03/23 01:22 02/03/23 02:42 Sod 3.375 gm/ Sodium Chloride IV 02/03/23 01:51 Infused ONCE ONE Infusion Vancomycin HCl 1,500 mg/ 500 mls @ 333.333 mls/hr 02/03/23 01:45 02/03/23 03:59 Sodium Chloride IV 02/03/23 03:14 Infused ONCE ONE Infusion Medical Decision Making Medical Decision Making MDM Narrative: Patient infected right foot clinically involvement of the bones but patient's CT scan was negative 3 days ago patient may need MRI , pus discharge ++ which was sent for culture will admit patient for IV antibiotics and further evaluation. Patient WBC count has increased to 19,000 with left shift , normal lactic acid level Consult Healthcare Provider Management of the patient was discussed with: Hospitalist Lab Data [facility] Lab Attestation statement: I reviewed the patient's lab results. 02/02/23 22:20 02/02/23 22:20 Labs: Lab Results 02/02/23 02/02/23 02/02/23 Range/Units 22:20 22:20 22:20 WBC 19.3 H (4.8-10.8) X10*3/uL RBC 4.25 L (4.60-5.80) X10*6/uL Hgb 12.3 L (14.0-18.0) g/dl Hct 37.9 L (42.0-52.0) % MCV 89.2 (80.0-98.0) fL MCH 28.9 (27.0-33.0) pg MCHC 32.5 (31.0-36.0) g/dl RDW 13.6 (11.0-16.0) % Plt Count 490 H (160-400) X10*3/uL MPV 8.7 L (9.4-12.4) fL Immature Gran % (Auto) 0.7 H (0.0-0.4) % Neut % (Auto) 76.3 H (45-73) % Lymph % (Auto) 16.7 L (20-40) % [place] % (Auto) 5.4 (2-11) % Eos % (Auto) 0.6 (0-4) % Baso % (Auto) 0.3 (0-2) % Lymph # (Auto) 3.2 (1.2-4.9) X10*3/uL [place] # (Auto) 1.0 (0.1-1.2) X10*3/uL Eos # (Auto) 0.1 (0.0-0.4) X10*3/uL Baso # (Auto) 0.1 (0.0-0.2) X10*3/uL Abs Immat Gran (auto) 0.14 H (0.00-0.03) X10*3/uL Absolute Neuts (auto) 14.7 H (2.0-8.3) x10*3/uL Absolute Nucleated RBC 0.000 (0.0-0.012) X10*3/uL Nucleated RBC % (auto) 0.0 (0.0-0.2) /100WBC Sodium 141 (135-145) mmol/L Potassium 4.0 (3.3-5.1) mmol/L Chloride 102 (96-108) mmol/L Carbon Dioxide 28 (22-29) mmol/L Anion Gap 15 (12-20) BUN 21 H (9-16) mg/dL Creatinine 1.34 (0.5-1.4) mg/dL Estim Creat Clear Calc 71.2 Estimated GFR > 60 Random Glucose 110 (60-115) mg/dL Lactic Acid (0.5-2.0) mmol/L Calcium 9.0 (8.4-10.2) mg/dL Total Bilirubin 0.3 (0.0-1.0) mg/dL Direct Bilirubin < 0.2 (0.0-0.5) mg/dL AST 28 (5-37) U/L ALT 24 (0-40) U/L Alkaline Phosphatase 84 (39-117) U/L Troponin I High Sens 3.5 (<3.5-35.0) ng/L Total Protein 7.2 (6.5-8.0) g/dL Albumin 4.1 (3.5-5.0) g/dL Lipase 16 (8-78) U/L Urine Opiates Screen (Not Detect) Urine Fentanyl Screen (Not Detect) Ur Barbiturates Screen (Not Detect) Ur Phencyclidine Scrn (Not Detect) Ur Amphetamines Screen (Not Detect) U Benzodiazepines Scrn (Not Detect) Urine Cocaine Screen (Not Detect) U Marijuana (THC) Screen (Not Detect) COVID-19 (JORGE) (Negative) COVID-19 Clin Com 02/02/23 02/02/23 02/03/23 Range/Units 22:20 22:22 01:53 WBC (4.8-10.8) X10*3/uL RBC (4.60-5.80) X10*6/uL Hgb (14.0-18.0) g/dl Hct (42.0-52.0) % MCV (80.0-98.0) fL MCH (27.0-33.0) pg MCHC (31.0-36.0) g/dl RDW (11.0-16.0) % Plt Count (160-400) X10*3/uL MPV (9.4-12.4) fL Immature Gran % (Auto) (0.0-0.4) % Neut % (Auto) (45-73) % Lymph % (Auto) (20-40) % [place] % (Auto) (2-11) % Eos % (Auto) (0-4) % Baso % (Auto) (0-2) % Lymph # (Auto) (1.2-4.9) X10*3/uL [place] # (Auto) (0.1-1.2) X10*3/uL Eos # (Auto) (0.0-0.4) X10*3/uL Baso # (Auto) (0.0-0.2) X10*3/uL Abs Immat Gran (auto) (0.00-0.03) X10*3/uL Absolute Neuts (auto) (2.0-8.3) x10*3/uL Absolute Nucleated RBC (0.0-0.012) X10*3/uL Nucleated RBC % (auto) (0.0-0.2) /100WBC Sodium (135-145) mmol/L Potassium (3.3-5.1) mmol/L Chloride (96-108) mmol/L Carbon Dioxide (22-29) mmol/L Anion Gap (12-20) BUN (9-16) mg/dL Creatinine (0.5-1.4) mg/dL Estim Creat Clear Calc Estimated GFR Random Glucose (60-115) mg/dL Lactic Acid 0.7 (0.5-2.0) mmol/L Calcium (8.4-10.2) mg/dL Total Bilirubin (0.0-1.0) mg/dL Direct Bilirubin (0.0-0.5) mg/dL AST (5-37) U/L ALT (0-40) U/L Alkaline Phosphatase (39-117) U/L Troponin I High Sens (<3.5-35.0) ng/L Total Protein (6.5-8.0) g/dL Albumin (3.5-5.0) g/dL Lipase (8-78) U/L Urine Opiates Screen POSITIVE H (Not Detect) Urine Fentanyl Screen POSITIVE H (Not Detect) Ur Barbiturates Screen Not Detected (Not Detect) Ur Phencyclidine Scrn Not Detected (Not Detect) Ur Amphetamines Screen Not Detected (Not Detect) U Benzodiazepines Scrn Not Detected (Not Detect) Urine Cocaine Screen POSITIVE H (Not Detect) U Marijuana (THC) Screen Not Detected (Not Detect) COVID-19 (JORGE) Negative (Negative) COVID-19 Clin Com See Note Discharge Plan Discharge Clinical Impression: Complicated wound infection, Cellulitis and abscess of foot Patient Disposition: Admitted As Inpatient
[2023-02-03 02:00] VITALS: BP 121/82; PULSE 78; RESP 18; TEMP 36.8; O2SAT 96
[2023-02-03] MEDS: Piperacillin Sodium/Tazobactam 3.375 GM in 0.9 % Sodium Chloride 50 ML IV ×3 (02:09→15:32)
[2023-02-03 02:13] LABS: Lactic Acid 0.7 mmol/L (0.5-2.0)
[2023-02-03] MEDS: vancomycin HCL 1,500 MG in 0.9 % Sodium Chloride 500 ML 333.33 MG IV (02:19)
--- NOTE | 2023-02-03 02:34 | P.HPHOSP_ITS ---
History of Present Illness Date of Service: 02/03/23 Chief Complaint: Right foot pain 37-year-old male with a past medical history of tobacco dependence, substance abuse presented to the hospital with a chief complaint of right foot pain. Patient was recently admitted to the hospital for right foot pain and swelling concerning for cellulitis; given antibiotics-IV vancomycin; patient was subsequently discharged on doxycycline/Augmentin for 14 day course. Patient was discharged on 02/02/2023; presented back to the hospital with a chief complaint of worsening right foot pain and swelling; concerning for possible discharge from the foot; Patient denies any fevers and chills. Denies any nausea vomiting or diarrhea. Denies any falls or trauma. Denies any injury to the foot. Review of all other systems is negative except mentioned above ER course: Per ER team, patient noted to have right foot pain and swelling, more so on the proximal port of the 2nd toe with small abscess; concerning for cellulitis- suspected bone infection; patient was given IV vancomycin and Zosyn. Admitted to the hospital for further management. [facility] Medical History Drug abuse Heroin abuse Tobacco use (~01/31/23) Surgical History Surgical history unknown Social History Household Members: None Household Members Other:: Homeless Housing: Homeless Do you presently have visiting nurse or other home services: No Unable to assess alcohol history related to: Unable to respond Alcohol intake: never Patient Tobacco Use Status: Current everyday Tobacco user Tobacco use type: Cigarette Substance Use Type: Crack/Cocaine, Heroin and Opiates Advance Directives: No Advance Directives Information Provided: Yes service: No Current occupational status: unemployed Meds Allergies Allergy/AdvReac Type Severity Reaction Status Date / Time No Known Allergies Allergy Verified 01/31/23 19:29 Active Medications: Current Medications Vancomycin HCl 1,500 mg/ (Sodium Chloride) 500 mls @ 333.333 mls/hr IV ONCE ONE Stop: 02/03/23 03:14 Last Admin: 02/03/23 02:19 Dose: 333.33 mls/hr Pharmacy Consult (Consult Rx Vancomycin Dosing) 1 each MISCELLANE DAILY PRN PRN Reason: Consult order Home Medications Medication Instructions Recorded Confirmed Last Taken Type methadone 10 mg/mL injection 45 mg 02/01/23 Unknown History solution Physical Exam Vital Signs and Narrative: Vital Signs: Last Vital Signs Temp 98.3 F 02/03/23 02:00 Pulse 78 02/03/23 02:00 Resp 18 02/03/23 02:00 BP 121/82 02/03/23 02:00 Pulse Ox 96 02/03/23 02:00 O2 Del Method 02/03/23 02:00 BMI result Body Mass Index 23.1 Gen: Appears be in no acute distress HEENT: NCAT, Moist mucosa. Pulmonary: Vesicular breath sounds, fair air entry CVS: Normal S1-S2 Abdomen: BS+, Soft, Nontender Extremities: Warm well perfused; right foot noted of findings as shown in the picture below Neuro: Alert and awake. Results Labs 02/02/23 22:20 02/02/23 22:20 Labs: Laboratory Results - last 24 hr 02/02/23 02/02/23 02/02/23 22:20 22:20 22:20 MCV 89.2 MCH 28.9 MCHC 32.5 RDW 13.6 Plt Count 490 H MPV 8.7 L Immature Gran % (Auto) 0.7 H Neut % (Auto) 76.3 H Lymph % (Auto) 16.7 L [place] % (Auto) 5.4 Eos % (Auto) 0.6 Baso % (Auto) 0.3 Lymph # (Auto) 3.2 [place] # (Auto) 1.0 Eos # (Auto) 0.1 Baso # (Auto) 0.1 Abs Immat Gran (auto) 0.14 H Absolute Neuts (auto) 14.7 H Absolute Nucleated RBC 0.000 Nucleated RBC % (auto) 0.0 Anion Gap 15 Estim Creat Clear Calc 71.2 Estimated GFR > 60 Random Glucose 110 Lactic Acid Calcium 9.0 Total Bilirubin 0.3 Direct Bilirubin < 0.2 AST 28 ALT 24 Alkaline Phosphatase 84 Troponin I High Sens 3.5 Total Protein 7.2 Albumin 4.1 Lipase 16 Urine Opiates Screen Urine Fentanyl Screen Ur Barbiturates Screen Ur Phencyclidine Scrn Ur Amphetamines Screen U Benzodiazepines Scrn Urine Cocaine Screen U Marijuana (THC) Screen COVID-19 (JORGE) COVID-19 Clin Com 02/02/23 02/02/23 02/03/23 22:20 22:22 01:53 MCV MCH MCHC RDW Plt Count MPV Immature Gran % (Auto) Neut % (Auto) Lymph % (Auto) [place] % (Auto) Eos % (Auto) Baso % (Auto) Lymph # (Auto) [place] # (Auto) Eos # (Auto) Baso # (Auto) Abs Immat Gran (auto) Absolute Neuts (auto) Absolute Nucleated RBC Nucleated RBC % (auto) Anion Gap Estim Creat Clear Calc Estimated GFR Random Glucose Lactic Acid 0.7 Calcium Total Bilirubin Direct Bilirubin AST ALT Alkaline Phosphatase Troponin I High Sens Total Protein Albumin Lipase Urine Opiates Screen POSITIVE H Urine Fentanyl Screen POSITIVE H Ur Barbiturates Screen Not Detected Ur Phencyclidine Scrn Not Detected Ur Amphetamines Screen Not Detected U Benzodiazepines Scrn Not Detected Urine Cocaine Screen POSITIVE H U Marijuana (THC) Screen Not Detected COVID-19 (JORGE) Negative COVID-19 Clin Com See Note Assessment and Plan (1) Cellulitis: Status: Acute Plan 37-year-old male with a past medical history of tobacco dependence, substance abuse presented to the hospital with a chief complaint of right foot pain. Noted to have cellulitis/abscess. Admitted to the hospital for further management. Right foot cellulitis/abscess: Continue IV vancomycin and Zosyn Id consult Will obtain MRI given concerns for osteomyelitis. General surgery consult Pain control Opiate dependence: Patient on methadone. Addiction Medicine consult for confirming and resuming his home methadone. 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 Offered nicotine patch. DVT prophylaxis: Subcu heparin Code status: Full code Time Spent With Patient Time: Total time managing care of this patient today ____ minutes. Quality Stroke Does the patient have a stroke diagnosis?: No VTE Prior VTE?: No VTE Risk Level:: Medical - moderate - high VTE Device Contraindication: Treatment Not Indicated VTE Drug Contraindication: N/A - Med Ordered
--- NOTE | 2023-02-03 04:18 | PC.NURSE ---
Gave report to DEYANIRA Rene.
--- NOTE | 2023-02-03 04:23 | PC.NURSE ---
med rec completed
--- NOTE | 2023-02-03 04:23 | PC.NURSE ---
Pt states he goes to [facility] clinic to get his methadone. Unable to confirm at this time.
[2023-02-03 05:24] VITALS: BMI 23.5
--- NOTE | 2023-02-03 07:43 | HE.PHANOTE ---
RE: hector Pt left 02/02/23 ([id number]) and came back. Was dosed with 1g on 02/02 @1000; pt got another loading dose of 1500mg 02/04 @0200. Entered order for 1g Q8H with predicted AUC 451mg/L, trough of 12.3 mg/L. Level to be drawn 02/03 @1600 due to overnight timing before 4th dose.
[2023-02-03 07:44] VITALS: BP 133/85; PULSE 70; RESP 18; TEMP 37.3; O2SAT 98
--- NOTE | 2023-02-03 08:13 | HE.PHANOTE ---
Patient last received methadone 50 mg with our facility on 02/02. Patient was discharged and returned again the next day.
--- NOTE | 2023-02-03 08:15 | PHA.MEDREC ---
Pharmacy Consult ? Medication Reconciliation Pharmacy has completed the medication reconciliation.
[2023-02-03 08:22] LABS: MANUAL DIFF FLAG NO
[2023-02-03 08:37] LABS: Basophils Absolute Auto 0.1 X10*3/uL (0.0-0.2); Basophils Percent Auto 0.6 % (0-2); Eosinophils Absolute Auto 0.7 X10*3/uL (0.0-0.4); Eosinophils Percent Auto 7.6 % (0-4); Hematocrit 35.3 % (42.0-52.0); Hemoglobin 11.2 g/dl (14.0-18.0); Imm Gran Abs Auto 0.05 X10*3/uL (0.00-0.03); Imm Gran Pct Auto 0.5 % (0.0-0.4); Lymphocytes Absolute Auto 2.9 X10*3/uL (1.2-4.9); Lymphocytes Percent Auto 30.9 % (20-40); Mean Corpuscular HGB Conc 31.7 g/dl (31.0-36.0); Mean Corpuscular Hemoglobin 28.7 pg (27.0-33.0); Mean Corpuscular Volume 90.5 fL (80.0-98.0); Mean Platelet Volume 8.8 fL (9.4-12.4); Monocytes Absolute Auto 0.9 X10*3/uL (0.1-1.2); Monocytes Percent Auto 9.9 % (2-11); Neutrophils Absolute Auto 4.8 x10*3/uL (2.0-8.3); Neutrophils Percent Auto 50.5 % (45-73); Platelet Count 427 X10*3/uL (160-400); Red Cell Distribution Width 13.9 % (11.0-16.0); White Blood Count 9.4 X10*3/uL (4.8-10.8)
[2023-02-03 08:42] LABS: Anion Gap 14 (12-20); Blood Urea Nitrogen 18 mg/dL (9-16); Calcium 8.4 mg/dL (8.4-10.2); Carbon Dioxide 26 mmol/L (22-29); Chloride 106 mmol/L (96-108); Estimated Glomerular Filt Rate > 60; Glucose Random 82 mg/dL (60-115); Potassium 4.4 mmol/L (3.3-5.1); Sodium 142 mmol/L (135-145)
[2023-02-03 08:43] LABS: Estimated Glomerular Filt Rate > 60
[2023-02-03] MEDS: methADONE HCl 20 MG/2 ML ORAL.CONC 50 MG PO (09:14)
[2023-02-03] MEDS: 0.9 % Sodium Chloride Flush 3 ML SYRINGE IVFLUSH ×3 (09:14→21:47)
--- NOTE | 2023-02-03 11:02 | PM.EVENT ---
Event Note Date of Service: 02/03/23 Event Note: Patient was seen and evaluated this morning Reporting drainage and pain in his foot No fever overnight Pending MRI Continue IV antibiotics Pending surgery and ID evaluation Time Spent With Patient Time: Total time managing care of this patient today ____ minutes.
[2023-02-03] MEDS: vancomycin HCL 1,000 MG in 0.9 % Sodium Chloride 250 ML 270 MG IV ×2 (13:40→21:40)
--- NOTE | 2023-02-03 14:21 | PM.CNGS ---
History of Present Illness Consult details Consult date: 02/03/23 Narrative: Surgical consult for evaluation of right foot/2nd toe cellulitis. Patient presents here because of progression of pain and swelling of the affected extremity. Chart was reviewed and patient evaluated, including foot MRI Patient has very strong dorsalis pedis pulse of the right foot. His foot is grossly neurovascularly intact. The dorsum of the foot at the of the 2nd toe has moderate inflammation and swelling and superficial ulceration. On admission, patient[place] [id number]. Is now down to 9. A/P recommendations for continued local therapy in the form of IV antibiotics, local wound care, and elevation of the extremity. Further interventions and studies will be directed by the patient's clinical course and response to conservative therapy. [facility] Past Medical History Medical History Drug abuse Heroin abuse Tobacco use (~01/31/23) Surgical History Surgical History Surgical history unknown Social History Social History Household Members: None Household Members Other:: Homeless Housing: Homeless Do you presently have visiting nurse or other home services: No Unable to assess alcohol history related to: Unable to respond Alcohol intake: unknown Patient Tobacco Use Status: Current everyday Tobacco user Tobacco use type: Cigarette Smoked in Last 30 Days: Yes Patient Interested in Nicotine Replacement: No Patient Given Instructions on How to Stop Smoking: Yes Date Education Initiated: 02/03/23 Second Hand Smoke Exposure: No Use of substances other than those prescribed or required for medical reasons: Yes Substance Use Type: Crack/Cocaine, Heroin and Opiates Currently Displaying Signs/Symptoms of Drug Intoxication Withdrawal: No Any prior treatment program specific to substance use: No Have you been hit, kicked, punched, or otherwise hurt by someone within the past year? If so, by whom?: No Do you feel safe in your current relationship?: No Current Relationship Is there a partner from a previous relationship who is making you feel unsafe now?: No Are you made to feel afraid or neglected: No Advance Directives: No Advance Directives Information Provided: Yes Do you have thoughts of harming others: None Do you have a plan to hurt others: No Plan Recently lost weight without trying: Unsure Eating poorly because of decreased appetite: No Nutrition Risks: Poor intake 0-25% >4 days service: No Current occupational status: unemployed Meds Allergies Allergy/AdvReac Type Severity Reaction Status Date / Time No Known Allergies Allergy Verified 02/03/23 04:20 Active Medications: Current Medications Acetaminophen (Acetaminophen 325 Mg Tablet) 650 mg PO Q6H PRN PRN Reason: Pain, Mild (Pain Scale 1-3) Heparin Sodium (Porcine) (Heparin Sodium,Porcine 5,000 Unit/Ml Vial) 5,000 unit SUBCUT Q8H [facility] Last Admin: 02/03/23 13:41 Dose: Not Given Piperacillin Sod/Tazobactam (Sod 3.375 gm/ Sodium Chloride) 50 mls @ 12.5 mls/hr IV Q8H [facility] Last Infusion: 02/03/23 13:10 Dose: Infused Vancomycin HCl 1,000 mg/ (Sodium Chloride) 270 mls @ 270 mls/hr IV Q8H [facility] Last Admin: 02/03/23 13:40 Dose: 270 mls/hr Melatonin (Melatonin 3 Mg Tablet) 6 mg PO BEDTIME PRN PRN Reason: Insomnia Methadone HCl (Methadone Hcl 20 Mg/2 Ml Oral.Conc) 50 mg PO DAILY [facility] Last Admin: 02/03/23 09:14 Dose: 50 mg Pharmacy Consult (Consult Rx Vancomycin Dosing) 1 each MISCELLANE DAILY PRN PRN Reason: Consult order Senna (Sennosides 8.6 Mg Tablet) 17.2 mg PO BEDTIME PRN PRN Reason: Constipation Sodium Chloride (0.9 % Sodium Chloride Flush 3 Ml Syringe) 3 ml IVFLUSH QSHIFT [facility] Last Admin: 02/03/23 09:14 Dose: 3 ml Home Medications Medication Instructions Recorded Confirmed Last Taken Type methadone 10 mg/mL oral concentrate 50 mg PO DAILY 02/03/23 02/03/23 02/02/23 History Physical Exam Vital Signs: Vital Signs: Last Vital Signs Temp 99.1 F 02/03/23 07:44 Pulse 70 02/03/23 07:44 Resp 18 02/03/23 07:44 BP 133/85 02/03/23 07:44 Pulse Ox 98 02/03/23 07:44 O2 Del Method 02/03/23 07:44 BMI result Body Mass Index 23.5 Results Labs 02/03/23 07:43 02/03/23 07:43 Labs: Abnormal lab results 02/02/23 02/02/23 02/02/23 Range/Units 22:20 22:20 22:22 WBC 19.3 H (4.8-10.8) X10*3/uL RBC 4.25 L (4.60-5.80) X10*6/uL Hgb 12.3 L (14.0-18.0) g/dl Hct 37.9 L (42.0-52.0) % Plt Count 490 H (160-400) X10*3/uL MPV 8.7 L (9.4-12.4) fL Immature Gran % (Auto) 0.7 H (0.0-0.4) % Neut % (Auto) 76.3 H (45-73) % Lymph % (Auto) 16.7 L (20-40) % Eos % (Auto) (0-4) % Eos # (Auto) (0.0-0.4) X10*3/uL Abs Immat Gran (auto) 0.14 H (0.00-0.03) X10*3/uL Absolute Neuts (auto) 14.7 H (2.0-8.3) x10*3/uL BUN 21 H (9-16) mg/dL Urine Opiates Screen POSITIVE H (Not Detect) Urine Fentanyl Screen POSITIVE H (Not Detect) Urine Cocaine Screen POSITIVE H (Not Detect) 02/03/23 02/03/23 Range/Units 07:43 07:43 WBC (4.8-10.8) X10*3/uL RBC 3.90 L (4.60-5.80) X10*6/uL Hgb 11.2 L (14.0-18.0) g/dl Hct 35.3 L (42.0-52.0) % Plt Count 427 H (160-400) X10*3/uL MPV 8.8 L (9.4-12.4) fL Immature Gran % (Auto) 0.5 H (0.0-0.4) % Neut % (Auto) (45-73) % Lymph % (Auto) (20-40) % Eos % (Auto) 7.6 H (0-4) % Eos # (Auto) 0.7 H (0.0-0.4) X10*3/uL Abs Immat Gran (auto) 0.05 H (0.00-0.03) X10*3/uL Absolute Neuts (auto) (2.0-8.3) x10*3/uL BUN 18 H (9-16) mg/dL Urine Opiates Screen (Not Detect) Urine Fentanyl Screen (Not Detect) Urine Cocaine Screen (Not Detect) Short CBC 02/02/23 02/03/23 Range/Units 22:20 07:43 WBC 19.3 H 9.4 (4.8-10.8) X10*3/uL Hgb 12.3 L 11.2 L (14.0-18.0) g/dl Hct 37.9 L 35.3 L (42.0-52.0) % Plt Count 490 H 427 H (160-400) X10*3/uL BMP 02/02/23 02/03/23 02/03/23 22:20 07:43 07:43 Sodium 141 142 Potassium 4.0 4.4 Chloride 102 106 Carbon Dioxide 28 26 BUN 21 H 18 H Creatinine 1.34 0.86 0.86 Calcium 9.0 8.4 D Liver Function 02/02/23 Range/Units 22:20 Total Bilirubin 0.3 (0.0-1.0) mg/dL Direct Bilirubin < 0.2 (0.0-0.5) mg/dL AST 28 (5-37) U/L ALT 24 (0-40) U/L Alkaline Phosphatase 84 (39-117) U/L Albumin 4.1 (3.5-5.0) g/dL All other labs normal. Assessment and Plan (1) Cellulitis and abscess of foot: Status: Acute (2) Complicated wound infection: Status: Acute Plan See HPI Time Spent With Patient Time: Total time managing care of this patient today ____ minutes. Procedures Date of Service Date of Service: 02/03/23
--- NOTE | 2023-02-03 14:50 | MHC.RECOVRN ---
Met with pt in 478 after consult placed to Addiction Medicine. Pt sitting in bed, eating, appears to be slightly uncomfortable. Pt reports returning to the hospital after not being able to get PO antibiotics. Pt received 50 mg methadone this morning. Reports using a couple bags heroin daily. Reports withdrawal symptoms including body aches and cravings. Pt would like to continue to titrate methadone. Denies questions or concerns for t/w at this time. Discussed with Allison López APRN.
[2023-02-03 15:16] VITALS: BP 98/55; PULSE 80; RESP 17; TEMP 36.8; O2SAT 96
--- NOTE | 2023-02-03 15:19 | MHC.CM.PN ---
Male 37 DX Foot cellulitis. He states that he is homeless. He is independent will all functional mobility. He has been vaccinated x 3 for covid. A HCP has been documented and placed on the chart. He names his brother Yuri [phone] as HCP. He stated that he will stay with his bro at [place]. DP to brothers home. He may need assist with transportation.
--- NOTE | 2023-02-03 16:17 | P.EN_ITS ---
Event Note Date of Service: 02/03/23 Event Note: addiction consult please see senior marketing manager note dated 02/03/23 methadone dose increased to 55mg for tomorrow (02/04) Time Spent With Patient Time: Total time managing care of this patient today ____ minutes.
--- NOTE | 2023-02-03 16:19 | P.CNID_ITS ---
History of Present Illness Data of Consult Service Date: 02/03/23 Requesting physician: Mich Corrales Primary Care Provider: Unknown Physician HPI Reason for consult: second toe redness He presents six days worsening right second toe redness. He has no fever or chills. He has leukocytosis. Review of Systems Review of Systems: Yes all other systems are reviewed and are negative PMFSH Past Medical History Medical History Drug abuse Heroin abuse Tobacco use (~01/31/23) Family History Family history: reviewed and not pertinent Surgical History Surgical History Surgical history unknown Social History Social History Household Members: None Household Members Other:: Homeless Housing: Homeless Do you presently have visiting nurse or other home services: No Unable to assess alcohol history related to: Unable to respond Alcohol intake: unknown Patient Tobacco Use Status: Current everyday Tobacco user Tobacco use type: Cigarette Smoked in Last 30 Days: Yes Patient Interested in Nicotine Replacement: No Patient Given Instructions on How to Stop Smoking: Yes Date Education Initiated: 02/03/23 Second Hand Smoke Exposure: No Use of substances other than those prescribed or required for medical reasons: Yes Substance Use Type: Crack/Cocaine, Heroin and Opiates Currently Displaying Signs/Symptoms of Drug Intoxication Withdrawal: No Any prior treatment program specific to substance use: No Have you been hit, kicked, punched, or otherwise hurt by someone within the past year? If so, by whom?: No Do you feel safe in your current relationship?: No Current Relationship Is there a partner from a previous relationship who is making you feel unsafe now?: No Are you made to feel afraid or neglected: No Advance Directives: No Advance Directives Information Provided: Yes Do you have thoughts of harming others: None Do you have a plan to hurt others: No Plan Recently lost weight without trying: Unsure Eating poorly because of decreased appetite: No Nutrition Risks: Poor intake 0-25% >4 days service: No Current occupational status: unemployed Meds Allergies Allergy/AdvReac Type Severity Reaction Status Date / Time No Known Allergies Allergy Verified 02/03/23 04:20 Active Medications: Current Medications Acetaminophen (Acetaminophen 325 Mg Tablet) 650 mg PO Q6H PRN PRN Reason: Pain, Mild (Pain Scale 1-3) Heparin Sodium (Porcine) (Heparin Sodium,Porcine 5,000 Unit/Ml Vial) 5,000 unit SUBCUT Q8H [facility] Last Admin: 02/03/23 13:41 Dose: Not Given Piperacillin Sod/Tazobactam (Sod 3.375 gm/ Sodium Chloride) 50 mls @ 12.5 mls/hr IV Q8H [facility] Last Admin: 02/03/23 15:32 Dose: 12.5 mls/hr Vancomycin HCl 1,000 mg/ (Sodium Chloride) 270 mls @ 270 mls/hr IV Q8H [facility] Last Infusion: 02/03/23 14:40 Dose: Infused Melatonin (Melatonin 3 Mg Tablet) 6 mg PO BEDTIME PRN PRN Reason: Insomnia Methadone HCl (Methadone Hcl 20 Mg/2 Ml Oral.Conc) 55 mg PO DAILY [facility] Pharmacy Consult (Consult Rx Vancomycin Dosing) 1 each MISCELLANE DAILY PRN PRN Reason: Consult order Senna (Sennosides 8.6 Mg Tablet) 17.2 mg PO BEDTIME PRN PRN Reason: Constipation Sodium Chloride (0.9 % Sodium Chloride Flush 3 Ml Syringe) 3 ml IVFLUSH QSHIFT [facility] Last Admin: 02/03/23 15:33 Dose: 3 ml Home Medications Medication Instructions Recorded Confirmed Last Taken Type methadone 10 mg/mL oral concentrate 50 mg PO DAILY 02/03/23 02/03/23 02/02/23 History Physical Exam Vital Signs: Vital Signs: Last Vital Signs Temp 98.2 F 02/03/23 15:16 Pulse 80 02/03/23 15:16 Resp 17 02/03/23 15:16 BP 98/55 L 02/03/23 15:16 Pulse Ox 96 02/03/23 15:16 O2 Del Method 02/03/23 15:16 BMI result Body Mass Index 23.5 Const: General: cooperative HEENT: Head: Yes normal to inspection Face and sinus: Yes normal facial exam Mouth: Normal oral and palatal mucosa present Teeth and gingiva: dentition normal Eyes: General: appearance normal, both eyes and all related structures Pupils: Equal, round and reactive pupils present Resp: Effort & Inspection: normal respiratory effort Cardio: Rate: regular rate Rhythm: regular rhythm GI: Palpation (GI): Soft to palpation and nontender : General: Yes no CVA tenderness Back/Spine/Pelvis: Back: no CVA tenderness Skin: General skin exam: no rashes or lesions noted Neuro: General: moves all extremities Cranial nerves: Yes Equal, round and reactive pupils present Extrem: Other: right second toe redness Psych: Appearance: grossly normal Results Labs 02/03/23 07:43 02/03/23 07:43 Labs: Short CBC 02/02/23 02/03/23 Range/Units 22:20 07:43 WBC 19.3 H 9.4 (4.8-10.8) X10*3/uL Hgb 12.3 L 11.2 L (14.0-18.0) g/dl Hct 37.9 L 35.3 L (42.0-52.0) % Plt Count 490 H 427 H (160-400) X10*3/uL BMP 02/02/23 02/03/23 02/03/23 22:20 07:43 07:43 Sodium 141 142 Potassium 4.0 4.4 Chloride 102 106 Carbon Dioxide 28 26 BUN 21 H 18 H Creatinine 1.34 0.86 0.86 Calcium 9.0 8.4 D Liver Function 02/02/23 Range/Units 22:20 Total Bilirubin 0.3 (0.0-1.0) mg/dL Direct Bilirubin < 0.2 (0.0-0.5) mg/dL AST 28 (5-37) U/L ALT 24 (0-40) U/L Alkaline Phosphatase 84 (39-117) U/L Albumin 4.1 (3.5-5.0) g/dL Microbiology Microbiology Results: Microbiology 02/03/23 02:02 Foot Right Gram Stain - Final Assessment and Plan (1) Complicated wound infection: Status: Acute (2) Cellulitis and abscess of foot: Status: Acute This is likely abscess,not deep infection ?frostbite Plan Continue IV antibiotics Vancomycin and Zosyn When leukocytosis resolved then po Doxycycline and Augmentin seven days Check HIV test. Time Spent With Patient Time: Total time managing care of this patient today ____ minutes.
[2023-02-03] MEDS: Heparin Sodium,Porcine 5,000 UNIT/ML VIAL 5000 UNIT SUBCUT (21:45)
[2023-02-03 23:35] VITALS: BP 140/82; PULSE 66; RESP 16; TEMP 36.8; O2SAT 97
[2023-02-04] MEDS: Piperacillin Sodium/Tazobactam 3.375 GM in 0.9 % Sodium Chloride 50 ML IV ×2 (02:39→08:11)
[2023-02-04 04:19] VITALS: BP 131/85; PULSE 61; RESP 18; TEMP 36.8; O2SAT 97
[2023-02-04] MEDS: vancomycin HCL 1,000 MG in 0.9 % Sodium Chloride 250 ML 270 MG IV (06:47)
[2023-02-04] MEDS: Heparin Sodium,Porcine 5,000 UNIT/ML VIAL 5000 UNIT SUBCUT (06:48)
[2023-02-04 06:57] LABS: Creatinine Clr Calc Pharmacy 113.6; Estimated Glomerular Filt Rate > 60
[2023-02-04 07:47] VITALS: BP 120/81; PULSE 61; RESP 18; TEMP 36.5; O2SAT 100
[2023-02-04] MEDS: methADONE HCl 20 MG/2 ML ORAL.CONC 55 MG PO (08:10)
[2023-02-04] MEDS: 0.9 % Sodium Chloride Flush 3 ML SYRINGE IVFLUSH (08:16)
--- NOTE | 2023-02-04 08:46 | PC.NURSE ---
pt wanted to leave AMA. Dr Corrales notified and came to talk with the patient.pt still wanted to leave. AMA form signed. pt aware of health risks frm leaving again medical advises.
--- NOTE | 2023-02-04 10:13 | PM.DS ---
DS: Providers Provider Date of Service: 02/04/23 Date of admission: 02/03/23 02:29 Primary care physician: Unknown Physician Consults: 02/03/23 02:28 Consult to General Surgery Routine Consulting Provider: [facility] General Surgeons Reason for consultation: Right foot cellulitis/abscess Consult to Infectious Diseases Routine Consulting Provider: [facility] Infectious Disease Reason for consultation: Foot cellulitis 02/03/23 02:33 Addiction Medicine Routine Consulting Provider: Addiction Covering Reason for consultation: Patient on methadone DS: Diagnosis Discharge Diagnosis (1) Complicated wound infection: Status: Acute (2) Cellulitis and abscess of foot: Status: Acute DS: Summary Hospital Course Hospital Course: Admission note HPI 37-year-old male with a past medical history of tobacco dependence, substance abuse presented to the hospital with a chief complaint of right foot pain.? Patient was recently admitted to the hospital for right foot pain and swelling concerning for cellulitis; given antibiotics-IV vancomycin; patient was subsequently discharged on doxycycline/Augmentin for 14 day course.? Patient was discharged on 02/02/2023; presented back to the hospital with a chief complaint of worsening right foot pain and swelling; concerning for possible discharge from the foot; Patient denies any fevers and chills.?Denies any nausea vomiting or diarrhea.?Denies any falls or trauma.? Denies any injury to the foot.? Review of all other systems is negative except mentioned above Per ER team, patient noted to have right foot pain and swelling, more so on the proximal port of the 2nd toe with small abscess; concerning for cellulitis-suspected bone infection; patient was given IV vancomycin and Zosyn.? Admitted to the hospital for further management.? Hospital course The patient was treated with IV antibiotics of Vancomycin and Zosyn as he was evaluated with MRI of the foot showing evidence of small abscess and cellulitis. evaluated by surgery and infectious disease specialists who recommended no intervention needed at this stage and to finish 1 week of oral Augmentin and Doxycycline on dischage. The patient decided to leave AMA and refused to stay to finish IV Abx pending blood cultures. He signed and left. Will send him oral Abx of Doxycycline and Augmentin based on ID recommendations. Time Spent with Patient Time attestation: Total time managing care of this patient today ____ minutes. Discharge coordination time: Greater than 30 minutes Quality: Safe Use of Opioids Does Pt have an Active Cancer Diagnosis on the Problem List?: No Quality: Stroke Does the patient have a stroke diagnosis?: No Physical Exam Vital Signs: Vital Signs: Last Vital Signs Temp 97.7 F 02/04/23 07:47 Pulse 61 02/04/23 07:47 Resp 18 02/04/23 07:47 BP 120/81 02/04/23 07:47 Pulse Ox 100 02/04/23 07:47 O2 Del Method 02/04/23 07:47 BMI result Body Mass Index 23.5 Const: Other: left AMA DS: Data Data Completed and Pending Labs on day of discharge: Laboratory Results - last 24 hr 02/04/23 06:25 Creatinine 0.84 Estim Creat Clear Calc 113.6 Estimated GFR > 60 Preliminary micro results at discharge 02/03/23 02:02 Routine Culture - Preliminary Foot Right Staphylococcus aureus 02/03/23 02:02 Blood Culture - Preliminary Blood - Venous No growth after 24 hours. 02/03/23 01:53 Blood Culture - Preliminary Blood - Venous No growth after 24 hours. Imaging Chest x-ray: Radiologist's impression: ITS Impressions Foot MRI 02/03/23 13:19 IMPRESSION: Cellulitis and abscess formation along the dorsal aspect of the 2nd and 3rd metatarsophalangeal joints, more prominent when compared to the prior CT. No underlying osteomyelitis. Discharge Plan Discharge Patient Disposition: Left Against Medical Advice Discharge Diagnosis: Cellulitis Referrals: Physician,Unknown J [Primary Care Provider] - 1 Week Discharge Medications: New amoxicillin-pot clavulanate 875-125 mg tablet 1 tab PO BID Qty: 14 0RF doxycycline monohydrate 100 mg capsule 100 mg PO BID Qty: 14 0RF Continued methadone 10 mg/mL Concentrate 50 mg PO DAILY Discharge Orders: Discharge Order (Routine); Ordered 02/04/23 Ordered By: Mich Corrales Care Plan Goals: . Health Concerns: . Plan of Treatment: . Assessment: .
--- NOTE | 2023-02-04 10:15 | MHC.CM.PN ---
Per ROUNDS discussion,Patient has left AMA.
[2023-02-05 05:09] LABS: HIV AB/AG Nonreactive (Nonreactive); HIV Num 1 0.06 S/CO (0.00-0.99)
== END 2023-02-04 08:50 | disposition left against medical advice (07) | DRG 603 ==
LOC: HO.ED 02-03 00:05 → HO.EDOVER 02-03 02:48 → HO.IMC 02-03 03:58
PROVIDERS: Admitting Provider Hospitalist; Emergency Provider Internal Medicine; Visit Provider Student in an Organized Health Care Education/Training Program
DX: L02.611 Cutaneous abscess of right foot (principal); F11.20 Opioid dependence, uncomplicated; L03.115 Cellulitis of right lower limb; F17.210 Nicotine dependence, cigarettes, uncomplicated; Z71.6 Tobacco abuse counseling; Z59.02 Unsheltered homelessness; Z20.822 Contact with and (suspected) exposure to COVID-19
CPT/HCPCS: 36415; 73720; 80048; 80053; 80307; 82248; 82565; 83605; 83690; 84484; 85025; 87040; 87070; 87077; 87186; 87205; 87389; 87635; 93005; 99285; A9585; J1643; J2543; J3370; J3371

== ENCOUNTER 2023-12-05 02:26 | Emergency (ER) | payer MEDICARE, MEDICAID, SELFPAY ==
[2023-12-05 02:29] VITALS: BP 138/91; PULSE 71; RESP 18; TEMP 36.6; O2SAT 97; BMI 21.5
--- NOTE | 2023-12-05 04:00 | ED.GENADULT ---
HPI - General Adult General Chief complaint: Skin/Abscess/Foreign Body Stated complaint: bump on lower leg and on head Time Seen by Provider: 12/05/23 02:46 Source: patient Mode of arrival: ambulatory Limitations: no limitations History of Present Illness HPI narrative: 38-year-old male homeless currently live in Street, complaining of a bump on his right side of the head after he had remote head injury many weeks ago, patient also is complaining of a bump on his right leg. Patient admitted to walking long distance and being outside while snowing and cold weather. Patient is asking to have couple hours sleep inside in warm asking for food and drink. Related Data Home Medications Medication Instructions Recorded Confirmed methadone 10 mg/mL oral concentrate 50 mg PO DAILY 02/03/23 02/03/23 Allergies Allergy/AdvReac Type Severity Reaction Status Date / Time No Known Allergies Allergy Verified 02/03/23 04:20 Review of Systems Review of Systems: All other systems are reviewed and are negative Constitutional: Reports as per HPI and Reports no additional constitutional complaints Eyes: Reports as per HPI and Reports no additional eye complaints Reports system reviewed and no additional complaints, except as documented Cardiovascular: Reports as per HPI and Reports no additional cardiovascular complaints Respiratory: Reports as per HPI and Reports no additional respiratory complaints Gastrointestinal: Reports as per HPI and Reports no additional gastrointestinal complaints Genitourinary: Reports no additional female genitourinary complaints Musculoskeletal: Reports no additional musculoskeletal complaints Skin/Breast: Reports system reviewed and no additional complaints, except as docu Psychiatric: Reports no additional psychiatric complaints Endocrine: Reports no additional endocrine complaints Hematologic/Lymphatic: Reports no additional hematologic/lymphatic complaints Allergic/Immunologic: Reports no additional allergic/immunologic complaints Reports system reviewed and no additional complaints, except as documented and Reports Abnormal speech present [facility] Past Medical History Onset Date is defined in the Problem List Problems that require an onset date and time if occurred within 24 hrs of arrival to the ED Aortic Dissection and Rupture; Neurologic impairment; Cardiopulmonary Arrest; Endotracheal Intubation; Insertion or Replacement of Mechanical Circulatory Assist Device Medical History Tobacco use (~01/31/23) Heroin abuse Drug abuse Surgical History Surgical history unknown Social History Social History Household Members: None Household Members Other:: Homeless Housing: Homeless Do you presently have visiting nurse or other home services: No Unable to assess alcohol history related to: Unable to respond Alcohol intake: unknown Comment: [facility] Patient Tobacco Use Status: Current everyday Tobacco user Tobacco use type: Cigarette Second Hand Smoke Exposure: No Substance Use Type: Crack/Cocaine, Heroin and Opiates Advance Directives: Yes Advance Directives Date on File: 02/05/23 service: No Current occupational status: unemployed Physical Exam ED Vital Signs: Vital Signs - 24 hr 12/05/23 02:29 Temperature 97.8 F Pulse Rate 71 Respiratory Rate 18 Blood Pressure 138/91 H Pulse Oximetry 97 Oxygen Delivery Method Room Air BMI result Body Mass Index 21.5 Vital signs have been reviewed and appear to be correct. Blood pressure elevated. Heart rate normal. Respiratory rate normal. Temperature normal. Oxygen saturation normal. Appearance: Alert. Oriented X3. No acute distress. Head: Normal external exam. Normocephalic. Atraumatic. No Mercado signs noted. No raccoon eyes noted Eyes: PERRLA. EOMI. Conjunctiva and sclera normal. Eyelids normal. ENT: TM's Normal. Pharynx normal. Uvula midline. Moist mucous membranes. No trismus noted. No drooling noted. No muffled voice noted. Neck: Normal inspection. Neck supple. FROM. No adenopathy. Thyroid Normal. No meningeal signs. No neck mass noted. CVS: Normal heart rate and rhythm. Heart sound normal. No murmurs noted. Pulses normal throughout. Respiratory: No respiratory distress. Painless inspiration. Breath sounds normal. No wheezes/rales/rhonchi noted. Chest nontender. No accessory muscle usage noted or decreased air movement noted. Abdomen: Soft and nontender. Bowel sounds normal in all 4 quadrants. No distention noted. No organomegaly noted. No visible injury noted. Back: No CVA tenderness. Full range of motion noted. Skin: Skin warm and dry. Normal skin color. Normal skin turgor. No rashes/lesions/lacerations noted. Extremities: Right lower extremity: No lower extremity edema. Extremities exhibit normal range of motion. Extremities nontender. Neuro: Oriented X 3. Cranial nerve exam: II-XII are grossly intact No motor deficit. No sensory deficit. Reflexes normal. Course Reevaluation(s) Reevaluation #1: Patient had food, drink, and 4 hours sleep inside the ER. patient is able to ambulate in the ED unsteady gait normal neuro exam will discharge. Time: 07:00 Medical Decision Making Differential Diagnosis Differential Diagnoses: The differential diagnosis associated with the presentation includes ( Homeless, right leg cellulitis, headache after head injury.) Admission/Observation Consideration of admission/observation: Escalation of care including admission/observation considered Discharge Plan Discharge Clinical Impression: Homeless Patient Disposition: Home, Self-Care Additional Instructions: stay warm. Call shelters in the area and stay indoors. Prescriptions: No Action methadone 10 mg/mL Concentrate 50 mg PO DAILY
[2023-12-05 06:27] VITALS: BP 160/85; PULSE 75; RESP 16; TEMP 36.6; O2SAT 92
--- NOTE | 2023-12-05 07:55 | PC.NURSE ---
continues to rest quietly in bed, respirations even and unlabored. breakfast tray ordered.
[2023-12-05 09:53] VITALS: BP 169/76; PULSE 83; RESP 16; TEMP 36.7; O2SAT 97
== END 2023-12-05 12:19 | disposition home or self-care (01) ==
PROVIDERS: Emergency Provider Emergency Medicine
DX: R22.41 Localized swelling, mass and lump, right lower limb (principal); R22.0 Localized swelling, mass and lump, head; Z59.00 Homelessness unspecified
CPT/HCPCS: 99282; 99283

== ENCOUNTER 2023-12-07 02:20 | Emergency (ER) | payer MEDICARE, MEDICAID, SELFPAY ==
[2023-12-07 02:25] VITALS: BP 122/72; PULSE 96; RESP 16; TEMP 36.6; O2SAT 95; BMI 22.1
--- NOTE | 2023-12-07 03:09 | MHC.EDTECH ---
Patient was brought into triage area,labs and Sars/flu/Rsv obtained and sent to lab
--- OUTSIDE RECORDS SUMMARY | 2023-12-07 03:10 | XMS_ITS | Continuity of Care Document ---
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 0.0 #/100 WBC'S ()?? 10/17/2023 15:36 Abs. NRBC 0.0 k/mm3 ()?? 10/17/2023 15:36 Abs. Neut 6.0 k/mm3 ()?? 10/17/2023 15:36 Abs. Lymph 2.5 k/mm3 ()?? 10/17/2023 15:36 Abs. [place] 0.8 k/mm3 ()?? 10/17/2023 15:36 Abs. Eo 0.3 k/mm3 ()?? 10/17/2023 15:36 Abs. Baso 0.0 k/mm3 ()?? 10/17/2023 15:36 Neut % 61.5 % ()?? 10/17/2023 15:36 Lymph % 26.2 % ()?? 10/17/2023 15:36 [place] % 8.0 % ()?? 10/17/2023 15:36 Eos % 3.5 % ()?? 10/17/2023 15:36 Baso % 0.4 % ()?? 10/17/2023 15:36 Imm Gran 0.4 % ()?? 10/17/2023 15:36 Abs. Imm Gran 0.0 k/mm3 ()?? 10/17/2023 15:36 ?? CHEM GENERAL Sodium 137 mmol/L ()?? 10/17/2023 15:36 Potassium 4.0 mmol/L ()?? 10/17/2023 15:36 Chloride 101 mmol/L ()?? 10/17/2023 15:36 Bicarbonate Level 28 mmol/L ()?? 10/17/2023 15:36 Anion Gap 8 ()?? 10/17/2023 15:36 Glucose Level 88 mg/dL ()?? 10/17/2023 15:36 Glucose, POC 100 mg/dL (High)?? 10/17/2023 12:47 BUN 13 mg/dL ()?? 10/17/2023 15:36 Creatinine-Blood 0.6 mg/dL (Low)?? 10/17/2023 15:36 Estimated GFR Creatinine 75 ML/MIN/1.73 M2 ()?? 10/17/2023 15:36 Calcium 8.6 mg/dL ()?? 10/17/2023 15:36 Protein, Total 6.0 Gm/dL (Low)?? 10/17/2023 15:36 Albumin 3.9 Gm/dL ()?? 10/17/2023 15:36 AG Ratio 1.9 ()?? 10/17/2023 15:36 Alkaline Phosphatase 86 units/L ()?? 10/17/2023 15:36 Lipase 298 units/L (High)?? 10/17/2023 15:36 AST (SGOT) 30 units/L ()?? 10/17/2023 15:36 ALT (SGPT) 40 units/L ()?? 10/17/2023 15:36 Bilirubin, Total 0.2 mg/dL ()?? 10/17/2023 15:36 ? COAG INR 1.0 ()?? 10/17/2023 15:36 Protime (PT) 11.1 seconds ()?? 10/17/2023 15:36 ?? TOXICOLOGY/TDM Ethanol, Serum or Plasma NONE DETECTED mg/dL ()?? 10/17/2023 15:36 Barbiturate Screen, Urine NONE DETECTED ()?? 10/17/2023 13:40 Cannabinoid Screen, Urine POSITIVE (Abnormal)?? 10/17/2023 13:40 Cocaine Metabolite Screen, Urine POSITIVE (Abnormal)?? 10/17/2023 13:40 Benzodiazepine Screen, Urine POSITIVE (Abnormal)?? 10/17/2023 13:40 Amphetamine Screen, Urine NONE DETECTED ()?? 10/17/2023 13:40 Opiate Screen, Urine POSITIVE (Abnormal)?? 10/17/2023 13:40 ? 25_ minutes spent on discharge Patient Care team information Care Team Personnel Name: Not on Staff, PCP Position: [facility] Physician (General Medicine) Member Role: PCP Name: *Octavia VELARDE Attending Position: [facility] ED Medicine Name: Angeli Robert RN Position: [facility] ED RN W/OE and Tasks Member Role: Patient Care Provider Name: Yadira Richardson Position: [facility] ED [facility]
[2023-12-07 03:14] LABS: MANUAL DIFF FLAG NO
[2023-12-07 03:16] LABS: Basophils Percent Auto 0.4 % (0-2); Eosinophils Absolute Auto 0.3 X10*3/uL (0.0-0.4); Eosinophils Percent Auto 2.8 % (0-4); Hematocrit 41.1 % (42.0-52.0); Hemoglobin 13.1 g/dl (14.0-18.0); Imm Gran Abs Auto 0.02 X10*3/uL (0.00-0.03); Imm Gran Pct Auto 0.2 % (0.0-0.4); Lymphocytes Absolute Auto 3.4 X10*3/uL (1.2-4.9); Lymphocytes Percent Auto 34.2 % (20-40); Mean Corpuscular HGB Conc 31.9 g/dl (31.0-36.0); Mean Corpuscular Volume 91.1 fL (80.0-98.0); Mean Platelet Volume 8.7 fL (9.4-12.4); Monocytes Absolute Auto 0.8 X10*3/uL (0.1-1.2); Monocytes Percent Auto 8.2 % (2-11); Neutrophils Absolute Auto 5.4 x10*3/uL (2.0-8.3); Neutrophils Percent Auto 54.2 % (45-73); Platelet Count 419 X10*3/uL (160-400); Red Blood Count 4.51 X10*6/uL (4.60-5.80); Red Cell Distribution Width 12.8 % (11.0-16.0)
[2023-12-07 03:28] LABS: Alanine Aminotransferase 24 U/L (0-40); Albumin Level 4.4 g/dL (3.5-5.0); Alkaline Phosphatase 92 U/L (39-117); Anion Gap 13 (12-20); Aspartate Amino Transferase 30 U/L (5-37); Bilirubin Total 0.2 mg/dL (0.0-1.0); Blood Urea Nitrogen 25 mg/dL (9-16); Calcium 9.3 mg/dL (8.4-10.2); Carbon Dioxide 30 mmol/L (22-29); Chloride 103 mmol/L (96-108); Estimated Glomerular Filt Rate > 60; Glucose Random 79 mg/dL (60-115); Lipase 71 U/L (8-78); Potassium 3.6 mmol/L (3.3-5.1); Sodium 142 mmol/L (135-145); Total Protein 7.4 g/dL (6.5-8.0)
[2023-12-07 03:53] LABS: Influenza A PCR NEGATIVE (Negative); Influenza B PCR NEGATIVE (Negative); Resp Syncy Virus RNA Qual PCR NEGATIVE (Negative); SARS COV2 PCR INHOUSE NEGATIVE (Negative)
[2023-12-07 08:00] VITALS: BP 128/84; PULSE 71; RESP 16; O2SAT 97
--- NOTE | 2023-12-07 08:04 | PC.NURSE ---
Pt s a&ox4 coming in with n/v since yesterday, reports associated abd pain right in the middle, abd soft non tender. skin PWD. moving all extremities independently. respirations even and unlabored.
--- NOTE | 2023-12-07 09:30 | ED_ITS ---
HPI - Abdominal Pain General Chief Complaint: Nausea/Vomiting/Diarrhea Stated Complaint: Nausea/Dizziness/Blood in stool Time Seen by Provider: 12/07/23 09:09 Source: patient Mode of arrival: ambulatory Limitations: no limitations History of Present Illness HPI narrative: 38-year-old male with a history of opiate use disorder, cellulitis, who presents emergency department for evaluation of stomach pain. The patient points to his epigastric area when asked to localize the pain. He states the pain came on yesterday and is been intermittent. He states the pain is sharp stabbing pain which is 6/10 at its worst. The patient had associated nausea but no vomiting. He states that he had 1 soft stool yesterday. He denied fever, chills, shortness of breath, cough, chest pain, dark tarry stools or bloody stools. He denied frequency, urgency or dysuria. Patient states he does receive methadone but missed his dose of methadone yesterday. He did use 1 bags of heroin intranasally earlier this morning. Related Data Home Medications Medication Instructions Recorded Confirmed methadone 10 mg/mL oral concentrate 75 mg PO DAILY 02/03/23 02/03/23 Previous Rx's Medication Instructions Recorded famotidine 20 mg tablet 20 mg PO DAILY #30 tabs 12/07/23 Allergies Allergy/AdvReac Type Severity Reaction Status Date / Time No Known Allergies Allergy Verified 12/07/23 02:25 Review of Systems Review of Systems Yes all other systems are reviewed and are negative [facility] Past Medical History [facility] Narrative: Social history: He does smoke cigarettes. He states he rarely drinks alcohol and has not had any alcohol recently. He does use intranasal heroin last use prior to coming to the emergency department. Onset Date is defined in the Problem List Problems that require an onset date and time if occurred within 24 hrs of arrival to the ED Aortic Dissection and Rupture; Neurologic impairment; Cardiopulmonary Arrest; Endotracheal Intubation; Insertion or Replacement of Mechanical Circulatory Assist Device Medical History Tobacco use (~01/31/23) Heroin abuse Drug abuse Surgical History Surgical history unknown Social History Social History Household Members: None Household Members Other:: Homeless Housing: Homeless Do you presently have visiting nurse or other home services: No Unable to assess alcohol history related to: Unable to respond Alcohol intake: unknown Comment: C Patient Tobacco Use Status: Current everyday Tobacco user Tobacco use type: Cigarette Smoked in Last 30 Days: Yes Second Hand Smoke Exposure: No Use of substances other than those prescribed or required for medical reasons: No Substance Use Type: Crack/Cocaine, Heroin and Opiates Advance Directives: Yes Advance Directives on File: Yes Advance Directives Date on File: 02/05/23 service: No Current occupational status: unemployed Physical Exam ED Vital Signs: Vital Signs - 24 hr 12/07/23 02:25 12/07/23 08:00 Temperature 97.9 F Pulse Rate 96 71 Respiratory Rate 16 16 Blood Pressure 122/72 128/84 Pulse Oximetry 95 97 Oxygen Delivery Method Room Air Room Air BMI result Body Mass Index 22.1 Vital signs were normal Exam: General: Patient is disheveled, pleasant, cooperative, answers all questions appropriately Head: Normocephalic, atraumatic EENT: PERRL, Lids normal, sclera normal, conjunctiva normal, nose normal , ears normal, throat without erythema or exudates Neck: Supple, no adenopathy, no trachea midline or C-spine tenderness Lung: breath sounds symmetric, no wheezing, rales or rhonchi Chest: symmetric movement, nontender Heart: regular rate and rhythm, normal S1, S2 no murmurs or rubs Abdomen: Very thin abdomen, moderate epigastric tenderness, no rebound, no voluntary or involuntary guarding Back: no vertebral tenderness, no CVAT Extremities: no deformities, moves all extremities symmetrically Psych: Pleasant, cooperative Medical Decision Making Medical Decision Making [facility] Narrative: 38-year-old male with a history of opiate use disorder, cellulitis, who presents emergency department for evaluation of intermittent epigastric pain x2 days associated with nausea with no vomiting. He denied other systemic symptoms such as fever chills. Examination did reveal epigastric tenderness otherwise was unremarkable. Following evaluation was ordered: CBC, CMP, lipase, COVID-19, influenza, RSV. Patient was treated with normal saline IV x1 L, Zofran 4 mg IV and Toradol 15 mg IV. I will verify the patient's methadone dose and give it to him to prevent him from withdrawing from opiates. 09:38 My interpretation patient's laboratory evaluation is as follows: Elevated platelet count 890400. Elevated BUN 25. Elevated bicarb 30. LFTs were normal. Lipase was negative. COVID-19, influenza and RSV were negative. 11:48 Patient is feeling better after the above treatment. I did order his outpatient methadone dose 75 mg orally. Patient most likely has gastritis, he will be discharged home with a prescription for Pepcid. Differential Diagnosis Differential Diagnoses: The differential diagnosis associated with the presentation includes Differential diagnosis includes was not limited to gastritis, viral syndrome, COVID-19, influenza, RSV, pancreatitis, appendicitis Admission/Observation Consideration of admission/observation: Escalation of care including admission/observation considered Lab Data 12/07/23 03:08 12/07/23 03:08 Labs: Lab Results 12/07/23 Range/Units 03:08 WBC 10.0 (4.8-10.8) X10*3/uL RBC 4.51 L (4.60-5.80) X10*6/uL Hgb 13.1 L (14.0-18.0) g/dl Hct 41.1 L (42.0-52.0) % MCV 91.1 (80.0-98.0) fL MCH 29.0 (27.0-33.0) pg MCHC 31.9 (31.0-36.0) g/dl RDW 12.8 (11.0-16.0) % Plt Count 419 H (160-400) X10*3/uL MPV 8.7 L (9.4-12.4) fL Immature Gran % (Auto) 0.2 (0.0-0.4) % Neut % (Auto) 54.2 (45-73) % Lymph % (Auto) 34.2 (20-40) % [place] % (Auto) 8.2 (2-11) % Eos % (Auto) 2.8 (0-4) % Baso % (Auto) 0.4 (0-2) % Lymph # (Auto) 3.4 (1.2-4.9) X10*3/uL [place] # (Auto) 0.8 (0.1-1.2) X10*3/uL Eos # (Auto) 0.3 (0.0-0.4) X10*3/uL Baso # (Auto) 0.0 (0.0-0.2) X10*3/uL Abs Immat Gran (auto) 0.02 (0.00-0.03) X10*3/uL Absolute Neuts (auto) 5.4 (2.0-8.3) x10*3/uL Absolute Nucleated RBC 0.000 (0.0-0.012) X10*3/uL Nucleated RBC % (auto) 0.0 (0.0-0.2) /100WBC Sodium 142 (135-145) mmol/L Potassium 3.6 (3.3-5.1) mmol/L Chloride 103 (96-108) mmol/L Carbon Dioxide 30 H (22-29) mmol/L Anion Gap 13 (12-20) BUN 25 H (9-16) mg/dL Creatinine 1.04 (0.5-1.4) mg/dL Estim Creat Clear Calc 88.0 Estimated GFR > 60 Random Glucose 79 (60-115) mg/dL Calcium 9.3 D (8.4-10.2) mg/dL Total Bilirubin 0.2 (0.0-1.0) mg/dL AST 30 (5-37) U/L ALT 24 (0-40) U/L Alkaline Phosphatase 92 (39-117) U/L Total Protein 7.4 (6.5-8.0) g/dL Albumin 4.4 (3.5-5.0) g/dL Lipase 71 (8-78) U/L Influenza Type A (PCR) NEGATIVE (Negative) Influenza Type B (PCR) NEGATIVE (Negative) RSV RNA Qual (PCR) NEGATIVE (Negative) SARS-CoV-2 RNA (RT-PCR) NEGATIVE (Negative) Medications Administered Discontinued Medications Generic Name Dose Route Start Last Admin Trade Name Freq PRN Reason Stop Dose Admin Sodium Chloride 1,000 mls @ 999 mls/hr 12/07/23 09:29 12/07/23 10:44 Ns IV 12/07/23 10:29 999 mls/hr .Q1H1M STA Administration Ketorolac Tromethamine 15 mg 12/07/23 09:29 12/07/23 11:01 Ketorolac Tromethamine 15 Mg/Ml Vial IVPUSH 12/07/23 09:30 15 mg ONCE STA Administration Ondansetron HCl 4 mg 12/07/23 09:29 12/07/23 11:01 Ondansetron Hcl 4 Mg/2 Ml Vial IVPUSH 12/07/23 09:30 4 mg ONCE ONE Administration Discharge Plan Discharge Clinical Impression: Opiate use, Methadone use Gastritis Qualifiers: Chronicity: acute Gastritis bleeding: without bleeding Patient Disposition: Home, Self-Care Instructions: Gastritis (ED) Additional Instructions: Your blood work was unremarkable. Your symptoms are consistent with inflammation of your stomach, gastritis Take Pepcid (famotidine) 20 mg pills, 1 pill once a day for 2 weeks. ?This medication reduces the amount of acid that your stomach produces and will help the inflammation in your stomach heal. Follow-up with your doctor in 2 days. Please return to the emergency department if your symptoms get worse or if you develop any symptoms that are concerning to you. You were given your dose of methadone today in the emergency department, make sure you follow-up with your methadone clinic for further dosing of your medication so you do not withdraw. If you continue to use heroin while on methadone then you should discuss increasing your methadone dose with the clinic to try to prevent the number of times use heroin. Follow-up with your doctor in 2 days. Please return to the emergency department if your symptoms get worse or if you develop any symptoms that are concerning to you. Prescriptions: New famotidine 20 mg tablet 20 mg PO DAILY Qty: 30 0RF No Action methadone 10 mg/mL Concentrate 75 mg PO DAILY
[2023-12-07] MEDS: 0.9 % Sodium Chloride 1,000 ML 999 ML IV (10:44)
[2023-12-07] MEDS: Ketorolac Tromethamine 15 MG/ML VIAL IVPUSH (11:01)
[2023-12-07] MEDS: ondansetron HCL 4 MG/2 ML VIAL IVPUSH (11:01)
--- NOTE | 2023-12-07 11:15 | HE.PHANOTE ---
RE: methadone From [facility], patient given take home bottles for 12/04 and 12/05, 75mg
[2023-12-07] MEDS: methADONE HCl 20 MG/2 ML ORAL.CONC 75 MG PO (11:58)
== END 2023-12-07 13:12 | disposition home or self-care (01) ==
PROVIDERS: Emergency Provider Emergency Medicine Emergency Medical Services
DX: K29.70 Gastritis, unspecified, without bleeding (principal); Z20.822 Contact with and (suspected) exposure to COVID-19; Z20.828 Contact with and (suspected) exposure to other viral communicable diseases; Z79.899 Other long term (current) drug therapy
CPT/HCPCS: 0241U; 36415; 80053; 83690; 85025; 96374; 96375; 99284; J1885; J2405

== ENCOUNTER 2023-12-08 03:32 | Emergency (ER) | payer MEDICARE, MEDICAID, SELFPAY | END 2023-12-08 04:40 | disposition left against medical advice (07) | PROVIDERS: Emergency Provider Emergency Medicine | DX: R42 Dizziness and giddiness (principal); Z53.21 Procedure and treatment not carried out due to patient leaving prior to being seen by health care provider ==

== ENCOUNTER 2023-12-08 07:17 | Emergency (ER) | payer MEDICARE, MEDICAID, SELFPAY | END 2023-12-08 09:10 | disposition left against medical advice (07) | PROVIDERS: Emergency Provider Emergency Medicine | DX: R42 Dizziness and giddiness (principal); Z53.21 Procedure and treatment not carried out due to patient leaving prior to being seen by health care provider ==

== ENCOUNTER 2023-12-09 03:20 | Emergency (ER) | payer MEDICARE, MEDICAID, SELFPAY ==
[2023-12-09 03:24] VITALS: BP 137/84; PULSE 79; RESP 16; TEMP 37.1; O2SAT 96; BMI 22.6
--- NOTE | 2023-12-09 03:47 | ED_ITS ---
HPI - Fall General Chief Complaint: Fall Stated Complaint: dizziness, repeat pt Time Seen by Provider: 12/09/23 03:47 Source: patient Mode of arrival: ambulatory Limitations: no limitations History of Present Illness HPI Narrative: Patient homeless been here multiple times for different reasons was seen here yesterday for stomach upset now he comes as he fell on the ice hitting his left side of the head to the snow bank no loss of consciousness no significant signs of injury no open wound patient was wearing winter clothes when he fell Related Data Home Medications Medication Instructions Recorded Confirmed methadone 10 mg/mL oral concentrate 75 mg PO DAILY 02/03/23 02/03/23 Previous Rx's Medication Instructions Recorded famotidine 20 mg tablet 20 mg PO DAILY #30 tabs 12/07/23 Allergies Allergy/AdvReac Type Severity Reaction Status Date / Time No Known Allergies Allergy Verified 12/09/23 03:24 Review of Systems Review of Systems: Yes all other systems are reviewed and are negative PMFSH Past Medical History Onset Date is defined in the Problem List Problems that require an onset date and time if occurred within 24 hrs of arrival to the ED Aortic Dissection and Rupture; Neurologic impairment; Cardiopulmonary Arrest; Endotracheal Intubation; Insertion or Replacement of Mechanical Circulatory Assist Device Medical History Tobacco use (~01/31/23) Heroin abuse Drug abuse Surgical History Surgical history unknown Social History Social History Household Members: None Household Members Other:: Homeless Housing: Homeless Do you presently have visiting nurse or other home services: No Unable to assess alcohol history related to: Unable to respond Alcohol intake: unknown [place] [facility] [place] Tobacco Use Status: Current everyday Tobacco user Tobacco use type: Cigarette Second Hand Smoke Exposure: No Substance Use Type: Crack/Cocaine, Heroin and Opiates Advance Directives: Yes Advance Directives on File: Yes Advance Directives Date on File: 02/05/23 service: No Current occupational status: unemployed Physical Exam Vital Signs: Vital Signs: Last Vital Signs Temp 98.8 F 12/09/23 03:24 Pulse 79 12/09/23 03:24 Resp 16 12/09/23 03:24 BP 137/84 12/09/23 03:24 Pulse Ox 96 12/09/23 03:24 O2 Del Method Room Air 12/09/23 03:24 BMI result Body Mass Index 22.6 Appearance: Alert. Oriented X3. No acute distress. No signs of injury Eyes: PERRLA, No Nystagmus ENT: Pharynx normal. Oral Mucosa moist atraumatic normocephalic Neck: Normal inspection. Neck supple. CVS: Normal heart rate and rhythm. Pulses normal. Respiratory: No respiratory distress. Equal air entry bilateral, Abdomen: Soft and nontender. Bowel sounds are present, no mass palpable, no CVA tenderness Skin: Skin warm and dry. Normal skin color. Normal skin turgor. Extremities: No lower extremity edema. No calf tenderness Neuro: Oriented X 3. No motor deficit. No sensory deficit.No cerebellar signs , cranial nerves II-XII intact Medical Decision Making Medical Decision Making MDM Narrative: Patient after minor fall no signs of injury patient is homeless using drugs seems like coming to the ER for resting and sleeping with multiple different complaints vitals are stable discharge patient home advised to follow-up with detox if needed Discharge Plan Discharge Clinical Impression: Minor closed head injury Patient Disposition: Home, Self-Care Instructions: Head Injury (ED) Additional Instructions: Stop using drugs cautions as advised Prescriptions: No Action methadone 10 mg/mL Concentrate 75 mg PO DAILY famotidine 20 mg tablet 20 mg PO DAILY Qty: 30 0RF
--- NOTE | 2023-12-09 03:55 | PC.NURSE ---
pt presents with no sign of injury. Dr. Herndon to bedside. pt educated on d/c paperwork.
== END 2023-12-09 04:34 | disposition home or self-care (01) ==
LOC: HO.ED 03:52
PROVIDERS: Emergency Provider Internal Medicine
DX: S09.90XA Unspecified injury of head, initial encounter (principal); W00.0XXA Fall on same level due to ice and snow, initial encounter; Z59.02 Unsheltered homelessness; F19.10 Other psychoactive substance abuse, uncomplicated; F17.210 Nicotine dependence, cigarettes, uncomplicated; Y93.9 Activity, unspecified; Y92.9 Unspecified place or not applicable; Y99.9 Unspecified external cause status
CPT/HCPCS: 99282

== ENCOUNTER 2023-12-19 03:48 | Emergency (ER) | payer MEDICARE, MEDICAID, SELFPAY ==
--- NOTE | ~2023-12-19 | XR_ITS ---
EXAMINATION: XR ANKLE, RIGHT CLINICAL INFORMATION: Pain. COMPARISON: None available. TECHNIQUE: AP, lateral, and mortise views of the right ankle. FINDINGS: The bone mineralization is normal. The joint spaces are maintained. There is no fracture. There is a small radiopaque density measuring 1.5 mm along the inferior Achilles tendon. A small heel spur is noted. XR/XR ankle RT min 3V IMPRESSION: 1. No fracture or dislocation. 2. Small heel spur. 3. Small radiopaque density along the inferior Achilles tendon. This is possibly a foreign body but of uncertain acuity and current significance.
[2023-12-19 03:52] VITALS: BP 140/103; PULSE 95; RESP 16; TEMP 36.9; O2SAT 97; BMI 23.5
[2023-12-19 06:06] VITALS: BP 126/80; PULSE 70; RESP 14; TEMP 36.6; O2SAT 99
--- NOTE | 2023-12-19 07:27 | ED_ITS ---
HPI - Extremity Injury (Lower) General Chief Complaint: Extremity Injury, Lower Stated Complaint: Rt ankle pain, tailbone cyst Time Seen by Provider: 12/19/23 07:01 Source: patient Limitations: no limitations History of Present Illness HPI Narrative: This is a 38 years old male with history of substance abuse presented to the emergency department complaining of right ankle pain he stated that his brain is ankle in the street. He is also complaining of tailbone pain was an abscess MD complaint: ankle injury Onset (ago): day(s) Injury: Right: ankle Type of Injury: blunt Place: home Severity: moderate Other symptoms: none Related Data Home Medications Medication Instructions Recorded Confirmed methadone 10 mg/mL oral concentrate 75 mg PO DAILY 02/03/23 02/03/23 Previous Rx's Medication Instructions Recorded famotidine 20 mg tablet 20 mg PO DAILY #30 tabs 12/07/23 Allergies Allergy/AdvReac Type Severity Reaction Status Date / Time No Known Allergies Allergy Verified 12/19/23 03:52 Review of Systems Constitutional: Constitutional: Reports no additional constitutional complaints ENT: Reports system reviewed and no additional complaints, except as documented Cardiovascular: Cardiovascular: Reports no additional cardiovascular complaints Respiratory: Respiratory: Reports no additional respiratory complaints Musculoskeletal: Comments: rt ankle PMFSH Past Medical History Attestation statement: The following information was validated with the patient. COUNTS INCLUDE 234 BEDS AT THE [facility] Narrative: IVDA Source: unable to obtain Onset Date is defined in the Problem List Problems that require an onset date and time if occurred within 24 hrs of arrival to the ED Aortic Dissection and Rupture; Neurologic impairment; Cardiopulmonary Arrest; Endotracheal Intubation; Insertion or Replacement of Mechanical Circulatory Assist Device Medical History Tobacco use (~01/31/23) Heroin abuse Drug abuse Surgical History Surgical history unknown Social History Social History Household Members: None Household Members Other:: Homeless Housing: Homeless Do you presently have visiting nurse or other home services: No Unable to assess alcohol history related to: Unable to respond Alcohol intake: never Comment: [facility] Patient Tobacco Use Status: Current everyday Tobacco user Tobacco use type: Cigarette Smoked in Last 30 Days: Yes Second Hand Smoke Exposure: No Use of substances other than those prescribed or required for medical reasons: Yes Substance Use Type: Heroin Advance Directives: Yes Advance Directives on File: Yes Advance Directives Date on File: 02/05/23 service: No Current occupational status: unemployed Physical Exam Vital Signs: Vital Signs: Last Vital Signs Temp 97.8 F 12/19/23 06:06 Pulse 70 12/19/23 06:06 Resp 14 12/19/23 06:06 BP 126/80 12/19/23 06:06 Pulse Ox 99 12/19/23 06:06 O2 Del Method Room Air 12/19/23 06:06 BMI result Body Mass Index 23.5 Const: General: cooperative Nutritional Appearance: well nourished Orientation/consciousness: patient oriented x3 Limitations: no limitations HEENT: Head: Yes normal to inspection Ears: hearing grossly normal bilaterally General nose exam: Normal external nose present Face and sinus: Yes normal facial exam Mouth: Normal oral and palatal mucosa present Throat: Yes posterior oropharynx normal Neck: Neck: Yes normal visual inspection Carotids: normal carotid upstroke Chest: Chest palpation & inspection: normal inspection of the chest Breast/axilla inspection: normal inspection of the breasts Resp: Effort & Inspection: normal respiratory effort Auscultation: clear to auscultation bilaterally Cardio: Jugular venous distension: no JVD Rate: regular rate Rhythm: regular rhythm GI: Inspection: Yes normal to inspection Palpation (GI): Soft to palpation, not firm and nontender Percussion: Yes normal to percussion Auscultation: normal bowel sounds : General: Yes no CVA tenderness Back/Spine/Pelvis: Back: no CVA tenderness Skin: General skin exam: no rashes or lesions noted and elasticity normal Lesions: no lesions Rashes: no rashes Wounds: no wounds Neuro: General: patient oriented x3 Cranial nerves: Yes CN's II-XII intact bilaterally Motor exam (neuro): 5/5 motor strength present throughout Coordination: [id number] test normal Extrem: Other: rt ankle no deformity ,no laceration,good pulses General: Yes capillary refill normal Course Reevaluation(s) Reevaluation #1: eating sandwich and drinking,xray negative anticipate discharge. xray no fx ? foreign body over Achilles tendon but he has no laceration likely artifact Medical Decision Making Medical Decision Making MDM Narrative: Patient presented complaining of right ankle pain/sprain will obtain imaging and reassess; also he is complaining of pain in the sacral area he is concerned about an abscess I examined the area and there is no evidence of abscess. Differential Diagnosis Differential Diagnoses: The differential diagnosis associated with the presentation includes Ankle fracture/ ankle dislocation/ ankle sprain Admission/Observation Consideration of admission/observation: Escalation of care including admission/observation considered Independent Interpretation I performed an independent interpretation of an: Plain X-Ray Interpretation: I personally review and interpreted the x-ray of the right ankle negative for fracture Radiology Impression Discussion of test interpretation with radiology: I have reviewed the radio logist's reading. Radiologist Impression: COMPARISON: None available. TECHNIQUE: AP, lateral, and mortise views of the right ankle. FINDINGS: The bone mineralization is normal. The joint spaces are maintained. There is no fracture. There is a small radiopaque density measuring 1.5 mm along the inferior Achilles tendon. A small heel spur is noted. XR/XR ankle RT min 3V IMPRESSION: 1. No fracture or dislocation. 2. Small heel spur. 3. Small radiopaque density along the inferior Achilles tendon. This is possibly a foreign body but of uncertain acuity and current significance. Dictated By: Ismael Rodriguez Signed By: <Electronically signed by Ismael Rodriguez in [place]> 12/19/23 0539 External Record Review External record reviewed: Inpatient record Chronic Conditions Opioid use disorder Social Determinants Patient?s care significantly limited by Social Determinants of Health including: Inadequate housing and Other Social Determinant of Health Drug use/homeless can not go to follow up Discharge Plan Discharge Clinical Impression: Opioid use disorder Ankle sprain Qualifiers: Encounter type: initial encounter Involved ligament of ankle: unspecified ligament Laterality: right Qualified Code(s): S93.401A - Sprain of unspecified ligament of right ankle, initial encounter Patient Disposition: Home, Self-Care Instructions: Ankle Sprain (DC) Additional Instructions: Rest ankle keep you ankle elevated Prescriptions: No Action methadone 10 mg/mL Concentrate 75 mg PO DAILY famotidine 20 mg tablet 20 mg PO DAILY Qty: 30 0RF Referrals: Enrico Maurice MD [Physician] - 3 days Interventions: ED Discharge Assessment Last Done: 12/19/23 08:33 Discharge Date/Time: 12/19/23 08:36
== END 2023-12-19 08:36 | disposition home or self-care (01) ==
PROVIDERS: Emergency Provider Emergency Medicine
DX: S93.401A Sprain of unspecified ligament of right ankle, initial encounter (principal); M77.31 Calcaneal spur, right foot; F11.10 Opioid abuse, uncomplicated; F17.210 Nicotine dependence, cigarettes, uncomplicated; X58.XXXA Exposure to other specified factors, initial encounter; Y93.9 Activity, unspecified; Y92.410 Unspecified street and highway as the place of occurrence of the external cause; Y99.8 Other external cause status
CPT/HCPCS: 73610; 99283; 99284

== ENCOUNTER 2024-02-02 01:24 | Emergency (ER) | payer MEDICARE, SELFPAY ==
--- NOTE | ~2024-02-02 | XR_ITS ---
EXAMINATION: XR CHEST CLINICAL INFORMATION: Cough COMPARISON: 09/26/2022 TECHNIQUE: Frontal view of the chest was obtained. FINDINGS: Findings suggest healing rib fractures on the left. Correlation would need to be made. There is no convincing evidence for an underlying infiltrate. Some basilar markings which I believe were present previously. There is no effusion. Cardiac silhouette is within normal limits. The hilar regions do not appear pathologically large. XR/XR chest 1V IMPRESSION: No convincing evidence for an infiltrate here. Probable Healing rib fractures on the left. Correlation recommended clinically
--- NOTE | ~2024-02-02 | CT_ITS ---
EXAMINATION: CT ABDOMEN AND PELVIS WITHOUT CONTRAST CLINICAL INFORMATION: Lower abdominal pain COMPARISON: None available. TECHNIQUE: Multidetector volumetric imaging was performed from the superior aspect of the liver through the pubic symphysis. Sagittal and coronal reformatted images were obtained on the technologist's workstation. This CT examination was performed using dose optimization techniques as appropriate, variously including the following: *Automated exposure control *Adjustment of mA and/or kV according to patient size (this includes techniques or standardized protocols for targeted exams where dose is matched to indication/reason for exam; i.e. extremities or head) *Use of iterative reconstruction technique DLP: 359 mGy-cm FINDINGS: Limited evaluation throughout the abdomen/pelvis in the absence of intravenous contrast. LUNG BASES: The visualized lung bases are unremarkable. LIVER, GALLBLADDER, AND BILIARY TREE: The liver is normal in size, shape, and attenuation. No focal hepatic lesion or biliary ductal dilatation is identified on this noncontrast exam. The gallbladder is unremarkable. PANCREAS: Not well delineated in the absence of intravenous contrast. SPLEEN: Unremarkable. ADRENAL GLANDS: Unremarkable. KIDNEYS AND URETERS: No hydronephrosis or obstructing calculus identified. BLADDER: Unremarkable. GASTROINTESTINAL TRACT: No convincing evidence for bowel obstruction. Large volume of stool is present throughout the colon. No significant bowel wall thickening is seen. The appendix may contain foci of gas, though this is not adequately assessed due to lack of intra-abdominal fat in the absence of intravenous contrast. Possible trace pelvic free fluid. No free air is seen. ABDOMINAL WALL: No significant hernia is appreciated. LYMPH NODES: Significantly limited evaluation in the absence of intravenous contrast. VASCULAR: Unenhanced vasculature is grossly unremarkable. PELVIC VISCERA: Unremarkable. OSSEOUS STRUCTURES: Healing fractures of the lateral left eighth through 10th ribs are noted. A few chronic appearing right rib deformities are also present. Chronic appearing deformity of the right inferior pubic ramus. Bilateral L4 pars defects with grade 1 anterolisthesis of L4 on L5. CT/CT abdomen pelvis wo IV con IMPRESSION: Significantly limited evaluation in the absence of intravenous contrast. Possible trace pelvic free fluid, of uncertain etiology. Large volume of stool throughout the colon.
[2024-02-02 01:45] VITALS: BP 136/99; PULSE 88; RESP 20; TEMP 37.3; O2SAT 98; BMI 23.2
[2024-02-02 02:06] LABS: Basophils Absolute Auto 0.1 X10*3/uL (0.0-0.2); Basophils Percent Auto 0.4 % (0-2); Eosinophils Absolute Auto 0.5 X10*3/uL (0.0-0.4); Eosinophils Percent Auto 2.7 % (0-4); Hematocrit 41.9 % (42.0-52.0); Hemoglobin 13.3 g/dl (14.0-18.0); Imm Gran Abs Auto 0.09 X10*3/uL (0.00-0.03); Imm Gran Pct Auto 0.5 % (0.0-0.4); Lymphocytes Absolute Auto 3.3 X10*3/uL (1.2-4.9); Lymphocytes Percent Auto 19.7 % (20-40); MANUAL DIFF FLAG NO; Mean Corpuscular HGB Conc 31.7 g/dl (31.0-36.0); Mean Corpuscular Volume 91.3 fL (80.0-98.0); Mean Platelet Volume 8.5 fL (9.4-12.4); Neutrophils Absolute Auto 11.7 x10*3/uL (2.0-8.3); Neutrophils Percent Auto 70.7 % (45-73); Platelet Count 439 X10*3/uL (160-400); Red Blood Count 4.59 X10*6/uL (4.60-5.80); Red Cell Distribution Width 13.1 % (11.0-16.0); White Blood Count 16.6 X10*3/uL (4.8-10.8)
[2024-02-02 02:23] LABS: Alanine Aminotransferase 24 U/L (0-40); Albumin Level 4.3 g/dL (3.5-5.0); Alkaline Phosphatase 85 U/L (39-117); Anion Gap 10 (12-20); Aspartate Amino Transferase 32 U/L (5-37); Bilirubin Direct 0.1 mg/dL (0.0-0.5); Bilirubin Total 0.3 mg/dL (0.0-1.0); Blood Urea Nitrogen 22 mg/dL (9-16); Calcium 9.1 mg/dL (8.4-10.2); Carbon Dioxide 33 mmol/L (22-29); Chloride 101 mmol/L (96-108); Creatinine Clr Calc Pharmacy 109.9; Estimated Glomerular Filt Rate > 60; Glucose Random 104 mg/dL (60-115); Lipase 20 U/L (8-78); Potassium 3.8 mmol/L (3.3-5.1); Sodium 140 mmol/L (135-145); Total Protein 7.3 g/dL (6.5-8.0)
[2024-02-02 03:20] VITALS: BP 126/80; PULSE 79; RESP 14; TEMP 36.7; O2SAT 97
--- NOTE | 2024-02-02 03:40 | ED_ITS ---
HPI - Abdominal Pain General Chief Complaint: Abdominal Pain Stated Complaint: stomach pain Time Seen by Provider: 02/02/24 03:36 Source: patient Mode of arrival: ambulatory Limitations: no limitations History of Present Illness HPI narrative: Patient has very poor history with history of IVDA use complaining of pain all over the abdomen for last 2 -3 days with nausea and vomiting it does have chronic pain in the past but he says that is getting worse in the ER patient found to be sleeping without any distress Related Data Home Medications Medication Instructions Recorded Confirmed methadone 10 mg/mL oral concentrate 75 mg PO DAILY 02/03/23 02/03/23 Previous Rx's Medication Instructions Recorded famotidine 20 mg tablet 20 mg PO DAILY #30 tabs 12/07/23 bisacodyl 5 mg tablet,delayed 10 mg (2 x 5 mg) PO BEDTIME PRN 02/02/24 release (Dulcolax (bisacodyl)) constipation #30 tabs cefuroxime axetil 500 mg tablet 500 mg PO BID 7 days #14 tabs 02/02/24 doxycycline hyclate 100 mg tablet 100 mg PO BID #20 tabs 02/02/24 polyethylene glycol 3350 17 17 g PO DAILY #510 grams 02/02/24 gram/dose oral powder (Miralax) Allergies Allergy/AdvReac Type Severity Reaction Status Date / Time No Known Allergies Allergy Verified 02/02/24 01:45 Review of Systems Review of Systems Yes all other systems are reviewed and are negative COUNT INCLUDES [facility] Past Medical History Medical History Tobacco use (~01/31/23) Heroin abuse Drug abuse Surgical History Surgical history unknown Social History Social History Household Members: None Household Members Other:: Homeless Housing: Homeless Do you presently have visiting nurse or other home services: No Unable to assess alcohol history related to: Unable to respond Alcohol intake: never Comment: [facility] [place] Patient Tobacco Use Status: Current everyday Tobacco user Tobacco use type: Cigarette Smoked in Last 30 Days: Yes Second Hand Smoke Exposure: No Use of substances other than those prescribed or required for medical reasons: Yes Substance Use Type: Heroin Substance Use Frequency: Chronic Longstanding Last Used Substance: Days (ago) Any prior treatment program specific to substance use: Yes Advance Directives: Yes Advance Directives on File: Yes Advance Directives Date on File: 02/05/23 service: No Current occupational status: unemployed Physical Exam ED Vital Signs: Vital Signs - 24 hr 02/02/24 01:45 02/02/24 03:20 02/02/24 04:09 Temperature 99.1 F 98.0 F 98.6 F Pulse Rate 88 79 79 Respiratory Rate 20 14 14 Blood Pressure 136/99 H 126/80 148/92 H Pulse Oximetry 98 97 97 Oxygen Delivery Method Room Air Room Air Room Air 02/02/24 05:47 Temperature 98.9 F Pulse Rate 71 Respiratory Rate 16 Blood Pressure 124/84 Pulse Oximetry 97 Oxygen Delivery Method Room Air BMI result Body Mass Index 23.2 Appearance: Alert. Oriented X3. No acute distress. Eyes: No pallor or icterus ENT: Pharynx normal. Oral Mucosa moist Neck: Normal inspection. Neck supple. CVS: Normal heart rate and rhythm. Pulses normal. Respiratory: No respiratory distress. Equal air entry bilateral, no wheezing/rales/rhonchi Abdomen: Soft and diffuse tenderness no rebound tenderness got Bowel sounds are present, no mass palpable, no CVA tenderness Skin: Skin warm and dry. Normal skin color. Normal skin turgor. Extremities: No lower extremity edema. No calf tenderness Neuro: Oriented X 3. Medical Decision Making Medical Decision Making [facility] Narrative: Patient feeling much better now walking around denies any significant abdominal pain no cough during stay in the ER just were clear on auscultation has leukocytosis likely reactionary, no source of infection noticed CT scan negative for acute pathology chest x-ray showed bronchitis discharge patient home on doxycycline and Ceftin Differential Diagnosis Differential Diagnoses: The differential diagnosis associated with the presentation includes Appendicitis/constipation/chronic pain Admission/Observation Consideration of admission/observation: Escalation of care including admission/observation considered Lab Data [facility] Lab Attestation statement: I reviewed the patient's lab results. 02/02/24 02:02 02/02/24 02:02 Labs: Lab Results 02/02/24 02/02/24 Range/Units 02:02 04:14 WBC 16.6 H (4.8-10.8) X10*3/uL RBC 4.59 L (4.60-5.80) X10*6/uL Hgb 13.3 L (14.0-18.0) g/dl Hct 41.9 L (42.0-52.0) % MCV 91.3 (80.0-98.0) fL MCH 29.0 (27.0-33.0) pg MCHC 31.7 (31.0-36.0) g/dl RDW 13.1 (11.0-16.0) % Plt Count 439 H (160-400) X10*3/uL MPV 8.5 L (9.4-12.4) fL Immature Gran % (Auto) 0.5 H (0.0-0.4) % Neut % (Auto) 70.7 (45-73) % Lymph % (Auto) 19.7 L (20-40) % [place] % (Auto) 6.0 (2-11) % Eos % (Auto) 2.7 (0-4) % Baso % (Auto) 0.4 (0-2) % Lymph # (Auto) 3.3 (1.2-4.9) X10*3/uL [place] # (Auto) 1.0 (0.1-1.2) X10*3/uL Eos # (Auto) 0.5 H (0.0-0.4) X10*3/uL Baso # (Auto) 0.1 (0.0-0.2) X10*3/uL Abs Immat Gran (auto) 0.09 H (0.00-0.03) X10*3/uL Absolute Neuts (auto) 11.7 H (2.0-8.3) x10*3/uL Absolute Nucleated RBC 0.000 (0.0-0.012) X10*3/uL Nucleated RBC % (auto) 0.0 (0.0-0.2) /100WBC Sodium 140 (135-145) mmol/L Potassium 3.8 (3.3-5.1) mmol/L Chloride 101 (96-108) mmol/L Carbon Dioxide 33 H (22-29) mmol/L Anion Gap 10 L (12-20) BUN 22 H (9-16) mg/dL Creatinine 0.86 (0.5-1.4) mg/dL Estim Creat Clear Calc 109.9 Estimated GFR > 60 Random Glucose 104 (60-115) mg/dL Calcium 9.1 (8.4-10.2) mg/dL Total Bilirubin 0.3 (0.0-1.0) mg/dL Direct Bilirubin 0.1 (0.0-0.5) mg/dL AST 32 (5-37) U/L ALT 24 (0-40) U/L Alkaline Phosphatase 85 (39-117) U/L Total Protein 7.3 (6.5-8.0) g/dL Albumin 4.3 (3.5-5.0) g/dL Lipase 20 (8-78) U/L Urine Color Yellow Urine Appearance Clear Urine pH 6.5 (5.0-9.0) Ur Specific Darling 1.025 (1.005-1.025) Urine Protein Negative (Neg-Trace) mg/dL Urine Glucose (UA) Negative (Negative) mg/dL Urine Ketones Negative (Negative) mg/dL Urine Blood Negative (Negative) Urine Nitrite Negative (Negative) Ur Leukocyte Esterase Negative (Negative) Urine Opiates Screen POSITIVE H (Not Detect) Urine Fentanyl Screen POSITIVE H (Not Detect) Ur Barbiturates Screen Not Detected (Not Detect) Ur Phencyclidine Scrn Not Detected (Not Detect) Ur Amphetamines Screen Not Detected (Not Detect) U Benzodiazepines Scrn Not Detected (Not Detect) Urine Cocaine Screen POSITIVE H (Not Detect) U Marijuana (THC) Screen Not Detected (Not Detect) Independent Interpretation I performed an independent interpretation of an: CT Scan Radiology Impression Discussion of test interpretation with radiology: I have reviewed the radiologist's reading. Medications Administered Discontinued Medications Generic Name Dose Route Start Last Admin Trade Name Kennedi PRN Reason Stop Dose Admin Bisacodyl 10 mg 02/02/24 06:25 02/02/24 06:34 Bisacodyl 5 Mg Tablet. PO 02/02/24 06:26 10 mg ONCE ONE Administration Cefuroxime Axetil 500 mg 02/02/24 06:36 02/02/24 06:45 Cefuroxime Axetil 500 Mg Tablet PO 02/02/24 06:37 500 mg ONCE ONE Administration Doxycycline Monohydrate 100 mg 02/02/24 06:36 02/02/24 06:45 Doxycycline Monohydrate 100 Mg Capsule PO 02/02/24 06:37 100 mg ONCE ONE Administration Magnesium Hydroxide 30 ml 02/02/24 06:25 02/02/24 06:35 Milk Of Magnesia 30 Ml Oral.Susp PO 02/02/24 06:26 30 ml ONCE ONE Administration Discharge Plan Discharge Clinical Impression: Substance use disorder, Constipation, Acute bronchitis Patient Disposition: Home, Self-Care Instructions: Constipation (ED), Acute Bronchitis (ED), Polysubstance Abuse (ED) Additional Instructions: Drink plenty of fluids Stop using opiates and cocaine Stool softener as prescribed Take antibiotic as prescribed Prescriptions: New polyethylene glycol 3350 [Miralax] 17 gram/dose powder 17 g PO DAILY Qty: 510 0RF bisacodyl [Dulcolax (bisacodyl)] 5 mg tablet,delayed release (DR/EC) 10 mg PO BEDTIME PRN (Reason: constipation) Qty: 30 0RF cefuroxime axetil 500 mg tablet 500 mg PO BID 7 Days Qty: 14 0RF doxycycline hyclate 100 mg tablet 100 mg PO BID Qty: 20 0RF No Action methadone 10 mg/mL Concentrate 75 mg PO DAILY famotidine 20 mg tablet 20 mg PO DAILY Qty: 30 0RF Interventions: ED Discharge Assessment Last Done: 02/02/24 06:46 Discharge Date/Time: 02/02/24 06:47
[2024-02-02 04:09] VITALS: BP 148/92; PULSE 79; RESP 14; TEMP 37; O2SAT 97
[2024-02-02 04:20] LABS: Appearance Urine Clear; Color Urine Yellow; Glucose Urine UA Negative (Negative); Leukocyte Esterase Urine Negative (Negative); Nitrite Urine Negative (Negative); PH 6.5 (5.0-9.0); Specific Gravity - Urine 1.025 (1.005-1.025); Urine Blood Negative (Negative); Urine Ketones Negative (Negative); Urine Protein Negative (Neg-Trace)
[2024-02-02 04:27] LABS: Amphetamine Screen Urine Not Detected (Not Detect); Barbiturates, Urine Not Detected (Not Detect); Benzodiazepines Screen Urine Not Detected (Not Detect); Cannabinoid Screen Urine Not Detected (Not Detect); Cocaine Screen Urine POSITIVE (Not Detect); Fentanyl, urine POSITIVE (Not Detect); Opiate Screen Urine POSITIVE (Not Detect); Phencyclidine Screen Urine Not Detected (Not Detect)
[2024-02-02 05:47] VITALS: BP 124/84; PULSE 71; RESP 16; TEMP 37.2; O2SAT 97
[2024-02-02] MEDS: bisacodyL 5 MG TABLET.DR 10 MG PO (06:34)
[2024-02-02] MEDS: Milk of Magnesia 30 ML ORAL.SUSP PO (06:35)
[2024-02-02] MEDS: cefuroxime axetiL 500 MG TABLET PO (06:45)
[2024-02-02] MEDS: Doxycycline Monohydrate 100 MG CAPSULE PO (06:45)
== END 2024-02-02 06:47 | disposition home or self-care (01) ==
PROVIDERS: Emergency Provider Internal Medicine
DX: K59.00 Constipation, unspecified (principal); J20.9 Acute bronchitis, unspecified; F11.10 Opioid abuse, uncomplicated
CPT/HCPCS: 36415; 71045; 74176; 80048; 80076; 80307; 81003; 83690; 85025; 99284

== ENCOUNTER 2024-03-06 03:11 | Emergency (ER) | payer MEDICARE, SELFPAY ==
--- NOTE | ~2024-03-06 | CT_ITS ---
EXAMINATION: CT ABDOMEN AND PELVIS WITHOUT CONTRAST CLINICAL INFORMATION: Abdominal pain. COMPARISON: 02/02/2024 TECHNIQUE: Multidetector volumetric imaging was performed from the superior aspect of the liver through the pubic symphysis. Sagittal and coronal reformatted images were obtained on the technologist's workstation. This CT examination was performed using dose optimization techniques as appropriate, variously including the following: *Automated exposure control *Adjustment of mA and/or kV according to patient size (this includes techniques or standardized protocols for targeted exams where dose is matched to indication/reason for exam; i.e. extremities or head) *Use of iterative reconstruction technique DLP: 328 mGy-cm FINDINGS: Overall paucity of intra-abdominal fat limits evaluation. LUNG BASES: The visualized lung bases are unremarkable. LIVER, GALLBLADDER, AND BILIARY TREE: The noncontrast liver is normal in size and contour. No biliary ductal dilatation is present. The gallbladder is unremarkable with no evidence of radiopaque gallstones, gallbladder wall thickening, or obvious pericholecystic inflammatory changes. PANCREAS: No ductal dilatation. SPLEEN: Not enlarged. ADRENAL GLANDS: No adrenal mass. KIDNEYS AND URETERS: The kidneys are symmetric in size. No hydronephrosis, hydroureter, or calculi seen. No perinephric stranding. BLADDER: Unremarkable. GASTROINTESTINAL TRACT: Copious stool throughout the colon. No small bowel obstruction. ABDOMINAL WALL: No significant hernia is appreciated. LYMPH NODES: No bulky lymphadenopathy. Nonspecific mesenteric stranding and edema. VASCULAR: Normal caliber abdominal PELVIC VISCERA: Unremarkable. OSSEOUS STRUCTURES: No acute osseous abnormality. CT/CT abdomen pelvis wo IV con IMPRESSION: Nonspecific mesenteric stranding and edema. Constipation.
[2024-03-06 03:26] VITALS: BP 149/94; PULSE 91; RESP 16; TEMP 37.3; O2SAT 97; BMI 22.1
[2024-03-06 03:43] LABS: Basophils Percent Auto 0.3 % (0-2); Eosinophils Absolute Auto 0.4 X10*3/uL (0.0-0.4); Eosinophils Percent Auto 2.6 % (0-4); Hematocrit 41.5 % (42.0-52.0); Hemoglobin 13.5 g/dl (14.0-18.0); Imm Gran Abs Auto 0.04 X10*3/uL (0.00-0.03); Imm Gran Pct Auto 0.3 % (0.0-0.4); Lymphocytes Absolute Auto 2.5 X10*3/uL (1.2-4.9); Lymphocytes Percent Auto 17.7 % (20-40); MANUAL DIFF FLAG NO; Mean Corpuscular HGB Conc 32.5 g/dl (31.0-36.0); Mean Corpuscular Hemoglobin 29.7 pg (27.0-33.0); Mean Corpuscular Volume 91.4 fL (80.0-98.0); Mean Platelet Volume 8.6 fL (9.4-12.4); Monocytes Absolute Auto 0.9 X10*3/uL (0.1-1.2); Monocytes Percent Auto 6.2 % (2-11); Neutrophils Absolute Auto 10.3 x10*3/uL (2.0-8.3); Neutrophils Percent Auto 72.9 % (45-73); Platelet Count 381 X10*3/uL (160-400); Red Blood Count 4.54 X10*6/uL (4.60-5.80); Red Cell Distribution Width 12.6 % (11.0-16.0); White Blood Count 14.1 X10*3/uL (4.8-10.8)
[2024-03-06 04:02] LABS: Anion Gap 12 (12-20); Blood Urea Nitrogen 19 mg/dL (9-16); Calcium 8.8 mg/dL (8.4-10.2); Carbon Dioxide 30 mmol/L (22-29); Chloride 104 mmol/L (96-108); Creatinine Clr Calc Pharmacy 104.2; Estimated Glomerular Filt Rate > 60; Glucose Random 93 mg/dL (60-115); Sodium 142 mmol/L (135-145)
[2024-03-06 06:13] VITALS: BP 143/84; PULSE 75; RESP 16; TEMP 37.1; O2SAT 98
--- NOTE | 2024-03-06 06:52 | ED.ABDPAIN ---
HPI - Abdominal Pain General Chief Complaint: Abdominal Pain Stated Complaint: vomiting with blood Time Seen by Provider: 03/06/24 06:04 Source: patient Mode of arrival: ambulatory Limitations: no limitations History of Present Illness HPI narrative: 39 year old male history of opiate use disorder, heart murmur, tobacco use presenting to the emergency department with complaints of nausea, vomiting, abdominal pain, lightheadedness all of which started sometime yesterday. Patient is poor historian and he tells me his entire abdomen is hurting a lot. He is sleepy upon history taking and dozing off. When I asked him if anything else hurts he says no. Denies chest pain, shortness of breath, fevers, chills, sick contacts, vision changes, dizziness, weakness, hematemesis, diarrhea. Nursing note does state that he thinks he saw blood however when I asked him he tells me no. Related Data Home Medications ?Medication ?Instructions ?Recorded ?Confirmed methadone 10 mg/mL oral concentrate 75 mg PO DAILY 02/03/23 02/03/23 Previous Rx's ?Medication ?Instructions ?Recorded famotidine 20 mg tablet 20 mg PO DAILY #30 tabs 12/07/23 bisacodyl 5 mg tablet,delayed 10 mg (2 x 5 mg) PO BEDTIME PRN 02/02/24 release (Dulcolax (bisacodyl)) constipation #30 tabs cefuroxime axetil 500 mg tablet 500 mg PO BID 7 days #14 tabs 02/02/24 doxycycline hyclate 100 mg tablet 100 mg PO BID #20 tabs 02/02/24 polyethylene glycol 3350 17 17 g PO DAILY #510 grams 02/02/24 gram/dose oral powder (Miralax) docusate sodium 100 mg capsule 100 mg PO BID #20 caps 03/06/24 (Colace) polyethylene glycol 3350 17 17 g PO BID #238 grams 03/06/24 gram/dose oral powder (Miralax) sennosides 8.6 mg tablet (senna) 8.6 mg PO BEDTIME #14 tabs 03/06/24 Allergies Allergy/AdvReac Type Severity Reaction Status Date / Time No Known Allergies Allergy Verified 03/06/24 03:29 Review of Systems Review of Systems Yes all other systems are reviewed and are negative PMFSH Past Medical History Attestation statement: The following information was validated with the patient. Source: old records reviewed and nursing notes reviewed Medical History Tobacco use (~01/31/23) Heroin abuse Drug abuse Surgical History Surgical history unknown Social History Social History Household Members: None Household Members Other:: Homeless Housing: Homeless Do you presently have visiting nurse or other home services: No Unable to assess alcohol history related to: Unable to respond Alcohol intake: never [place] [facility] [place] Tobacco Use Status: Current everyday Tobacco user Tobacco use type: Cigarette Smoked in Last 30 Days: Yes Second Hand Smoke Exposure: No Use of substances other than those prescribed or required for medical reasons: Yes Substance Use Type: Heroin Advance Directives: Yes Advance Directives on File: Yes Advance Directives Date on File: 02/05/23 service: No Current occupational status: unemployed Physical Exam ED Vital Signs: Vital Signs - 24 hr 03/06/24 03:26 03/06/24 06:13 03/06/24 10:12 Temperature 99.1 F 98.8 F 98.7 F Pulse Rate 91 75 73 Respiratory Rate 16 16 18 Blood Pressure 149/94 H 143/84 H 134/91 H Pulse Oximetry 97 98 97 Oxygen Delivery Method Room Air Room Air Room Air BMI result Body Mass Index 22.1 vss Appearance: Alert.? Oriented X3.? No acute distress.? Head: Normocephalic, atraumatic, no step-offs or deformities Eyes: Pupils equal, round and reactive to light.? Neck: Normal inspection.? Neck supple.? CVS: Normal heart rate and rhythm.? Pulses normal.? Respiratory: No respiratory distress.? Breath sounds normal.? Abdomen: Soft and diffuse tenderness.? Skin: Skin warm and dry.? Normal skin color.? Normal skin turgor.? Extremities: No lower extremity edema.? No calf ttp. 5/5 strength to bilateral upper and lower extremities Neuro: Oriented X 3.? No motor deficit.? No sensory deficit. CN 2-12 intact Course Reevaluation(s) Reevaluation #1: CBC with leukocytosis however this is likely patient's baseline versus reactive from nausea and vomiting. No left shift. Chemistry no acute findings requiring intervention. Chronically elevated BUN/creatinine. Lipase within normal limits UA, urine toxicology pending. CT abdomen pending. Time: 07:30 Reevaluation #2: CT abdomen and pelvis nonspecific mesenteric stranding and edema as well as constipation. No mention of the appendix pain is not localized right lower quadrant unlikely appendicitis. I did call Radiology to see if they could comment on this. Patient eloped from the department he said he is feeling better before. Stated he had to leave. Did not get paperwork as he left prior to us getting in there. Time: 11:57 Reevaluation #3: I was informed by nursing patient eloped and he still had an IV in his arm. I am having them call [employer] police as he is an IV drug abuser, this could potentially be dangerous. Call out to [employer] by nursing Medical Decision Making Medical Decision Making [facility] [place] Narrative: 185 39 year old male presents w/ nausea, vomiting, abd pain x 2 days PE- diffuse abd tenderness HX and pe concerning for possible viral illness. Unlikely acute abdomen, appendicitis, cholecystitis, diverticulitis, obstruction, pancreatitis. Since patient appears to be pretty sleepy will obtain CHOI to rule out polysubstance abuse. Plan- labs, imaging,urine Differential Diagnosis Differential Diagnoses: The differential diagnosis associated with the presentation includes HX and pe concerning for possible viral illness. Unlikely acute abdomen, appendicitis, cholecystitis, diverticulitis, obstruction, pancreatitis. Since patient appears to be pretty sleepy will obtain CHOI to rule out polysubstance abuse. Admission/Observation Consideration of admission/observation: Escalation of care including admission/observation considered possible Lab Data [facility] [place] Lab Attestation statement: I reviewed the patient's lab results. 03/06/24 03:38 03/06/24 03:38 Labs: Lab Results 03/06/24 03/06/24 03/06/24 Range/Units 03:38 07:12 07:54 WBC 14.1 H (4.8-10.8) X10*3/uL RBC 4.54 L (4.60-5.80) X10*6/uL Hgb 13.5 L (14.0-18.0) g/dl Hct 41.5 L (42.0-52.0) % MCV 91.4 (80.0-98.0) fL MCH 29.7 (27.0-33.0) pg MCHC 32.5 (31.0-36.0) g/dl RDW 12.6 (11.0-16.0) % Plt Count 381 (160-400) X10*3/uL MPV 8.6 L (9.4-12.4) fL Immature Gran % (Auto) 0.3 (0.0-0.4) % Neut % (Auto) 72.9 (45-73) % Lymph % (Auto) 17.7 L (20-40) % [place] % (Auto) 6.2 (2-11) % Eos % (Auto) 2.6 (0-4) % Baso % (Auto) 0.3 (0-2) % Lymph # (Auto) 2.5 (1.2-4.9) X10*3/uL [place] # (Auto) 0.9 (0.1-1.2) X10*3/uL Eos # (Auto) 0.4 (0.0-0.4) X10*3/uL Baso # (Auto) 0.0 (0.0-0.2) X10*3/uL Abs Immat Gran (auto) 0.04 H (0.00-0.03) X10*3/uL Absolute Neuts (auto) 10.3 H (2.0-8.3) x10*3/uL Absolute Nucleated RBC 0.000 (0.0-0.012) X10*3/uL Nucleated RBC % (auto) 0.0 (0.0-0.2) /100WBC Sodium 142 (135-145) mmol/L Potassium 4.0 (3.3-5.1) mmol/L Chloride 104 (96-108) mmol/L Carbon Dioxide 30 H (22-29) mmol/L Anion Gap 12 (12-20) BUN 19 H (9-16) mg/dL Creatinine 0.87 (0.5-1.4) mg/dL Estim Creat Clear Calc 104.2 Estimated GFR > 60 Random Glucose 93 (60-115) mg/dL Calcium 8.8 (8.4-10.2) mg/dL Lipase 19 (8-78) U/L Ethyl Alcohol < 10 mg/dL Influenza Type A (PCR) NEGATIVE (Negative) Influenza Type B (PCR) NEGATIVE (Negative) RSV RNA Qual (PCR) NEGATIVE (Negative) SARS-CoV-2 RNA (RT-PCR) NEGATIVE (Negative) Independent Interpretation I performed an independent interpretation of an: CT Scan Radiology Impression Discussion of test interpretation with radiology: I have reviewed the radiologist's reading. External Record Review External record reviewed: Inpatient record, Office record, Outpatient record, Prior outpatient labs, Prior outpatient radiology, Primary care record and Outside ED record Critical Care Time Critical Care Time Critical Care Time: No Discharge Plan Discharge Clinical Impression: Nausea & vomiting, Abdominal pain, Constipation Patient Disposition: Elopement Instructions: Constipation (ED), High Fiber Diet (ED), Acute Nausea and Vomiting (ED), Abdominal Pain (ED) Additional Instructions: Take your medications as prescribed. If you were prescribed antibiotics today, it is important that you take your medication to their entirety, do not skip any doses, do not finish them early. Follow-up with your primary care provider this week. Return to the emergency department with new or worsening symptoms. Such as fevers, chills, chest pain, shortness of breath, nausea, vomiting, dizziness, headache, vision changes, lethargy In case of emergency call 911 Please take stool softeners as prescribed. Your CT scan results are below. CT/CT abdomen pelvis wo IV con IMPRESSION: Nonspecific mesenteric stranding and edema. Constipation. Prescriptions: New sennosides [senna] 8.6 mg tablet 8.6 mg PO BEDTIME Qty: 14 0RF docusate sodium [Colace] 100 mg capsule 100 mg PO BID Qty: 20 0RF polyethylene glycol 3350 [Miralax] 17 gram/dose powder 17 g PO BID Qty: 238 0RF No Action methadone 10 mg/mL Concentrate 75 mg PO DAILY famotidine 20 mg tablet 20 mg PO DAILY Qty: 30 0RF polyethylene glycol 3350 [Miralax] 17 gram/dose powder 17 g PO DAILY Qty: 510 0RF bisacodyl [Dulcolax (bisacodyl)] 5 mg tablet,delayed release (DR/EC) 10 mg PO BEDTIME PRN (Reason: constipation) Qty: 30 0RF cefuroxime axetil 500 mg tablet 500 mg PO BID 7 Days Qty: 14 0RF doxycycline hyclate 100 mg tablet 100 mg PO BID Qty: 20 0RF Referrals: Physician,None [Primary Care Provider] - 2 days Print Language: Divehi
[2024-03-06 07:28] LABS: Lipase 19 U/L (8-78)
[2024-03-06 07:54] LABS: Influenza A PCR NEGATIVE (Negative); Influenza B PCR NEGATIVE (Negative); Resp Syncy Virus RNA Qual PCR NEGATIVE (Negative); SARS COV2 PCR INHOUSE NEGATIVE (Negative)
[2024-03-06 08:19] LABS: Ethanol < 10 mg/dL
[2024-03-06 10:12] VITALS: BP 134/91; PULSE 73; RESP 18; TEMP 37.1; O2SAT 97
--- NOTE | 2024-03-06 12:09 | PC.NURSE ---
noticed pt was not in his bed, belongings gone. pt was last seen walking toward the exit tot he [place]. visualized on cameras with security that pt was re-dressed in his clothes, green hoodie with black jacket over, a red hat and a backpack on. last noticed on camera walking out of ED at 1155 - call placed to D to notify of pts elopement given that pt has a 20G in his R. forarm.
== END 2024-03-06 13:00 | disposition left against medical advice (07) ==
PROVIDERS: Physician Assistant; Student in an Organized Health Care Education/Training Program; Emergency Provider Emergency Medicine
DX: R11.2 Nausea with vomiting, unspecified (principal); R10.9 Unspecified abdominal pain; K59.00 Constipation, unspecified; F11.10 Opioid abuse, uncomplicated; Z03.818 Encounter for observation for suspected exposure to other biological agents ruled out
CPT/HCPCS: 0241U; 36415; 74176; 80048; 80307; 83690; 85025; 99284

== ENCOUNTER 2024-04-16 02:50 | Emergency (ER) | payer MEDICARE, SELFPAY ==
[2024-04-16 02:52] VITALS: BP 135/94; PULSE 79; RESP 16; TEMP 36.6; O2SAT 98; BMI 23.6
[2024-04-16 03:15] LABS: MANUAL DIFF FLAG NO
[2024-04-16 03:17] LABS: Basophils Absolute Auto 0.1 X10*3/uL (0.0-0.2); Basophils Percent Auto 0.5 % (0-2); Eosinophils Absolute Auto 0.7 X10*3/uL (0.0-0.4); Eosinophils Percent Auto 5.1 % (0-4); Hematocrit 38.9 % (42.0-52.0); Hemoglobin 12.8 g/dl (14.0-18.0); Imm Gran Abs Auto 0.04 X10*3/uL (0.00-0.03); Imm Gran Pct Auto 0.3 % (0.0-0.4); Lymphocytes Absolute Auto 3.1 X10*3/uL (1.2-4.9); Lymphocytes Percent Auto 24.3 % (20-40); Mean Corpuscular HGB Conc 32.9 g/dl (31.0-36.0); Mean Corpuscular Hemoglobin 30.1 pg (27.0-33.0); Mean Corpuscular Volume 91.5 fL (80.0-98.0); Mean Platelet Volume 8.6 fL (9.4-12.4); Monocytes Absolute Auto 0.8 X10*3/uL (0.1-1.2); Monocytes Percent Auto 6.3 % (2-11); Neutrophils Absolute Auto 8.1 x10*3/uL (2.0-8.3); Neutrophils Percent Auto 63.5 % (45-73); Platelet Count 358 X10*3/uL (160-400); Red Blood Count 4.25 X10*6/uL (4.60-5.80); Red Cell Distribution Width 12.3 % (11.0-16.0); White Blood Count 12.7 X10*3/uL (4.8-10.8)
[2024-04-16 03:25] LABS: Lactic Acid 0.8 mmol/L (0.5-2.0)
[2024-04-16 03:30] LABS: Alanine Aminotransferase 19 U/L (0-40); Albumin Level 4.1 g/dL (3.5-5.0); Alkaline Phosphatase 69 U/L (39-117); Anion Gap 15 (12-20); Aspartate Amino Transferase 30 U/L (5-37); Bilirubin Total 0.4 mg/dL (0.0-1.0); Blood Urea Nitrogen 22 mg/dL (9-16); Calcium 8.9 mg/dL (8.4-10.2); Carbon Dioxide 26 mmol/L (22-29); Chloride 101 mmol/L (96-108); Creatinine Clr Calc Pharmacy 128.2; Estimated Glomerular Filt Rate > 60; Glucose Random 109 mg/dL (60-115); Sodium 138 mmol/L (135-145)
== END 2024-04-16 09:19 | disposition left against medical advice (07) ==
PROVIDERS: Emergency Provider Emergency Medicine
DX: L02.412 Cutaneous abscess of left axilla (principal); Z53.21 Procedure and treatment not carried out due to patient leaving prior to being seen by health care provider
CPT/HCPCS: 36415; 80053; 83605; 85025; 99281; 99283

== ENCOUNTER 2024-09-03 17:46 | Emergency (ER) | payer MEDICARE, SELFPAY ==
--- NOTE | ~2024-09-03 | XR_ITS ---
EXAMINATION: XR SHOULDER, RIGHT CLINICAL INFORMATION: Pain status post fall COMPARISON: None available. TECHNIQUE: AP external rotation, Grashey, scapular Y, and axillary views of the right shoulder. FINDINGS: Acute minimally displaced fracture of the distal clavicular shaft. No disruption of the a.c. or CC joint as well as. Clinical joint intact. Visualized ribs intact. XR/XR shoulder RT min 2V IMPRESSION: Acute minimally displaced fracture of the distal clavicular shaft. Electronically signed by: Remy Dowling MD 09/03/2024 08:11 PM EDT
[2024-09-03 17:57] VITALS: BP 130/90; BP 137/96; PULSE 69; PULSE 74; RESP 18; TEMP 36.9; O2SAT 97; O2SAT 98; BMI 21.1
[2024-09-03 18:34] VITALS: PULSE 74
--- NOTE | 2024-09-03 19:03 | ED.GENADULT ---
HPI - General Adult General Chief complaint: General Medical Stated complaint: shoulder pain per [place] 7 hrs ago, little cp Time Seen by Provider: 09/03/24 19:03 Source: patient and police Mode of arrival: ambulatory Limitations: no limitations History of Present Illness ED Provider: tere MURILLO narrative: Patient is a police custody comes here with right shoulder pain says that got pain from shuffling while making arrest patient also has polysubstance abuse says in withdrawal able to move his right extremity pretty well no other injuries Related Data Home Medications ?Medication ?Instructions ?Recorded ?Confirmed methadone 10 mg/mL oral concentrate 75 mg PO DAILY 02/03/23 02/03/23 Previous Rx's ?Medication ?Instructions ?Recorded famotidine 20 mg tablet 20 mg PO DAILY #30 tabs 12/07/23 bisacodyl 5 mg tablet,delayed 10 mg (2 x 5 mg) PO BEDTIME PRN 02/02/24 release (Dulcolax (bisacodyl)) constipation #30 tabs cefuroxime axetil 500 mg tablet 500 mg PO BID 7 days #14 tabs 02/02/24 doxycycline hyclate 100 mg tablet 100 mg PO BID #20 tabs 02/02/24 polyethylene glycol 3350 17 17 g PO DAILY #510 grams 02/02/24 gram/dose oral powder (Miralax) docusate sodium 100 mg capsule 100 mg PO BID #20 caps 03/06/24 (Colace) polyethylene glycol 3350 17 17 g PO BID #238 grams 03/06/24 gram/dose oral powder (Miralax) sennosides 8.6 mg tablet (senna) 8.6 mg PO BEDTIME #14 tabs 03/06/24 ibuprofen 600 mg tablet 600 mg PO Q6H PRN fever or pain 09/03/24 #30 tabs Allergies Allergy/AdvReac Type Severity Reaction Status Date / Time No Known Allergies Allergy Verified 09/03/24 18:01 Review of Systems Review of Systems: Yes all other systems are reviewed and are negative PMFSH Past Medical History Medical History Tobacco use (~01/31/23) Heroin abuse Drug abuse Surgical History Surgical history unknown Social History Social History Household Members: None Household Members Other:: Homeless Housing: Homeless Do you presently have visiting nurse or other home services: No Unable to assess alcohol history related to: Unable to respond Alcohol intake: current Alcohol intake frequency: does not drink Alcohol type: beer and hard liquor Comment: C Patient Tobacco Use Status: Current everyday Tobacco user Tobacco use type: Cigarette Smoked in Last 30 Days: Yes Second Hand Smoke Exposure: No Use of substances other than those prescribed or required for medical reasons: Yes Substance Use Type: Crack/Cocaine, Heroin, Opiates and Other Advance Directives: Yes Advance Directives on File: Yes Advance Directives Date on File: 02/05/23 Do you have a plan to hurt others: No Plan service: No Current occupational status: unemployed Physical Exam ED Vital Signs: Vital Signs - 24 hr 09/03/24 17:57 09/03/24 20:08 09/03/24 20:09 Temperature 98.4 F 99.2 F 99.2 F Pulse Rate 74 80 80 Respiratory Rate 18 18 18 Blood Pressure 137/96 H 127/84 127/84 Pulse Oximetry 98 97 97 Oxygen Delivery Method Room Air Room Air Room Air BMI result Body Mass Index 21.1 Appearance: Alert. Oriented X3. No acute distress. anxious Eyes: PERRLA, No Nystagmus ENT: Pharynx normal. Oral Mucosa moist Neck: Normal inspection. Neck supple. CVS: Normal heart rate and rhythm. Pulses normal. Respiratory: No respiratory distress. Equal air entry bilateral, no wheezing/rales/rhonchi Abdomen: Soft and nontender. Bowel sounds are present, no mass palpable, no CVA tenderness Skin: Skin warm and dry. Normal skin color. Normal skin turgor. Extremities: No lower extremity edema. No calf tenderness right shoulder with good range of movement tenderness at distal clavicle no tenting of the skin Neuro: Oriented X 3. No motor deficit. No sensory deficit.No cerebellar signs , cranial nerves II-XII intact Medications Administered Discontinued Medications Generic Name Dose Route Start Last Admin Trade Name Freq PRN Reason Stop Dose Admin Ibuprofen 600 mg 09/03/24 19:06 09/03/24 19:31 Ibuprofen 600 Mg Tablet PO 09/03/24 19:07 600 mg ONCE ONE Administration Lorazepam 2 mg 09/03/24 19:03 09/03/24 19:32 Lorazepam 1 Mg Tablet PO 09/03/24 19:04 2 mg ONCE ONE Administration Medical Decision Making Medical Decision Making [facility] Narrative: Patient with minimal displaced distal clavicle shaft fracture sling was given advised to take ibuprofen for pain released to custody Independent Interpretation I performed an independent interpretation of an: Plain X-Ray Interpretation: [address] [address] XRay Report Signed Patient: Otoniel Squires MR#: [id number] : 1985 Acct:[id number] Age/Sex: 39 / M ADM Date: 09/03/24 Loc: HO.ED Attending Dr: Ordering Physician: Moises Herndon MD Date of Service: 09/03/24 Procedure(s): XR shoulder RT min 2V Accession Number(s): [id number] cc: Physician,None ; Moises Herndon MD~ EXAMINATION: XR SHOULDER, RIGHT CLINICAL INFORMATION: Pain status post fall COMPARISON: None available. TECHNIQUE: AP external rotation, Grashey, scapular Y, and axillary views of the right shoulder. FINDINGS: Acute minimally displaced fracture of the distal clavicular shaft. No disruption of the a.c. or CC joint as well as. Clinical joint intact. Visualized ribs intact. XR/XR shoulder RT min 2V IMPRESSION: Acute minimally displaced fracture of the distal clavicular shaft. Electronically signed by: Remy Dowling MD 09/03/2024 08:11 PM EDT R Radiology Impression Discussion of test interpretation with radiology: I discussed test interpretation with the radiologist Discharge Plan Discharge Clinical Impression: Closed fracture of right clavicle Patient Disposition: Home, Self-Care Instructions: Clavicle Fracture (ED) Additional Instructions: Wear the sling for support Fracture should heal off its own in 6-8 weeks Ibuprofen for pain Follow with Orthopedics Prescriptions: New ibuprofen 600 mg tablet 600 mg PO Q6H PRN (Reason: fever or pain) Qty: 30 0RF No Action methadone 10 mg/mL Concentrate 75 mg PO DAILY sennosides [senna] 8.6 mg tablet 8.6 mg PO BEDTIME Qty: 14 0RF docusate sodium [Colace] 100 mg capsule 100 mg PO BID Qty: 20 0RF polyethylene glycol 3350 [Miralax] 17 gram/dose powder 17 g PO BID Qty: 238 0RF famotidine 20 mg tablet 20 mg PO DAILY Qty: 30 0RF polyethylene glycol 3350 [Miralax] 17 gram/dose powder 17 g PO DAILY Qty: 510 0RF bisacodyl [Dulcolax (bisacodyl)] 5 mg tablet,delayed release (DR/EC) 10 mg PO BEDTIME PRN (Reason: constipation) Qty: 30 0RF cefuroxime axetil 500 mg tablet 500 mg PO BID 7 Days Qty: 14 0RF doxycycline hyclate 100 mg tablet 100 mg PO BID Qty: 20 0RF Referrals: Enrico Maurice MD [Physician] - 1 week Interventions: ED Discharge Assessment Last Done: 09/03/24 20:09 Discharge Date/Time: 09/03/24 20:11 Print Language: Citizen Of [place]
[2024-09-03] MEDS: Ibuprofen 600 MG TABLET PO (19:31)
[2024-09-03] MEDS: LORazepam 1 MG TABLET 2 MG PO (19:32)
[2024-09-03 20:08] VITALS: BP 127/84; PULSE 80; RESP 18; TEMP 37.3; O2SAT 97
[2024-09-03 20:09] VITALS: BP 127/84; PULSE 80; RESP 18; TEMP 37.3; O2SAT 97
== END 2024-09-03 20:11 | disposition home or self-care (01) ==
PROVIDERS: Emergency Provider Internal Medicine
DX: S42.001A Fracture of unspecified part of right clavicle, initial encounter for closed fracture (principal); M25.511 Pain in right shoulder; F11.23 Opioid dependence with withdrawal; F14.10 Cocaine abuse, uncomplicated; X58.XXXA Exposure to other specified factors, initial encounter; Y93.89 Activity, other specified; Y92.89 Other specified places as the place of occurrence of the external cause; Y99.8 Other external cause status; Z79.899 Other long term (current) drug therapy
CPT/HCPCS: 73030; 99284; 99285

== ENCOUNTER 2025-05-20 19:01 | Emergency (ER) | payer MEDICARE, MEDICAID, SELFPAY ==
[2025-05-20 19:04] VITALS: BP 118/70; PULSE 68; O2SAT 96
[2025-05-20 19:06] VITALS: BP 104/64; PULSE 75; RESP 12; TEMP 37.1; O2SAT 94; BMI 21.4
[2025-05-20 20:11] VITALS: BP 105/60; PULSE 84; RESP 18; O2SAT 97
--- NOTE | 2025-05-20 20:21 | ED_ITS ---
HPI - General Adult General Chief complaint: ETOH/Substance Use Stated complaint: from Pd, used 2 bags of crack & heroine Time Seen by Provider: 05/20/25 19:40 History of Present Illness HPI narrative: patient is a 40-year-old male with a history of crack cocaine and heroin abuse. Was found by PD to be lethargic. No Narcan was given. Patient was sent to the ED for further evaluation he is complaining of hungry feeling weak. Patient was found on a sidewalk. Homeless. Related Data Home Medications ?Medication ?Instructions ?Recorded ?Confirmed methadone 10 mg/mL oral concentrate 75 mg PO DAILY 07/2102/03/23 Previous Rx's ?Medication ?Instructions ?Recorded famotidine 20 mg tablet 20 mg PO DAILY #30 tabs 08/22 bisacodyl 5 mg tablet,delayed 10 mg (2 x 5 mg) PO BEDT ARIADNA PRN 02/02/24 release (Dulcolax (bisacodyl)) constipation #30 tabs cefuroxime axetil 500 mg tablet 500 mg PO BID 7 days # 14 tabs 02/02/24 doxycycline hyclate 100 mg tablet 100 mg PO BID #20 ta bs 02/02/24 polyethylene glycol 3350 17 17 g PO DAILY #510 grams 0 02/02/24 gram/dose oral powder (Miralax) docusate sodium 100 mg capsule 100 mg PO BID #20 caps 03/06/24 (Colace) polyethylene glycol 3350 17 17 g PO BID #238 grams 07/22 gram/dose oral powder (Miralax) sennosides 8.6 mg tablet (senna) 8.6 mg PO BEDTIME #14 tabs 03/06/24 ibuprofen 600 mg tablet 600 mg PO Q6H PRN fever or p ain 09/03/24 #30 tabs Allergies Allergy/AdvReac Type Severity Reaction Status Date / Time No Known Allergies Allergy Verified 05/20/25 19:13 Review of Systems Review of Systems: Positive heroin abuse positive cocaine abuse Yes all other systems are reviewed and are negative PMFSH Past Medical History Attestation statement: The following information was validated with the patient. Medical History Tobacco use (~01/31/23) Heroin abuse Drug abuse Surgical History Surgical history unknown Social History Social History Household Members: None Household Members Other:: Homeless Housing: Homeless Do you presently have visiting nurse or other home services: No Unable to assess alcohol history related to: Unable to respond Alcohol intake: current Alcohol intake frequency: does not drink Alcohol type: beer and hard liquor Comment: [facility] [place] Patient Tobacco Use Status: Current everyday Tobacco user Tobacco use type: Cigarette Second Hand Smoke Exposure: No Substance Use Type: Crack/Cocaine, Heroin, Opiates and Other Advance Directives: Yes Advance Directives on File: Yes Advance Directives Date on File: 02/05/23 Do you have a plan to hurt others: No Plan service: No Current occupational status: unemployed Physical Exam ED Vital Signs: Vital Signs - 24 hr 05/20/25 19:06 05/20/25 20:11 Temperature 98.7 F Pulse Rate 75 84 Respiratory Rate 12 18 Blood Pressure 104/64 105/60 Pulse Oximetry 94 97 Oxygen Delivery Method Room Air Room Air BMI result Body Mass Index 21.4 Appearance: Alert. Oriented X3. No acute distress. Eyes: Pupils equal, round and reactive to light. ENT: Pharynx normal. Neck: Normal inspection. Neck supple. No lymph nodes noted. No crepitus CVS: Normal heart rate and rhythm. Pulses normal. Normal S1 and S2 Respiratory: No respiratory distress. Breath sounds normal. No Wheezing. No rales Abdomen: Soft and nontender. No rigidity. No distention. good BS x4 Skin: Skin warm and dry. Normal skin color. Normal skin turgor. Extremities: No lower extremity edema. Neurovascular intact to all extremities. No Lacerations. No Rash Neuro: Oriented X 3. No motor deficit. No sensory deficit. Moving all extermities. No slurred speech Medical Decision Making Medical Decision Making MDM Narrative: Well-appearing no acute distress. Patient is monitored in the ER for 2 hours. Awake alert oriented no distress did not want detox. Will be discharged with PD. In stable condition. Differential Diagnosis Differential Diagnoses: The differential diagnosis associated with the presentation includes Admission/Observation Consideration of admission/observation: Escalation of care including admission/observation considered Chronic Conditions Polysubstance abuse Social Determinants Patient?s care significantly limited by Social Determinants of Health including: Alcoholism and drug addiction in family and Problems related to primary support group Discharge Plan Discharge Clinical Impression: Polysubstance abuse Patient Disposition: Home, Self-Care Instructions: Polysubstance Use Disorder (ED) Prescriptions: No Action methadone 10 mg/mL Concentrate 75 mg PO DAILY sennosides [senna] 8.6 mg tablet 8.6 mg PO BEDTIME Qty: 14 0RF docusate sodium [Colace] 100 mg capsule 100 mg PO BID Qty: 20 0RF polyethylene glycol 3350 [Miralax] 17 gram/dose powder 17 g PO BID Qty: 238 0RF ibuprofen 600 mg tablet 600 mg PO Q6H PRN (Reason: fever or pain) Qty: 30 0RF famotidine 20 mg tablet 20 mg PO DAILY Qty: 30 0RF polyethylene glycol 3350 [Miralax] 17 gram/dose powder 17 g PO DAILY Qty: 510 0RF bisacodyl [Dulcolax (bisacodyl)] 5 mg tablet,delayed release (DR/EC) 10 mg PO BEDTIME PRN (Reason: constipation) Qty: 30 0RF cefuroxime axetil 500 mg tablet 500 mg PO BID 7 Days Qty: 14 0RF doxycycline hyclate 100 mg tablet 100 mg PO BID Qty: 20 0RF Referrals: [facility] [Provider Group] - 05/23/25 Print Language: French
[2025-05-20 20:31] VITALS: BP 105/60; PULSE 84; RESP 18; TEMP 36.8; O2SAT 97
== END 2025-05-20 20:40 | disposition home or self-care (01) ==
PROVIDERS: Emergency Provider Emergency Medicine Emergency Medical Services
DX: F14.129 Cocaine abuse with intoxication, unspecified (principal); F11.129 Opioid abuse with intoxication, unspecified; Z79.899 Other long term (current) drug therapy; F17.210 Nicotine dependence, cigarettes, uncomplicated
CPT/HCPCS: 99283